=== PATIENT | male | born 1985 | race African-American/Black ===

== ENCOUNTER 2018-12-21 19:22 | Emergency (ER) | payer SELFPAY ==
[2018-12-21] MEDS ORDERED: NA CHLORIDE 0.9% 1,000 ML ONE (20:26)
[2018-12-21] MEDS ORDERED: ONDANSETRON 4 MG/2 ML VIAL ONE (20:26)
[2018-12-21 20:37] LABS: Absolute Lymphocytes (CBC) 2.2 K/uL (0.7-4.9); Absolute Monocytes 0.8 K/uL (0.1-1.3); Absolute Neutrophil 5.8 K/uL (1.8-8.0); Basophils % 0.6 % (0-1.3); Eosinophils % 0.9 % (0-4.4); Hematocrit 52.2 % (39.6-49.0); Lymphocytes % 24.2 % (15.3-44.8); MPV 8.8 fL (7.6-11.3); Monocytes % 8.6 % (3.3-12.3); RBC Red Blood Cell Count 5.73 M/uL (4.33-5.43)
[2018-12-21 21:01] LABS: Albumin 4.9 g/dL (3.4-5.0); Bilirubin Direct 0.1 mg/dL (0-0.2); Bilirubin Total 0.4 mg/dL (0.2-1.0); Potassium 3.9 mmol/L (3.5-5.1)
--- NOTE | 2018-12-21 21:59 | EDPHYS ---
Physician Documentation [facility] Name: Bucky Norton Age: 33 yrs Sex: Male : 1985 Arrival Date: 12/21/2018 Time: 19:24 Bed 8 Private MD: ED Physician Rohan Bright HPI: 12/21 20:40 This 33 yrs old Black Male presents to ER via Ambulatory with complaints of Pain All pm1 Over, Vomiting. 20:40 The patient presents to the emergency department with vomiting, diarrhea, abdominal pm1 pain, of the abdomen diffusely, described as crampy, and does not radiate. Onset: The symptoms/episode began/occurred yesterday. Possible causes: unknown. The symptoms are aggravated by nothing. The symptoms are alleviated by nothing. Associated signs and symptoms: Pertinent negatives: constipation, dysuria, fever. Severity of symptoms: in the emergency department the symptoms have improved Pain is currently a 0 / 10. The patient has not recently seen a physician. Historical: - Allergies: 19:53 No Known Allergies; fc - Home Meds: 19:53 None [Active]; fc - PMHx: 19:53 Hypertension; fc - PSHx: 19:53 None; fc - Immunization history:: Last tetanus immunization: unknown. - Social history:: Smoking status: Patient uses tobacco products, smokes one pack cigarettes per day. Patient uses alcohol, on a daily basis. 6 pack a day. Patient/guardian denies using street drugs. - Ebola Screening: : Patient negative for fever greater than or equal to 101.5 degrees Fahrenheit, and additional compatible Ebola Virus Disease symptoms Patient denies exposure to infectious person Patient denies travel to an Ebola-affected area in the 21 days before illness onset. ROS: 20:40 Constitutional: Negative for fever, chills, and weight loss, Eyes: Negative for injury, pm1 pain, redness, and discharge, ENT: Negative for injury, pain, and discharge, Neck: Negative for injury, pain, and swelling, Cardiovascular: Negative for chest pain, palpitations, and edema, Respiratory: Negative for shortness of breath, cough, wheezing, and pleuritic chest pain. 20:40 Back: Negative for injury and pain, : Negative for injury, bleeding, discharge, and swelling, MS/Extremity: Negative for injury and deformity, Skin: Negative for injury, rash, and discoloration, Neuro: Negative for headache, weakness, numbness, tingling, and seizure. 20:40 Abdomen/GI: Positive for abdominal pain, nausea, vomiting, and diarrhea, Negative for constipation. Exam: 20:40 Constitutional: This is a well developed, well nourished patient who is awake, alert, pm1 and in no acute distress. Head/Face: Normocephalic, atraumatic. Eyes: Pupils equal round and reactive to light, extra-ocular motions intact. Lids and lashes normal. Conjunctiva and sclera are non-icteric and not injected. Cornea within normal limits. Periorbital areas with no swelling, redness, or edema. ENT: Nares patent. No nasal discharge, no septal abnormalities noted. Tympanic membranes are normal and external auditory canals are clear. Oropharynx with no redness, swelling, or masses, exudates, or evidence of obstruction, uvula midline. Mucous membranes moist. Neck: Trachea midline, no thyromegaly or masses palpated, and no cervical lymphadenopathy. Supple, full range of motion without nuchal rigidity, or vertebral point tenderness. No Meningismus. Chest/axilla: Normal chest wall appearance and motion. Nontender with no deformity. No lesions are appreciated. Cardiovascular: Regular rate and rhythm with a normal S1 and S2. No gallops, murmurs, or rubs. Normal PMI, no JVD. No pulse deficits. Respiratory: Lungs have equal breath sounds bilaterally, clear to auscultation and percussion. No rales, rhonchi or wheezes noted. No increased work of breathing, no retractions or nasal flaring. 20:40 Back: No spinal tenderness. No costovertebral tenderness. Full range of motion. Skin: Warm, dry with normal turgor. Normal color with no rashes, no lesions, and no evidence of cellulitis. MS/ Extremity: Pulses equal, no cyanosis. Neurovascular intact. Full, normal range of motion. 20:40 Abdomen/GI: Inspection: obese Bowel sounds: normal, Palpation: abdomen is soft and non-tender, in all quadrants, mass, is not appreciated, rebound tenderness, is not appreciated. 20:40 Neuro: Orientation: is normal, Motor: is normal, moves all fours, Sensation: is normal, no obvious gross deficits, Gait: is steady, at a normal pace, without difficulty. 21:56 Abdomen/GI: Inspection: obese Bowel sounds: normal, Palpation: abdomen is soft and pm1 non-tender, in all quadrants, rebound tenderness, is not appreciated. Vital Signs: 19:53 BP 155 / 97; Pulse 102; Resp 20; Temp 98.6(O); Pulse Ox 97% on R/A; Weight 122.2 kg fc (M); Height 6 ft. 0 in. (182.88 cm) (R); Pain 6/10; 21:56 BP 143 / 104; Pulse 89; Resp 16; Pulse Ox 98% on R/A; la1 22:12 BP 143 / 98; Pulse 76; Resp 18; Temp 98.4(O); Pulse Ox 98% on R/A; Pain 0/10; la1 19:53 Body Mass Index 36.54 (122.20 kg, 182.88 cm) fc MDM: 20:04 Patient medically screened. pm1 21:56 Data reviewed: vital signs. Data interpreted: Pulse oximetry: on room air is 98 %. pm1 Interpretation: normal. Counseling: I had a detailed discussion with the patient and/or guardian regarding: the historical points, exam findings, and any diagnostic results supporting the discharge/admit diagnosis, lab results, the need for outpatient follow up, to return to the emergency department if symptoms worsen or persist or if there are any questions or concerns that arise at home. 21:56 Special discussion: Based on the patient's Hx, exam, and Dx evaluation, there is no pm1 indication for emergent surgery or inpatient Tx. It is understood by the patient/guardian that if the Sx's persist or worsen they need to return immediately for re-evaluation. 12/21 20:08 Order name: Basic Metabolic Panel; Complete Time: 21:26 pm1 12/21 20:08 Order name: CBC with Diff; Complete Time: 20:40 pm1 12/21 20:08 Order name: Creatinine for Radiology; Complete Time: 21:26 pm1 12/21 20:08 Order name: Hepatic Function; Complete Time: 21:26 pm1 12/21 20:08 Order name: Lipase; Complete Time: 21: pm1 12/21 20:08 Order name: IV Saline Lock; Complete Time: 20: pm12/21 20:08 Order name: Labs collected and sent; Complete Time: 20:22 pm1 Administered Medications: 20:21 Drug: NS 0.9% 1000 ml Route: IV; Rate: 1000 ml; Site: right antecubital; la1 21:30 Follow up: IV Status: Completed infusion; IV Intake: 1000ml la1 20:21 Drug: Zofran 4 mg Route: IVP; Site: right antecubital; la1 21:00 Follow up: Response: No adverse reaction; Nausea is decreased la1 Disposition: 12/21/18 21:58 Discharged to Home. Impression: Vomiting, Diarrhea, unspecified. - Condition is Stable. - Discharge Instructions: Food Choices to Help Relieve Diarrhea, Adult, Diarrhea, Adult, Nausea and Vomiting, Adult, Viral Gastroenteritis, Adult. - Prescriptions for Bentyl 20 mg Oral Tablet - take 1 tablet by ORAL route every 6 hours As needed; 20 tablet. Zofran 4 mg Oral Tablet - take 1 tablet by ORAL route every 12 hours As needed; 20 tablet. - Work release form, Medication Reconciliation Form, Thank You Letter, Antibiotic Education, Prescription Opioid Use form. - Follow up: Emergency Department; When: As needed; Reason: Worsening of condition. Follow up: Private Physician; When: 2 - 3 days; Reason: Recheck today's complaints, Continuance of care, Re-evaluation by your physician. - Problem is new. - Symptoms have improved. Addendum: 12/23/2018 15:30 Co-signature as Attending Physician, Rohan Bright MD. g s Signatures: Dispatcher [employer] EDIN Yamilex Schumacher RN RN David Sabillon RN RN la Jerardo Goss, EDITORIAL INTERN EDITORIAL INTERN pm Rohan Bright MD MD Corrections: (The following items were deleted from the chart) 12/21 22:20 21:58 12/21/2018 21:58 Discharged to Home. Impression: Vomiting; Diarrhea, unspecified. la1 Condition is Stable. Forms are Medication Reconciliation Form, Thank You Letter, Antibiotic Education, Prescription Opioid Use. Follow up: Emergency Department; When: As needed; Reason: Worsening of condition. Follow up: Private Physician; When: 2 - 3 days; Reason: Recheck today's complaints, Continuance of care, Re-evaluation by your physician. Problem is new. Symptoms have improved. pm1
--- NOTE | 2018-12-21 21:59 | ER ---
Nurse's Notes [facility] Name: Bucky Norton Age: 33 yrs Sex: Male : 1985 Arrival Date: 12/21/2018 Time: 19:24 Bed 8 Private MD: Diagnosis: Vomiting;Diarrhea, unspecified Presentation: 12/21 19:49 Presenting complaint: Patient states: that at lunch time he started to have abd fc cramping along with nausea and vomiting. Denies any diarrhea today. Pain to abd is worse in his right upper quad. He is also having pain to his left scapula area. Transition of care: patient was not received from another setting of care. Onset of symptoms was December 21, 2018 at 12:00. Risk Assessment: Do you want to hurt yourself or someone else? Patient reports no desire to harm self or others. Initial Sepsis Screen: Does the patient meet any 2 criteria? HR > 90 bpm. Yes Does the patient have a suspected source of infection? No. Patient's initial sepsis screen is negative. Care prior to arrival: None. 19:49 Method Of Arrival: Ambulatory 19:49 Acuity: RICHY 3 fc Triage Assessment: 19:53 General: Appears uncomfortable, obese, Behavior is calm, cooperative, appropriate for age. Pain: Complains of pain in right upper quadrant Pain currently is 6 out of 10 on a pain scale. Quality of pain is described as crampy, sharp, shooting, Pain began 8 hrs ago Is intermittent. EENT: No deficits noted. Neuro: Level of Consciousness is awake, alert, obeys commands, Oriented to person, place, time, situation, Appropriate for age. Cardiovascular: No deficits noted. Respiratory: No deficits noted. GI: Abdomen is round Reports lower abdominal pain, upper abdominal pain, cramping, nausea, vomiting. : No deficits noted. Derm: Skin is pink, warm \T\ dry. Musculoskeletal: Circulation, motion, and sensation intact. Capillary refill < 3 seconds, Range of motion: intact in all extremities. Historical: - Allergies: 19:53 No Known Allergies; fc - Home Meds: 19:53 None [Active]; fc - PMHx: 19:53 Hypertension; fc - PSHx: 19:53 None; fc - Immunization history:: Last tetanus immunization: unknown. - Social history:: Smoking status: Patient uses tobacco products, smokes one pack cigarettes per day. Patient uses alcohol, on a daily basis. 6 pack a day. Patient/guardian denies using street drugs. - Ebola Screening: : Patient negative for fever greater than or equal to 101.5 degrees Fahrenheit, and additional compatible Ebola Virus Disease symptoms Patient denies exposure to infectious person Patient denies travel to an Ebola-affected area in the 21 days before illness onset. Screenin:22 Abuse screen: Denies threats or abuse. Nutritional screening: No deficits noted. la1 Tuberculosis screening: No symptoms or risk factors identified. Fall Risk None identified. Assessment: 20:22 General: Appears in no apparent distress. Behavior is calm, cooperative. Neuro: Level la1 of Consciousness is awake, alert, obeys commands. Cardiovascular: Patient's skin is warm and dry. Respiratory: Airway is patent Respiratory effort is even, unlabored. GI: Abdomen is non-distended, obese, Reports nausea, vomiting. : No signs and/or symptoms were reported regarding the genitourinary system. 21:25 Reassessment: Patient appears in no apparent distress at this time. No changes from la1 previously documented assessment. Patient and/or family updated on plan of care and expected duration. Pain level reassessed. Patient is alert, oriented x 3, equal unlabored respirations, skin warm/dry/pink. 22:10 Reassessment: Pt states that he held down his water and is feeling better and is ready la1 to go home. General: Appears in no apparent distress. comfortable, Behavior is calm, cooperative, appropriate for age. Pain: Denies pain. Neuro: Level of Consciousness is awake, alert, obeys commands, Oriented to person, place, time, situation. Cardiovascular: No deficits noted. Respiratory: No deficits noted. GI: Abdomen is round obese, Bowel sounds present X 4 quads. Patient currently denies nausea, vomiting. : No deficits noted. EENT: No deficits noted. Derm: Skin is intact, Skin is dry, Skin is normal, Skin temperature is warm. Musculoskeletal: Circulation, motion, and sensation intact. Capillary refill < 3 seconds, Range of motion: intact in all extremities. Vital Signs: 19:53 BP 155 / 97; Pulse 102; Resp 20; Temp 98.6(O); Pulse Ox 97% on R/A; Weight 122.2 kg fc (M); Height 6 ft. 0 in. (182.88 cm) (R); Pain 6/10; 21:56 BP 143 / 104; Pulse 89; Resp 16; Pulse Ox 98% on R/A; la1 22:12 BP 143 / 98; Pulse 76; Resp 18; Temp 98.4(O); Pulse Ox 98% on R/A; Pain 0/10; la1 19:53 Body Mass Index 36.54 (122.20 kg, 182.88 cm) ED Course: 19:24 Patient arrived in ED. as 19:53 Triage completed. 19:53 Arm band placed on Patient placed in an exam room, on a stretcher. 19:59 Jerardo Goss NP is PHCP. pm1 19:59 Rohan Bright MD is Attending Physician. pm1 20:10 David Sabillon RN is Primary Nurse. la1 20:22 No provider procedures requiring assistance completed. Inserted saline lock: 22 gauge la1 in right antecubital area, using aseptic technique. Blood collected. 20:23 Call light in reach. la1 22:20 IV discontinued, intact, bleeding controlled, No redness/swelling at site. Pressure la1 dressing applied. Administered Medications: 20:21 Drug: NS 0.9% 1000 ml Route: IV; Rate: 1000 ml; Site: right antecubital; la1 21:30 Follow up: IV Status: Completed infusion; IV Intake: 1000ml la1 20:21 Drug: Zofran 4 mg Route: IVP; Site: right antecubital; la1 21:00 Follow up: Response: No adverse reaction; Nausea is decreased la1 Intake: 21:30 IV: 1000ml; Total: 1000ml. la1 Outcome: 21:58 Discharge ordered by . pm1 22:18 Discharged to home ambulatory, with significant other. la1 22:18 Condition: good 22:18 Discharge instructions given to patient, family, Instructed on discharge instructions, follow up and referral plans. no drinking with medication, no driving heavy equipment, medication usage, diet Demonstrated understanding of instructions, follow-up care, medications, diet Prescriptions given X 2. 22:20 Patient left the ED. la1 Signatures: Yamilex Schumacher RN RN Mandy Cobian Lee, RN RN la Jerardo Goss NP LEADING [employer]FIGH[employer] pm1 Corrections: (The following items were deleted from the chart) 20:01 19:53 BP 155 / 97; Pulse 102bpm; Resp 20bpm; Pulse Ox 97% RA; Temp 98.6F Oral; 113.4 kg fc Reported; Height 6 ft. 0 in. Reported; BMI: 33.9; Pain 6/10; fc
== END 2018-12-21 22:20 | disposition home or self-care (01) ==
LOC: ER 19:22
DX: R11.10 Vomiting, unspecified (principal); R19.7 Diarrhea, unspecified; R10.9 Unspecified abdominal pain; I10 Essential (primary) hypertension; F17.210 Nicotine dependence, cigarettes, uncomplicated
CPT/HCPCS: 36415; 80048; 80076; 83690; 85025; 96361; 96374; 99284; J2405; J7030

== ENCOUNTER 2019-05-15 07:55 | Emergency (ER) | payer SELFPAY ==
--- NOTE | 2019-05-15 08:47 | EDPHYS ---
Physician Documentation [facility] Name: Bucky Norton Age: 34 yrs Sex: Male : 1985 Arrival Date: 05/15/2019 Time: 08:00 Bed 13 Private MD: ED Physician Joni Watts HPI: 05/15 17:52 This 34 yrs old Black Male presents to ER via Ambulatory with complaints of Sore Throat.kdr 17:52 The patient presents with sore throat, dysphagia, of solids, of liquids. The patient kdr describes throat pain as scratchy. Onset: The symptoms/episode began/occurred gradually, Sunday. Severity of symptoms: At their worst the symptoms were mild, moderate, just prior to arrival, in the emergency department the symptoms are unchanged. Modifying factors: The symptoms are alleviated by nothing, the symptoms are aggravated by fluids, foods, swallowing, Patient's oral intake status: good unaware of sick contact. Associated signs and symptoms: The patient has no apparent associated signs or symptoms. The patient has experienced similar episodes in the past, a few times. The patient has not recently seen a physician. Historical: - Allergies: 08:02 No Known Allergies; rb1 - Home Meds: 08:02 None [Active]; rb1 - PMHx: 08:02 Hypertension; rb1 - PSHx: 08:02 None; rb1 - Immunization history:: Adult Immunizations up to date. - Social history:: Smoking status: Patient uses tobacco products, smokes one-half pack cigarettes per day. - Ebola Screening: : Patient negative for fever greater than or equal to 101.5 degrees Fahrenheit, and additional compatible Ebola Virus Disease symptoms. ROS: 17:52 Constitutional: Negative for fever, chills, and weight loss, Eyes: Negative for injury, kdr pain, redness, and discharge, Neck: Negative for injury, pain, and swelling, Cardiovascular: Negative for chest pain, palpitations, and edema, Respiratory: Negative for shortness of breath, cough, wheezing, and pleuritic chest pain, Abdomen/GI: Negative for abdominal pain, nausea, vomiting, diarrhea, and constipation. 17:52 ENT: Positive for difficulty swallowing, Negative for hoarseness. Exam: 17:52 Constitutional: This is a well developed, well nourished patient who is awake, alert, kdr and in no acute distress. Head/Face: Normocephalic, atraumatic. Eyes: Pupils equal round and reactive to light, extra-ocular motions intact. Lids and lashes normal. Conjunctiva and sclera are non-icteric and not injected. Cornea within normal limits. Periorbital areas with no swelling, redness, or edema. Neck: Trachea midline, no thyromegaly or masses palpated, and no cervical lymphadenopathy. Supple, full range of motion without nuchal rigidity, or vertebral point tenderness. No Meningismus. Chest/axilla: Normal chest wall appearance and motion. Nontender with no deformity. No lesions are appreciated. Cardiovascular: Regular rate and rhythm with a normal S1 and S2. No gallops, murmurs, or rubs. Normal PMI, no JVD. No pulse deficits. Respiratory: Lungs have equal breath sounds bilaterally, clear to auscultation and percussion. No rales, rhonchi or wheezes noted. No increased work of breathing, no retractions or nasal flaring. Abdomen/GI: Soft, non-tender, with normal bowel sounds. No distension or tympany. No guarding or rebound. No evidence of tenderness throughout. 17:52 ENT: TM's: are normal, Nose: is normal, Mouth: is normal, Posterior pharynx: Uvula: normal, swelling, that is mild, erythema, that is moderate, exudate, is not appreciated. Vital Signs: 08:02 BP 151 / 98; Pulse 83; Resp 20; Temp 98.0(O); Pulse Ox 97% on R/A; Weight 122.02 kg rb1 (R); Height 6 ft. 0 in. (182.88 cm) (R); Pain 7/10; 09:02 BP 120 / 95; Pulse 86; Resp 19; Pulse Ox 98% on R/A; rb1 08:02 Body Mass Index 36.48 (122.02 kg, 182.88 cm) rb1 MDM: 08:46 Patient medically screened. kdr 17:52 Data reviewed: vital signs, nurses notes, lab test result(s), radiologic studies. kdr Counseling: I had a detailed discussion with the patient and/or guardian regarding: the historical points, exam findings, and any diagnostic results supporting the discharge/admit diagnosis, lab results, radiology results, the need for outpatient follow up. 05/15 08:17 Order name: Strep; Complete Time: 08:45 rb1 Administered Medications: 09:05 Drug: Bicillin L-A 1.2 million units Route: IM; Site: right gluteus; rb1 09:20 Follow up: Response: No adverse reaction rb1 09:05 Drug: predniSONE 60 mg Route: PO; rb1 09:20 Follow up: Response: No adverse reaction rb1 09:05 Drug: Pepcid 20 mg Route: PO; rb1 09:20 Follow up: Response: No adverse reaction rb1 Disposition: 05/15/19 08:46 Discharged to Home. Impression: Streptococcal pharyngitis, Acute laryngopharyngitis. - Condition is Stable. - Discharge Instructions: Pharyngitis, Strep Throat. - Prescriptions for Prednisone 20 mg Oral Tablet - take 2 tablet by ORAL route once daily for 5 days; 10 tablet. Pepcid 20 mg Oral Tablet - take 1 tablet by ORAL route once daily; 20 tablet. - Medication Reconciliation Form, Thank You Letter, Antibiotic Education, Work release form form. - Follow up: Private Physician; When: 2 - 3 days; Reason: If symptoms return, Further diagnostic work-up, Recheck today's complaints, Continuance of care, Re-evaluation by your physician. - Problem is new. - Symptoms have improved. Signatures: Dispatcher [employer] EDMS Joni Watts MD MD kdr Barber, Rebecca, RN RN rb1 Corrections: (The following items were deleted from the chart) 09:22 08:46 05/15/2019 08:46 Discharged to Home. Impression: Streptococcal pharyngitis; Acute rb1 laryngopharyngitis. Condition is Stable. Forms are Medication Reconciliation Form, Thank You Letter, Antibiotic Education, Prescription Opioid Use. Follow up: Private Physician; When: 2 - 3 days; Reason: If symptoms return, Further diagnostic work-up, Recheck today's complaints, Continuance of care, Re-evaluation by your physician. Problem is new. Symptoms have improved. kdr
--- NOTE | 2019-05-15 08:47 | ER ---
Nurse's Notes [facility] Name: Bucky Norton Age: 34 yrs Sex: Male : 1985 Arrival Date: 05/15/2019 Time: 08:00 Bed 13 Private MD: Diagnosis: Streptococcal pharyngitis;Acute laryngopharyngitis Presentation: 05/15 08:02 Presenting complaint: Patient states: Sore throat since Sunday, pain when swallowing. rb1 Transition of care: patient was not received from another setting of care. Onset of symptoms was May 12, 2019. Risk Assessment: Do you want to hurt yourself or someone else? Patient reports no desire to harm self or others. Initial Sepsis Screen: Does the patient meet any 2 criteria? No. Patient's initial sepsis screen is negative. Does the patient have a suspected source of infection? No. Patient's initial sepsis screen is negative. Care prior to arrival: None. 08:02 Method Of Arrival: Ambulatory rb1 08:02 Acuity: RICHY 3 rb1 Triage Assessment: 08:02 General: Appears in no apparent distress. comfortable, Behavior is calm, cooperative, rb1 Denies fever. Pain: Complains of pain in throat Pain currently is 7 out of 10 on a pain scale. Pain began Sunday. EENT: Throat has enlarged tonsils. Neuro: Level of Consciousness is awake, alert, obeys commands, Oriented to person, place, time, situation. Cardiovascular: Capillary refill < 3 seconds is brisk in bilateral fingers. Respiratory: Reports cough that is non-productive, Airway is patent Respiratory effort is even, unlabored, Respiratory pattern is regular, symmetrical. GI: No signs and/or symptoms were reported involving the gastrointestinal system. : No signs and/or symptoms were reported regarding the genitourinary system. Derm: Skin is dry, Skin is normal, Skin temperature is warm. Historical: - Allergies: 08:02 No Known Allergies; rb1 - Home Meds: 08: None [Active]; rb1 - PMHx: 08:02 Hypertension; rb1 - PSHx: 08:02 None; rb1 - Immunization history:: Adult Immunizations up to date. - Social history:: Smoking status: Patient uses tobacco products, smokes one-half pack cigarettes per day. - Ebola Screening: : Patient negative for fever greater than or equal to 101.5 degrees Fahrenheit, and additional compatible Ebola Virus Disease symptoms. Screenin:02 Abuse screen: Denies threats or abuse. Nutritional screening: No deficits noted. rb1 Tuberculosis screening: No symptoms or risk factors identified. Fall Risk None identified. Assessment: 08:02 General: See triage assessment. rb1 08:54 Reassessment: Patient appears in no apparent distress at this time. Pt. is resting with rb1 eyes closed, respirations even, unlabored. 09:07 Reassessment: Discharge pending due to shot time. rb1 Vital Signs: 08:02 BP 151 / 98; Pulse 83; Resp 20; Temp 98.0(O); Pulse Ox 97% on R/A; Weight 122.02 kg rb1 (R); Height 6 ft. 0 in. (182.88 cm) (R); Pain 7/10; 09:02 BP 120 / 95; Pulse 86; Resp 19; Pulse Ox 98% on R/A; rb1 08:02 Body Mass Index 36.48 (122.02 kg, 182.88 cm) rb1 ED Course: 08:00 Patient arrived in ED. as 08:00 Joni Watts MD is Attending Physician. kdr 08:02 Tracee Cho, JULIA is Primary Nurse. rb1 08:02 Arm band placed on right wrist. rb1 08:02 Patient has correct armband on for positive identification. Bed in low position. Call rb1 light in reach. Side rails up X 1. Pulse ox on. NIBP on. 08:10 Triage completed. rb1 09:22 No provider procedures requiring assistance completed. Patient did not have IV access rb1 during this emergency room visit. Administered Medications: 09:05 Drug: Bicillin L-A 1.2 million units Route: IM; Site: right gluteus; rb1 09:20 Follow up: Response: No adverse reaction rb1 09:05 Drug: predniSONE 60 mg Route: PO; rb1 09:20 Follow up: Response: No adverse reaction rb1 09:05 Drug: Pepcid 20 mg Route: PO; rb1 09:20 Follow up: Response: No adverse reaction rb1 Outcome: 08:46 Discharge ordered by . kdr 09:22 Patient left the ED. rb1 09:22 Discharged to home ambulatory. rb1 09:22 Condition: stable 09:22 Discharge instructions given to patient, Instructed on discharge instructions, follow up and referral plans. medication usage, Demonstrated understanding of instructions, follow-up care, medications, Prescriptions given X 2. Signatures: Joni Watts MD MD kdr Martinez, Amelia as Barber, Rebecca, RN RN rb1 Corrections: (The following items were deleted from the chart) 09:48 09:22 Discharge instructions given to patient, Instructed on discharge instructions, rb1 follow up and referral plans. rb1
[2019-05-15] MEDS ORDERED: predniSONE 20 MG TAB ONE (09:02)
[2019-05-15] MEDS ORDERED: FAMOTIDINE 20 MG TAB ONE (09:02)
[2019-05-15] MEDS ORDERED: PEN G BENZ LA 1.2MU/2ML SYRINGE IM ONE (09:03)
[2019-05-15 09:43] VITALS: TEMP 98
[2019-05-15 09:44] VITALS: BP 120/95; O2SAT 98
== END 2019-05-15 09:22 | disposition home or self-care (01) ==
LOC: ER 07:55
DX: J02.0 Streptococcal pharyngitis (principal); I10 Essential (primary) hypertension; F17.210 Nicotine dependence, cigarettes, uncomplicated
CPT/HCPCS: 87081; 96372; 99283; J0561; J7512

== ENCOUNTER 2019-08-09 22:31 | Inpatient (IN) | payer BC, SELFPAY ==
[2019-08-09] MEDS ORDERED: NA CHLORIDE 0.9% 2,000 ML ONE (23:27)
[2019-08-09] MEDS ORDERED: dexAMETHasone 10 MG/ML VIAL ONE (23:27)
[2019-08-09] MEDS ORDERED: CLINDAMYCIN 900MG/D5W 900 MG/50 ML IVPB IV ONE (23:27)
[2019-08-09] MEDS ORDERED: CEFTRIAXONE/SWI 1gm 2 GM/20 ML SYR ONE (23:28)
[2019-08-09] MEDS ORDERED: KETOROLAC 30 MG/ML INJ ONE (23:42)
[2019-08-09 23:47] LABS: Absolute Lymphocytes (CBC) 1.9 K/uL (0.7-4.9); Basophils % 0.6 % (0-1.3); Hematocrit 41.8 % (39.6-49.0); MPV 8.7 fL (7.6-11.3); RBC Red Blood Cell Count 4.68 M/uL (4.33-5.43)
[2019-08-10 00:08] LABS: ALT/SGPT 36 U/L (12-78); AST/SGOT 17 U/L (15-37); Albumin 3.5 g/dL (3.4-5.0); Alkaline Phosphatase 83 U/L (45-117); BUN Blood Urea Nitrogen 6 mg/dL (7-18); Bicarbonate 28 mmol/L (21-32); Bilirubin Total 0.2 mg/dL (0.2-1.0); Glucose Level 150 mg/dL (74-106); Potassium 3.6 mmol/L (3.5-5.1); Protein, Total 8.3 g/dL (6.4-8.2); Sodium Level 140 mmol/L (136-145)
[2019-08-10] MEDS ORDERED: ONDANSETRON 4 MG/2 ML VIAL ONE (01:17)
[2019-08-10] MEDS ORDERED: dexAMETHasone 10 MG/ML VIAL ONE (01:17)
[2019-08-10] MEDS ORDERED: FAMOTIDINE 20 MG/2 ML VIAL IV ONE (01:20)
[2019-08-10] MEDS ORDERED: NA CHLORIDE 0.9% 100 ML IV ONE ×2 (01:20→05:58)
--- NOTE | 2019-08-10 01:21 | EDPHYS ---
Physician Documentation [facility] Name: Bucky Norton Age: 34 yrs Sex: Male : 1985 Arrival Date: 08/09/2019 Time: 22:37 Bed 16 Private MD: ED Physician Dylan Bettencourt HPI: 08/09 22:58 This 34 yrs old Black Male presents to ER via Unassigned with complaints of Congestion, cara Cough, Throat feel like it's closing. 22:58 The patient or guardian reports cough. Onset: The symptoms/episode began/occurred 2 cara day(s) ago. Severity of symptoms: At their worst the symptoms were moderate, in the emergency department the symptoms are unchanged. Modifying factors: The symptoms are alleviated by nothing, the symptoms are aggravated by talking. Associated signs and symptoms: The patient has no apparent associated signs or symptoms. The patient has not experienced similar symptoms in the past. Historical: - Allergies: 08/10 03:05 No Known Allergies; - Home Meds: 03:05 None [Active]; - PMHx: 03:05 Hypertension; Diabetes - NIDDM; - Immunization history:: Adult Immunizations not up to date. - Social history:: Smoking status: Patient reports the use of cigarette tobacco products. - Family history:: not pertinent. - Ebola Screening: : Patient negative for fever greater than or equal to 101.5 degrees Fahrenheit, and additional compatible Ebola Virus Disease symptoms Patient denies exposure to infectious person. ROS: 08/09 22:58 Constitutional: Negative for fever, chills, and weight loss, Eyes: Negative for injury, cara pain, redness, and discharge, Neck: Negative for injury, pain, and swelling, Cardiovascular: Negative for chest pain, palpitations, and edema, Respiratory: Negative for shortness of breath, cough, wheezing, and pleuritic chest pain, Abdomen/GI: Negative for abdominal pain, nausea, vomiting, diarrhea, and constipation, Back: Negative for injury and pain, : Negative for injury, bleeding, discharge, and swelling, MS/Extremity: Negative for injury and deformity, Skin: Negative for injury, rash, and discoloration, Neuro: Negative for headache, weakness, numbness, tingling, and seizure, Psych: Negative for depression, anxiety, suicide ideation, homicidal ideation, and hallucinations, Allergy/Immunology: Negative for hives, rash, and allergies, Endocrine: Negative for neck swelling, polydipsia, polyuria, polyphagia, and marked weight changes, Hematologic/Lymphatic: Negative for swollen nodes, abnormal bleeding, and unusual bruising. ENT: Positive for rhinorrhea, sore throat. Exam: 23:00 Constitutional: This is a well developed, well nourished patient who is awake, alert, cara and in no acute distress. Head/Face: Normocephalic, atraumatic. Eyes: Pupils equal round and reactive to light, extra-ocular motions intact. Lids and lashes normal. Conjunctiva and sclera are non-icteric and not injected. Cornea within normal limits. Periorbital areas with no swelling, redness, or edema. Neck: Trachea midline, no thyromegaly or masses palpated, and no cervical lymphadenopathy. Supple, full range of motion without nuchal rigidity, or vertebral point tenderness. No Meningismus. Chest/axilla: Normal chest wall appearance and motion. Nontender with no deformity. No lesions are appreciated. Cardiovascular: Regular rate and rhythm with a normal S1 and S2. No gallops, murmurs, or rubs. Normal PMI, no JVD. No pulse deficits. Abdomen/GI: Soft, non-tender, with normal bowel sounds. No distension or tympany. No guarding or rebound. No evidence of tenderness throughout. Back: No spinal tenderness. No costovertebral tenderness. Full range of motion. Male : Normal genitalia with no discharge or lesions. Skin: Warm, dry with normal turgor. Normal color with no rashes, no lesions, and no evidence of cellulitis. MS/ Extremity: Pulses equal, no cyanosis. Neurovascular intact. Full, normal range of motion. Neuro: Awake and alert, GCS 15, oriented to person, place, time, and situation. Cranial nerves II-XII grossly intact. Motor strength 5/5 in all extremities. Sensory grossly intact. Cerebellar exam normal. Normal gait. Psych: Awake, alert, with orientation to person, place and time. Behavior, mood, and affect are within normal limits. 23:00 ENT: Posterior pharynx: Tonsils: with erythema, with exudate, Uvula: edematous, swelling, that is mild, erythema, that is moderate, exudate, that is moderate, peritonsillar mass, is noted on the right. Vital Signs: 23:51 BP 158 / 99; Pulse 78; Resp 20; Temp 98.9; Pulse Ox 94% on R/A; Weight 132 kg; Height 6 ls4 ft. (182.88 cm); Pain 7/; 08/10 02:00 BP 141 / 106; Pulse 81; Resp 18; Pulse Ox 93% on R/A; wh 08/09 23:51 Body Mass Index 39.47 (132.00 kg, 182.88 cm) [facility] 08/09 23:51 NO OXYGEN APPLIED. PT HAS SWOLLEN THROAT AND MONITORING FOR WORSENING SYMPTOMS [facility] MDM: 22:51 Patient medically screened. [facility] 23:02 Data reviewed: vital signs, nurses notes, lab test result(s), radiologic studies, CT [facility] scan, plain films. 08/09 22:51 Order name: Strep; Complete Time: 23:43 [facility] 08/09 22:58 Order name: CBC with Diff; Complete Time: 00:03 [facility] 08/09 22:58 Order name: Comprehensive Metabolic Panel; Complete Time: 00:32 [facility] 08/09 23:15 Order name: Throat Culture [facility] 08/10 00:03 Order name: [place] Screen Profile; Complete Time: 00:32 [facility] 08/10 09:22 Order name: Glucose, Ancillary Testing [facility] 08/09 22:58 Order name: CT Soft Tissue Neck W/contr [facility] 08/09 23:03 Order name: Chest Single View XRAY [facility] 08/10 02:38 Order name: CONS Pharmacy Consult [facility] 08/10 02:38 Order name: NPO [facility] Administered Medications: 23:10 Drug: NS 0.9% 1000 ml Route: IV; Rate: 1 bolus; Site: left antecubital; [facility] 08/10 03:13 Follow up: Response: No adverse reaction; IV Status: Completed infusion 08/09 23:10 Drug: NS 0.9% 1000 ml Route: IV; Rate: 1 bolus; Site: left antecubital; [facility] 08/10 00:10 Follow up: IV Status: Completed infusion; IV Intake: 1000ml [facility] 08/09 23:10 Drug: Decadron - Dexamethasone 10 mg Route: IVP; Site: left antecubital; [facility] 23:20 Follow up: Response: No adverse reaction [facility] 08/10 01:34 Follow up: error ls4 08/09 23:10 Drug: Clindamycin 900 mg Route: IVPB; Infused Over: 30 mins; Site: left antecubital; ls4 23:40 Follow up: IV Status: Completed infusion; IV Intake: 50ml 4 23:10 Drug: Rocephin 2 grams Route: IV; Rate: per protocol; Site: left antecubital; 4 08/10 01:10 Follow up: Response: No adverse reaction ls4 03:13 Follow up: Response: No adverse reaction; IV Status: Completed infusion 08/09 23:41 Drug: TORadol 30 mg Route: IVP; Site: left antecubital; 4 08/10 01:34 Follow up: Response: No adverse reaction; Marked relief of symptoms; Pain is decreased [facility] 01:33 Drug: Zofran 4 mg Route: IVP; Site: left antecubital; 4 01:58 Follow up: Response: No adverse reaction; Nausea is decreased 01:33 Drug: Decadron - Dexamethasone 10 mg Route: IVP; Site: left antecubital; ls4 01:58 Follow up: Response: No adverse reaction 01:33 Drug: Pepcid 40 mg Route: IVP; Site: left antecubital; ls4 01:58 Follow up: Response: No adverse reaction 01:58 Drug: Albuterol - atroVENT (3:1) (2.5 mg - 0.5 mg) 3 ml Route: Nebulizer; 01:58 Follow up: Response: No adverse reaction; Wheezing diminished wh Disposition: 08/10/19 01:21 Hospitalization ordered by Guillermina Pruitt for Inpatient Admission. Preliminary diagnosis are Acute pharyngitis, Dysphagia. - Bed requested for Telemetry/MedSurg (Inpatient). - Status is Inpatient Admission. ae4 - Condition is Fair. - Problem is new. - Symptoms have improved. UTI on Admission? No Signatures: Dispatcher [employer] EDMS Lisset Alvarez RN RN mw Anderson, Corey, MD MD cha Habalo, Winsy Mary Ann Husain Lisa, RN RN ls4 Joe Torres RN RN ae4 Corrections: (The following items were deleted from the chart) 02:15 01:21 Hospitalization Ordered by Guillermina Pruitt MD for Inpatient Admission. Preliminary mw diagnosis is Acute pharyngitis; Dysphagia. Bed requested for Telemetry/MedSurg (Inpatient). Status is Inpatient Admission. Condition is Fair. Problem is new. Symptoms have improved. UTI on Admission? No. cara 12:49 02:15 08/10/2019 01:21 Hospitalization Ordered by Guillermina Pruitt MD for Inpatient eb Admission. Preliminary diagnosis is Acute pharyngitis; Dysphagia. Bed requested for [facility] ER HOLD. Status is Inpatient Admission. Condition is Fair. Problem is new. Symptoms have improved. UTI on Admission? No. mw 13:10 12:49 08/10/2019 01:21 Hospitalization Ordered by Guillermina Pruitt MD for Inpatient ae4 Admission. Preliminary diagnosis is Acute pharyngitis; Dysphagia. Bed requested for Telemetry/MedSurg (Inpatient). Status is Inpatient Admission. Condition is Fair. Problem is new. Symptoms have improved. UTI on Admission? No. eb
--- NOTE | 2019-08-10 01:21 | ER ---
Nurse's Notes [facility] Name: Bucky Norton Age: 34 yrs Sex: Male : 1985 Arrival Date: 08/09/2019 Time: 22:37 Bed 16 Private MD: Diagnosis: Acute pharyngitis;Dysphagia Presentation: 08/09 23:47 Presenting complaint: states: Pt has had sore throat for a week, now feels like ls4 his throat is closing. Transition of care: patient was not received from another setting of care. Onset of symptoms was August 09, 2019 at 17:00. Risk Assessment: Do you want to hurt yourself or someone else? Patient reports no desire to harm self or others. Initial Sepsis Screen: Does the patient meet any 2 criteria? No. Patient's initial sepsis screen is negative. Does the patient have a suspected source of infection? No. Patient's initial sepsis screen is negative. Care prior to arrival: None. 23:47 Method Of Arrival: Ambulatory ls4 23:47 Acuity: RICHY 2 ls4 Triage Assessment: 23:47 General: Appears uncomfortable, obese, Behavior is calm, cooperative. Pain: Complains ls4 of pain in soft palate, left aspect of posterior pharynx and right aspect of posterior pharynx Pain currently is 10 out of 10 on a pain scale. EENT: Throat is reddened has patchy exudate has enlarged tonsils on right with gag reflex present, Reports difficulty swallowing since all day today. Neuro: No deficits noted. Cardiovascular: No deficits noted. Respiratory: Airway Respiratory effort is even, unlabored, Respiratory pattern is regular, Breath sounds are clear bilaterally. the patient has severe shortness of breath. Derm: Skin is pink, warm \T\ dry. Historical: - Allergies: 08/10 03:05 No Known Allergies; - Home Meds: 03:05 None [Active]; - PMHx: 03:05 Hypertension; Diabetes - NIDDM; - Immunization history:: Adult Immunizations not up to date. - Social history:: Smoking status: Patient reports the use of cigarette tobacco products. - Family history:: not pertinent. - Ebola Screening: : Patient negative for fever greater than or equal to 101.5 degrees Fahrenheit, and additional compatible Ebola Virus Disease symptoms Patient denies exposure to infectious person. Screenin:00 Abuse screen: Denies threats or abuse. Denies injuries from another. Nutritional screening: No deficits noted. Tuberculosis screening: No symptoms or risk factors identified. Fall Risk None identified. Assessment: 00:00 Neuro: No deficits noted. Cardiovascular: No deficits noted. Cardiovascular: Denies ls4 chest pain, Chest pain is denied. Cardiovascular: Heart tones S1 S2. Respiratory: Breath sounds are clear bilaterally. Respiratory: No deficits noted. Airway is patent Trachea midline Respiratory effort is even, unlabored. Vital Signs: 08/09 23:51 BP 158 / 99; Pulse 78; Resp 20; Temp 98.9; Pulse Ox 94% on R/A; Weight 132 kg; Height 6 ls4 ft. (182.88 cm); Pain 7/10; 08/10 02:00 BP 141 / 106; Pulse 81; Resp 18; Pulse Ox 93% on R/A; wh 08/09 23:51 Body Mass Index 39.47 (132.00 kg, 182.88 cm) ls4 08/09 23:51 NO OXYGEN APPLIED. PT HAS SWOLLEN THROAT AND MONITORING FOR WORSENING SYMPTOMS ls4 ED Course: 22:37 Patient arrived in ED. es 22:41 Dylan Bettencourt MD is Attending Physician. cara 22:49 Arm band placed on. ls4 22:49 Labs ordered per protocol. Drawn by ED staff. ls4 22:51 Debora Duong, JULIA is Primary Nurse. ls4 23:22 Inserted saline lock: 18 gauge in left antecubital area, using aseptic technique. Blood ls4 collected. 23:49 Triage completed. ls4 23:57 Chest Single View XRAY In Process Unspecified. EDMT 08/10 01:19 Guillermina Pruitt MD is Hospitalizing Provider. cara 01:30 CT Soft Tissue Neck W/contr In Process Unspecified. EDMS 02:00 Patient has correct armband on for positive identification. Bed in low position. Call light in reach. Side rails up X 1. Pulse ox on. NIBP on. 03:05 No provider procedures requiring assistance completed. Patient admitted, IV remains in place. Administered Medications: 08/09 23:10 Drug: NS 0.9% 1000 ml Route: IV; Rate: 1 bolus; Site: left antecubital; ls4 08/10 03:13 Follow up: Response: No adverse reaction; IV Status: Completed infusion 08/09 23:10 Drug: NS 0.9% 1000 ml Route: IV; Rate: 1 bolus; Site: left antecubital; 4 08/10 00:10 Follow up: IV Status: Completed infusion; IV Intake: 1000ml [facility] 08/09 23:10 Drug: Decadron - Dexamethasone 10 mg Route: IVP; Site: left antecubital; ls4 23:20 Follow up: Response: No adverse reaction [facility] 08/10 01:34 Follow up: error [facility] 08/09 23:10 Drug: Clindamycin 900 mg Route: IVPB; Infused Over: 30 mins; Site: left antecubital; ls4 23:40 Follow up: IV Status: Completed infusion; IV Intake: 50ml 4 23:10 Drug: Rocephin 2 grams Route: IV; Rate: per protocol; Site: left antecubital; 4 08/10 01:10 Follow up: Response: No adverse reaction 4 03:13 Follow up: Response: No adverse reaction; IV Status: Completed infusion 08/09 23:41 Drug: TORadol 30 mg Route: IVP; Site: left antecubital; 4 08/10 01:34 Follow up: Response: No adverse reaction; Marked relief of symptoms; Pain is decreased 4 01:33 Drug: Zofran 4 mg Route: IVP; Site: left antecubital; ls4 01:58 Follow up: Response: No adverse reaction; Nausea is decreased 01:33 Drug: Decadron - Dexamethasone 10 mg Route: IVP; Site: left antecubital; ls4 01:58 Follow up: Response: No adverse reaction 01:33 Drug: Pepcid 40 mg Route: IVP; Site: left antecubital; ls4 01:58 Follow up: Response: No adverse reaction 01:58 Drug: Albuterol - atroVENT (3:1) (2.5 mg - 0.5 mg) 3 ml Route: Nebulizer; 01:58 Follow up: Response: No adverse reaction; Wheezing diminished Intake: 08/09 23:40 IV: 50ml; Total: 50ml. 4 08/10 00:10 IV: 1000ml; Total: 1050ml. ls4 Outcome: 01:21 Decision to Hospitalize by Provider. cara 03:06 Admitted to ER Hold. Please see [facility] for further documentation. 03:06 Condition: stable 03:06 Instructed on the need for admit. 13:08 Admitted to Tele accompanied by tech, family with patient, via wheelchair, room 409, ae4 with chart, Report called to JULIA Camejo 13:08 Condition: stable 13:08 Instructed on the need for admit, Demonstrated understanding of instructions. 13:10 Patient left the ED. ae4 Signatures: Dispatcher [employer] Dylan Fernández MD MD cha Salyer, Edna es Habalo, Winsy Debora Duong, RN RN ls4 Joe Torres RN RN ae4 Corrections: (The following items were deleted from the chart) 01:34 01:10 Response: No adverse reaction ls4 ls4 :34 08/09 23:40 Response: No adverse reaction ls4 ls4
[2019-08-10] MEDS ORDERED: IPRATROPIUM BROM 0.5MG/2.5ML ONE (01:41)
[2019-08-10] MEDS ORDERED: ALBUTEROL 2.5 MG/3 ML NEB SOL ONE (01:41)
[2019-08-10] MEDS ORDERED: MORPHINE 4 MG/ML SYR IV PRN (02:33)
[2019-08-10] MEDS ORDERED: ONDANSETRON 4 MG/2 ML VIAL IV PRN (02:33)
[2019-08-10] MEDS: NA CHLORIDE 0.9% 1,000 ML IV SCH ×2 (03:00→18:08)
[2019-08-10 03:20] VITALS: BMI 39.3
[2019-08-10] MEDS: Levofloxacin 750mg IV 750 MG/150 ML BAG IV SCH (04:33)
[2019-08-10] MEDS: AMPICILLIN/SULBACT 3 GM in NA CHLORIDE 0.9% 100 ML IVPB SCH ×4 (05:57→23:36)
[2019-08-10] MEDS ORDERED: AMPICILLIN/SULBACTAM 3GM/VIAL ONE (05:58)
[2019-08-10] MEDS ORDERED: METHYLPREDNISOLONE 40 MG INJ ONE (07:21)
[2019-08-10] MEDS: METHYLPREDNISOLONE 125 MG INJ IV SCH ×4 (07:36→23:37)
--- NOTE | 2019-08-10 08:27 | P.HP ---
Certification for Inpatient Patient admitted to: Observation With expected LOS: <2 Midnights Patient will require the following post-hospital care: None Practitioner: I am a practitioner with admitting privileges, knowledge of patient current condition, hospital course, and medical plan of care. Services: Services provided to patient in accordance with Admission requirements found in Title 42 Section 412.3 of the Code of Federal Regulations Patient History Date of Service: 08/10/19 Reason for admission: Acute pharyngitis; obstructive sleep apnea; possible pneumonia History of Present Illness: Patient is a 34-year-old gentleman who comes into the hospital with difficulty breathing. Patient has been congested and has been coughing. Patient came into the ER for further evaluation. In the ER CT scan revealed patient had significant anterior cervical lymphadenopathy. Patient was given IV antibiotics and steroids. CT scan also suggested possible pneumonia. Patient also snores very heavily. The states this is how we does even before he was sick. Patient most likely has obstructive sleep apnea. He did go about 30 seconds without taking a breath. He will need outpatient sleep study. In the meantime will admit him to the hospital for IV antibiotics and IV steroids. Allergies No Known Allergies Allergy (Verified 08/10/19 03:20) Home Medications: NK [No Home Meds] 08/10/19 - Past Medical/Surgical History Has patient received pneumonia vaccine in the past: No Diabetic: Yes -: HTN -: DM Past Surgical History: Patient denies surgical history - Family History Father Family History: Reviewed- Non-Contributory - Social History Smoking Status: Smoker current status UNK Place of Residence: Home Review of Systems 10-point ROS is otherwise unremarkable Physical Examination - Vital Signs Temperature: 98 F Blood Pressure: 139/98 Pulse: 80 Respirations: 20 Pulse Ox (%): 90 - Physical Exam General: Alert, In no apparent distress, Oriented x3 HEENT: Atraumatic, PERRLA, Mucous membr. moist/pink, Other (Erythema and swelling of the high pharyngeal tonsils), EOMI, Sclerae nonicteric Neck: Supple, 2+ carotid pulse no bruit, Without JVD or thyroid abnormality, LAD (Anterior cervical lymphadenopathy) Respiratory: Clear to auscultation bilaterally, Normal air movement Cardiovascular: Regular rate/rhythm, Normal S1 S2, No murmurs Gastrointestinal: Normal bowel sounds, No tenderness Musculoskeletal: No clubbing, No swelling, No tenderness Integumentary: No rashes Neurological: Normal gait, Normal speech, Normal strength at 5/5 x4 extr, Normal tone, Sensation intact, Cranial nerves 3-12 intact, Normal affect Lymphatics: No axilla or inguinal lymphadenopathy - Studies Laboratory Data (last 24 hrs) 08/09/19 00:10: Sodium 140, Potassium 3.6, BUN 6 L, Creatinine 0.77, Glucose 150 H, Total Bilirubin 0.2, AST 17, ALT 36, Alkaline Phosphatase 83 08/09/19 00:10: WBC 7.2, Hgb 13.9, Hct 41.8, Plt Count 339 Microbiology Data (last 24 hrs): 08/09/19 22:54 Throat Group A Streptococcus Rapid Screen - Final Assessment & Plan - Problems (Diagnosis) (1) Acute suppurative pharyngitis Current Visit: Yes Status: Acute (2) Pneumonia Current Visit: Yes Status: Acute (3) Obstructive sleep apnea Current Visit: Yes Status: Acute - Plan 1. Continue with IV antibiotics 2. Awaiting culture results 3. ENT consult 4. O2 per protocol 5. Continue with gentle hydration 6. Repeat labs including CBC and renal function in a.m. 7. BiPAP as needed 8. GI and DVT prophylaxis Discharge Plan: Home Plan to discharge in: 48 Hours - Advance Directives Does patient have a Living Will: No Does patient have a Durable POA for Healthcare: No - Code Status/Comfort Care Code Status Assessed: Yes Code Status: Full Code Critical Care: No Time Spent Managing PTS Care (In Minutes): 45
--- NOTE | 2019-08-10 09:03 | RAD REPORT ---
EXAM DESCRIPTION: RAD - Chest Single View - 08/09/2019 11:57 pm CLINICAL HISTORY: Cough and congestion COMPARISON: None. TECHNIQUE: AP portable chest image was obtained 2346 hours . FINDINGS: No mass or consolidation. Perihilar markings are not outside of normal range. Minimal anny l infiltrate can still be present. Heart and vasculature are normal. No measurable pleural effusion a nd no pneumothorax. No acute bony abnormality seen. No acute aortic findings suspected. IMPRESSION: No focal consolidation to suspect bacterial pneumonia. Minimal prominence of the interstitial markings not outside of normal range. Mild viral infiltrate wo uld still be possible.
[2019-08-11] MEDS ORDERED: HYDRALAZINE HCL 20 MG/ML VIAL IV ONE (04:14)
[2019-08-11] MEDS: AMPICILLIN/SULBACT 3 GM in NA CHLORIDE 0.9% 100 ML IVPB SCH ×4 (05:14→23:34)
[2019-08-11] MEDS: METHYLPREDNISOLONE 125 MG INJ IV SCH ×4 (05:18→23:25)
[2019-08-11] MEDS: NA CHLORIDE 0.9% 1,000 ML IV SCH (05:40)
[2019-08-11] MEDS: METOPROLOL TAR 50 MG TAB PO SCH ×2 (06:32→17:42)
[2019-08-11] MEDS: Levofloxacin 750mg IV 750 MG/150 ML BAG IV SCH (06:32)
[2019-08-11] MEDS ORDERED: FUROSEMIDE 40 MG/4 ML VIAL IV ONE (06:37)
[2019-08-11] MEDS: SODIUM CHLORIDE 0.9% 10ML INJ IV SCH ×2 (09:44→21:14)
[2019-08-11 11:11] LABS: Urine Appearance CLEAR; Urine Bilirubin NEGATIVE (NEG); Urine Blood NEGATIVE (NEG); Urine Color YELLOW; Urine Glucose 3+ (NEG); Urine Protein NEGATIVE (NEG); Urine Specific Gravity 1.015 (1.005-1.030)
[2019-08-11 11:59] LABS: Urine Bacteria <20 /HPF (NONE SEEN); Urine Culture Reflex Order NOT NEEDED; Urine RBC NONE SEEN /HPF (NONE SEEN)
--- NOTE | 2019-08-11 13:40 | RAD REPORT ---
EXAM DESCRIPTION: CT - Soft Tissue Neck W/Contr - 08/10/2019 5:10 am CLINICAL HISTORY: The patient is 34 years old and is Male; PAIN airway closing TECHNIQUE: Axial computed tomography images of the neck with intravenous contrast. Sagittal and co radhames reformatted images were created and reviewed. This CT exam was performed using one or more of the following dose reduction techniques: automated exposure control, adjustment of the mA and/or k V according to patient size, and/or use of iterative reconstruction technique. COMPARISON: No relevant prior studies available. FINDINGS: NASOPHARYNX: There is prominence of the adenoids. OROPHARYNX: Prominence of the palatine tonsils and uvula is also present. There is no peritons illar abscess. HYPOPHARYNX: Unremarkable. LARYNX: Unremarkable. Normal epiglottis. TRACHEA: Unremarkable. RETROPHARYNGEAL SPACE: There is no retropharyngeal edema or fluid. SUBMANDIBULAR/PAROTID GLANDS: Unremarkable. Glands are normal in size. THYROID: Unremarkable. No enlarged or calcified nodules. BONES/JOINTS: No acute fracture. SOFT TISSUES: The soft tissues are normal. VASCULATURE: Unremarkable. Normal in course and caliber. LYMPH NODES: Unremarkable. No enlarged lymph nodes. LUNG APICES: Patchy groundglass opacity within the right upper lobe is present. IMPRESSION: 1. Prominence of the adenoids, palatine tonsils, and uvula causing narrowing of the na sopharynx. Some of the narrowing could be secondary to the patient's supine position. There is no ret ropharyngeal edema. The epiglottis is normal. 2. Subtle groundglass opacity within the right upper lobe which may be secondary to mild infectious versus inflammatory process. Electronically signed by: Phyllis Linder MD 08/10/2019 1:57 AM [facility] Due to temporary technical issues with the PACS/Fluency reporting system, reports are being signed by the in house radiologist as a courtesy to ensure prompt reporting. The interpreting radiologist is f ully responsible for the content of the report.
--- NOTE | 2019-08-11 14:23 | P.PN ---
Subjective Date of Service: 08/11/19 Chief Complaint: Acute pharyngitis; obstructive sleep apnea; possible pneumonia Subjective: No new changes, C/O voiced (still chest congestion and diff with breathing , worse this am compared to last pm) Review of Systems 10-point ROS is otherwise unremarkable Physical Examination - Vital Signs Temperature: 97.0 F Blood Pressure: 151/85 Pulse: 81 Respirations: 23 Pulse Ox (%): 93 - Physical Exam General: Alert, Oriented x3 HEENT: Atraumatic, Normocephalic Neck: Supple, Other (no obvious uvula swelling noted ) Respiratory: Crackles/rales (coarse wheeze upper airway) Gastrointestinal: Normal bowel sounds, Soft and benign Neurological: Normal gait, Normal speech - Studies Laboratory Last Values WBC 7.2 K/uL (4.3-10.9) 08/09/19 00:10 RBC 4.68 M/uL (4.33-5.43) 08/09/19 00:10 Hgb 13.9 g/dL (13.6-17.9) 08/09/19 00:10 Hct 41.8 % (39.6-49.0) 08/09/19 00:10 MCV 89.2 fL (80-100) 08/09/19 00:10 MCH 29.6 pg (27.0-35.0) 08/09/19 00:10 MCHC 33.2 g/dL (32.0-36.0) 08/09/19 00:10 RDW 14.1 % (12.1-15.2) 08/09/19 00:10 Plt Count 339 K/uL (152-406) 08/09/19 00:10 MPV 8.7 fL (7.6-11.3) 08/09/19 00:10 Neutrophils % 57.8 % (41.7-73.7) 08/09/19 00:10 Lymphocytes % 26.0 % (15.3-44.8) 08/09/19 00:10 Monocytes % 12.9 % (3.3-12.3) H 08/09/19 00:10 Eosinophils % 2.7 % (0-4.4) 08/09/19 00:10 Basophils % 0.6 % (0-1.3) 08/09/19 00:10 Absolute Neutrophils 4.2 K/uL (1.8-8.0) 08/09/19 00:10 Absolute Lymphocytes 1.9 K/uL (0.7-4.9) 08/09/19 00:10 Absolute Monocytes 0.9 K/uL (0.1-1.3) 08/09/19 00:10 Absolute Eosinophils 0.2 K/uL (0-0.5) 08/09/19 00:10 Absolute Basophils 0.0 K/uL (0-0.5) 08/09/19 00:10 Sodium 140 mmol/L (136-145) 08/09/19 00:10 Potassium 3.6 mmol/L (3.5-5.1) 08/09/19 00:10 Chloride 103 mmol/L (98-107) 08/09/19 00:10 Carbon Dioxide 28 mmol/L (21-32) 08/09/19 00:10 BUN 6 mg/dL (7-18) L 08/09/19 00:10 Creatinine 0.77 mg/dL (0.55-1.3) 08/09/19 00:10 Estimated GFR > 90 mL/min (=/>90) 08/09/19 00:10 Glucose 150 mg/dL (74-106) H 08/09/19 00:10 POC Glucose 198 mg/dl (65-120) H 08/10/19 09:10 Calcium 9.4 mg/dL (8.5-10.1) 08/09/19 00:10 Total Bilirubin 0.2 mg/dL (0.2-1.0) 08/09/19 00:10 AST 17 U/L (15-37) 08/09/19 00:10 ALT 36 U/L (12-78) 08/09/19 00:10 Alkaline Phosphatase 83 U/L (45-117) 08/09/19 00:10 Serum Total Protein 8.3 g/dL (6.4-8.2) H 08/09/19 00:10 Albumin 3.5 g/dL (3.4-5.0) 08/09/19 00:10 Globulin 4.8 g/dL (2.3-3.5) H 08/09/19 00:10 Albumin/Globulin Ratio 0.7 (1.1-1.8) L 08/09/19 00:10 Urine Color Yellow 08/11/19 10:53 Urine Appearance Clear 08/11/19 10:53 Urine pH 6.0 (5.0-7.0) 08/11/19 10:53 Ur Specific [place] 1.015 (1.005-1.030) 08/11/19 10:53 Urine Ketones Negative (NEG) 08/11/19 10:53 Urine Blood Negative (NEG) 08/11/19 10:53 Urine Nitrite Negative (NEG) 08/11/19 10:53 Urine Bilirubin Negative (NEG) 08/11/19 10:53 Urine Urobilinogen 1.0 mg/dL (0.2-1.0) 08/11/19 10:53 Ur Leukocyte Esterase Negative (NEG) 08/11/19 10:53 Urine RBC None seen /HPF (NONE SEEN) 08/11/19 10:53 Urine WBC <5 /HPF (<5) 08/11/19 10:53 Ur Squamous Epith Cells <5 /HPF (NONE SEEN) 08/11/19 10:53 Urine Bacteria <20 /HPF (NONE SEEN) 08/11/19 10:53 Urine Culture Reflexed Not needed 08/11/19 10:53 Urine Glucose 3+ (NEG) H 08/11/19 10:53 Urine Total Protein Negative (NEG) 08/11/19 10:53 Monoscreen Neg (NEG) 08/10/19 00:03 Microbiology Data (last 24 hrs): 08/09/19 22:54 Throat Culture & Sensitivity - Final NORMAL UPPER RESPIRATORY BRIE GROWN. Medications List Reviewed: Yes Assessment & Plan - Problems (Diagnosis) (1) Acute suppurative pharyngitis Current Visit: Yes Status: Acute (2) Obstructive sleep apnea Current Visit: Yes Status: Acute (3) Pneumonia Current Visit: Yes Status: Acute Physician Review: Patient Assessed, Agree with Above Assessment and Plan Physician Review Additional Text: # Upper airway Pharyngitis- c/w abx -await ENT eval - will obtain repeat CT today to monitor narrowing size if no ENT consult obtainable # Right Pneumonia- on abx , likamarilis due to aspiration from airway narrowisng # OBSA - non tolerant with Bipap machine here -c/w NC 02 -supposed to be on home cpap Critical Care: No
[2019-08-11] MEDS: ACETAMINOPHEN 500 MG TAB PO PRN (16:30)
[2019-08-11] MEDS: BENZONATATE 100 MG CAP PO PRN (18:26)
[2019-08-11] MEDS: GUAIFENESIN 600 MG SA TAB PO SCH (21:14)
[2019-08-11] MEDS: FAMOTIDINE 20 MG/2 ML VIAL IV SCH (21:14)
[2019-08-12] MEDS: METHYLPREDNISOLONE 125 MG INJ IV SCH ×4 (05:15→23:44)
[2019-08-12] MEDS: Levofloxacin 750mg IV 750 MG/150 ML BAG IV SCH (05:15)
[2019-08-12] MEDS: METOPROLOL TAR 50 MG TAB PO SCH ×2 (05:15→17:09)
[2019-08-12] MEDS: AMPICILLIN/SULBACT 3 GM in NA CHLORIDE 0.9% 100 ML IVPB SCH ×4 (05:19→23:44)
[2019-08-12] MEDS: BENZONATATE 100 MG CAP PO PRN (07:40)
[2019-08-12] MEDS: FAMOTIDINE 20 MG/2 ML VIAL IV SCH ×2 (08:19→21:43)
[2019-08-12] MEDS: GUAIFENESIN 600 MG SA TAB PO SCH (08:19)
[2019-08-12] MEDS: SODIUM CHLORIDE 0.9% 10ML INJ IV SCH ×2 (08:20→21:00)
[2019-08-12] MEDS: GUAIFENESIN/CODEINE 5ML UCUP PO PRN ×2 (11:27→21:43)
--- NOTE | 2019-08-12 18:51 | PN ---
Date of Progress Note: 08/12/2019 Subjective: Patient is still having difficulty breathing, requiring supplemental oxygen during the d aytime, on CPAP at night for his obstructive sleep apnea, having difficulty swallowing as well. [place] ent has significant amount of swelling. Case discussed with Dr. Ivey, ENT. Medications: List reviewed. Physical Examination: Vital Signs: Temperature 97, heart rate 50, blood pressure 148/74, respirations 16, O2 of 96% on nicki m air. General: Awake, alert, and oriented x3. Morbidly obese male, ill-appearing. HEENT: Normocephalic, atraumatic. PERRLA. EOMI. Moist mucous membranes. Tonsillar hypertrophy. Has significant secretions and erythema of the oropharynx. CV: S1, S2. Sinus bradycardia. Peripher al pulses present. Respiratory: Moving air well bilaterally. No wheezing or stridor. Gastrointestinal: Abdomen is soft, nontender, nondistended. Positive bowel sounds. Extremities: No clubbing, cyanosis, edema. Laboratory Data: Sputum culture, normal respiratory ángel. Group A strep screen is negative. Assessment: A 34-year-old male with: 1.Acute suppurative pharyngitis. Continue with antibiotics. ENT eval is pending. Patient is still having difficulty swallowing, has difficulty breathing and talking. Patient requiring supplemental oxygen during the daytime, is on CPAP at night due to his sleep apnea. 2.Pneumonia on the right side, likely due to aspiration. We will continue Unasyn. Follow up on eliseo villar. 3.Obstructive sleep apnea. We will continue CPAP at night. 4.Obesity. BMI 39.3. Plan: We will repeat labs in a.m., CBC, CMP. Discharge pending. ENT eval. SA/MODL Voice ID: [id number] Report ID: [id number]
[2019-08-12] MEDS: ACETAMINOPHEN 500 MG TAB PO PRN (21:48)
[2019-08-13] MEDS ORDERED: MELATONIN 3 MG TABLET PO PRN (01:40)
[2019-08-13] MEDS: AMPICILLIN/SULBACT 3 GM in NA CHLORIDE 0.9% 100 ML IVPB SCH ×2 (05:09→11:00)
[2019-08-13] MEDS: METOPROLOL TAR 50 MG TAB PO SCH (05:09)
[2019-08-13] MEDS: METHYLPREDNISOLONE 125 MG INJ IV SCH ×2 (05:10→11:27)
[2019-08-13 06:02] LABS: Absolute Lymphocytes (CBC) 0.7 K/uL (0.7-4.9); Basophils % 0.2 % (0-1.3); Hematocrit 42.6 % (39.6-49.0); Lymphocytes % 4.6 % (15.3-44.8); MPV 8.7 fL (7.6-11.3); RBC Red Blood Cell Count 4.64 M/uL (4.33-5.43)
[2019-08-13 06:25] LABS: Potassium 3.9 mmol/L (3.5-5.1)
[2019-08-13 07:08] LABS: Blood Morphology Comment NOT SEEN (NOT SEEN); Platelet Estimate ADEQ
[2019-08-13] MEDS: FAMOTIDINE 20 MG/2 ML VIAL IV SCH (08:27)
[2019-08-13] MEDS: SODIUM CHLORIDE 0.9% 10ML INJ IV SCH (08:28)
[2019-08-13] MEDS: BENZONATATE 100 MG CAP PO PRN (08:37)
[2019-08-13 11:16] VITALS: O2SAT 95
--- NOTE | 2019-08-13 12:06 | P.CNS ---
Date of Consult: 08/13/19 Chief Complaint: Sleep apnea History of Present Illness: Patient is 34 years of age admitted with acute onset of upper respiratory tract symptoms with cough congestion shortness of breath and a so throat patient has a history of sleep apnea non compliant with his CPAP lost his supplies is never had a sleep study done he perked is a CPAP machine very symptomatic excessive daytime somnolence snoring apneic spells shortness of breath has improved Allergies No Known Allergies Allergy (Verified 08/10/19 03:20) Home Medications: Azithromycin Tab [Zithromax*] 250 mg PO DAILY #5 tab 08/13/19 Benzonatate [Tessalon Perle*] 200 mg PO TID PRN #30 cap 08/13/19 Lisinopril [Zestril] 10 mg PO DAILY #30 tablet 08/13/19 Metformin HCl [Glucophage] 500 mg PO BID #60 tablet 08/13/19 Methylprednisolone [Medrol dosepack] 4 mg PO DIRECTED #1 drake 08/13/19 Metoprolol Tartrate [Lopressor*] 50 mg PO BID 6AM 6PM #60 tab 08/13/19 - Past Medical/Surgical History Diabetic: Yes -: HTN -: DM - Family History Father Family History: Reviewed- Non-Contributory - Social History Smoking Status: Current every day smoker Place of Residence: Home Review of Systems General: Weakness ENT: Throat Pain Respiratory: Cough, Shortness of Breath Physical Examination Temp Pulse Resp BP Pulse Ox 96.9 F 42 L 17 169/96 H 93 08/13/19 08:00 08/13/19 08:00 08/13/19 08:00 08/13/19 08:00 08/13/19 08:00 General: Alert, In no apparent distress, Oriented x3 HEENT: Atraumatic Neck: Supple Respiratory: Clear to auscultation bilaterally Cardiovascular: No edema, Regular rate/rhythm Gastrointestinal: Normal bowel sounds, Soft and benign - Problems (1) Obstructive sleep apnea Current Visit: Yes Status: Acute Plan: Patient is 34 years of age with a history of obstructive sleep apnea never had a sleep study patient per chooses CPAP machine has been using it no supplies non compliant very symptomatic with Az to follow up with me only to adjust his machine is pressure and do a sleep study patient has presumed viral infection is doing better can be discharged home on Zithromax patient got some steroids and antibiotics probably the reason tucker white count is elevated oxygenation satisfactory chest x-ray clear patient is an active smoker advice to quit no prior history of obstructive airways disease denies any baseline dyspnea can't take home his BiPAP supplies from the hospital instructed to follow up with me in 1 or 2 weeks
[2019-08-13 12:07] VITALS: TEMP 97.2
[2019-08-13 12:37] VITALS: BP 150/89
--- NOTE | 2019-08-13 21:49 | DS ---
Date of Discharge: 08/13/2019 Consultants: 1.Dr. Smith with Pulmonology. 2.Dr. Ivey with ENT. Procedures: None. Admitting Diagnoses: 1.Acute suppurative pharyngitis. 2.Pneumonia. 3.Obstructive sleep apnea. Discharge Diagnoses: 1.Acute suppurative pharyngitis. 2.Thrush. 3.Right-sided pneumonia, possibly aspiration type. 4.Obstructive sleep apnea. 5.Obesity, BMI 39.3. 6.Essential hypertension, not well controlled. 7.Recently diagnosed diabetes mellitus type 2, [id number] with hypoglycemia. Hospital Course: Patient is a 34-year-old male with a past medical history of recently diagnosed hyp ertension, diabetes, has not really started his medications, comes in with acute pharyngitis and pneu monia. Patient was started on IV antibiotics, steroids. CT scan of the neck was done, which showed prominence of the adenoids, palatine, tonsils, and uvula causing narrowing of the nasopharynx. No re tropharyngeal edema. Epiglottis normal. Subtle ground-glass opacity within the right upper lobe, wh ich may be secondary to mild infectious versus inflammatory process. Patient was seen by ENT and Pul monology. There is no surgical intervention from the ENT standpoint. Patient did have some thrush, not a risk for HIV. Patient is diabetic. His blood sugar levels are elevated. He was also given st eroids due to the inflammation. His mono screen and strep screen were negative. Throat culture grew out normal respiratory ángel. His breathing improved. He was requiring supplemental oxygen during the daytime due to his difficulty breathing. He also had difficulty swallowing and dysphonia. Patie nt responded well to treatment and his symptoms improved. Inflammation was still present, but was tr ending down. Patient was then recommended to be discharged on azithromycin. Followup: He will need to follow up with his primary care physician in 2-3 days. Follow up with his ENT, Dr. Ivey in 2-4 weeks. Follow up with special services supervisor, Dr. Smith in 2 weeks. Return to ER for worsening condition. Diet: Diabetic. Activity: As tolerated. Medications: As per medication reconciliation list. Physical Examination: General: Awake, alert, and oriented x3. Morbidly obese male. CV: S1, S2. Respiratory: Moving air well bilaterally. Abdomen: Abdomen is soft, nontender, nondistended. Oropharynx: The patient has mild erythema and tonsillar hypertrophy. No drooling. GI: Abdomen is soft, nontender, nondistended. Positive bowel sounds. Extremities: No clubbing, cyanosis, or edema. Neurologic: Nonfocal. Total time spent discharging the patient was 45 minutes. /MONAE Voice ID: [id number] Report ID: [id number]
--- NOTE | 2019-08-15 07:59 | P.CNS ---
Date of Consult: 08/13/19 Consultation for large tonsils. Patient was admitted for SOB. Patient's chart is reviewed and he is seen and examined and noted to have white patches in the oropharynx without significant enlargement of the tonsils. Recommended treatment for thrush and FU with me as an outpatient.
== END 2019-08-13 13:00 | disposition home or self-care (01) | DRG 178 ==
LOC: ER 22:31 → ERHOLD 08-10 02:35 → 4TH 08-10 12:58 → OBSVTOIN 08-12 15:51
PROVIDERS: ADMIT Hospitalist; ATTEND Family Medicine
DX: J69.0 Pneumonitis due to inhalation of food and vomit (principal); B37.0 Candidal stomatitis; J02.9 Acute pharyngitis, unspecified; I10 Essential (primary) hypertension; E11.649 Type 2 diabetes mellitus with hypoglycemia without coma; G47.33 Obstructive sleep apnea (adult) (pediatric); E66.9 Obesity, unspecified; Z68.39 Body mass index [BMI] 39.0-39.9, adult
CPT/HCPCS: 36415; 70491; 71045; 80048; 80053; 81001; 82947; 85025; 86308; 87070; 87081; 94640; 94660; 94760; 96365; 96366; 96368; 96375; 99285; G0378; J0295; J0360; J0696; J1100; J1940; J2405; J2920; J2930; J7030; Q9967

== ENCOUNTER 2019-11-05 12:50 | Emergency (ER) | payer BC ==
--- NOTE | 2019-11-05 13:34 | EDPHYS ---
Physician Documentation [facility] Name: Bucky Norton Age: 34 yrs Sex: Male : 1985 Arrival Date: 11/05/2019 Time: 12:53 Bed 20 Private MD: ED Physician Mayo Huffman HPI: 11/04 13:19 This 34 yrs old Black Male presents to ER via Ambulatory with complaints of Knee ps1 swelling. 13:19 Patient has recurrent knee pain and swelling. Worse today because he fell on it ps1 yesterday. Able to bear weight. Was seen and evaluated by PCP for same complaint. States that he has not had referral to ortho. No fever. . Historical: - Allergies: 13:05 No Known Allergies; ll1 - PMHx: 13:05 Hypertension; Diabetes - NIDDM; ll1 - PSHx: 13:05 None; ll1 - Social history:: Smoking status: Patient reports the use of cigarette tobacco products, smokes one pack cigarettes per day. Patient uses alcohol, on a daily basis. admits to "couple of beers" a day. Patient/guardian denies using street drugs. ROS: 13:19 Constitutional: Negative for fever, chills, and weight loss, Eyes: Negative for injury, ps1 pain, redness, and discharge, Cardiovascular: Negative for chest pain, palpitations, and edema, Respiratory: Negative for shortness of breath, cough, wheezing, and pleuritic chest pain, Abdomen/GI: Negative for abdominal pain, nausea, vomiting, diarrhea, and constipation, Back: Negative for injury and pain, Skin: Negative for injury, rash, and discoloration. 13:19 MS/extremity: Positive for pain, swelling, of the right knee. Exam: 13:19 Constitutional: This is a well developed, well nourished patient who is awake, alert, ps1 and in no acute distress. Head/Face: Normocephalic, atraumatic. Eyes: Pupils equal round and reactive to light, extra-ocular motions intact. Lids and lashes normal. Conjunctiva and sclera are non-icteric and not injected. 13:19 Chest/axilla: Inspection: normal. 13:19 Cardiovascular: Rate: normal. 13:19 Respiratory: the patient does not display signs of respiratory distress, Respirations: normal. 13:19 Musculoskeletal/extremity: Extremities: grossly normal except: noted in the right knee: swelling. Vital Signs: 13:03 BP 162 / 97; Pulse 94; Resp 17; Temp 97.8; Pulse Ox 98% ; Pain 6/10; ll1 MDM: 13:19 Data reviewed: vital signs, nurses notes, and as a result, I will discharge patient. ps1 Counseling: I had a detailed discussion with the patient and/or guardian regarding: the historical points, exam findings, and any diagnostic results supporting the discharge/admit diagnosis, the need for outpatient follow up, a orthopedic surgeon, to return to the emergency department if symptoms worsen or persist or if there are any questions or concerns that arise at home. 13:33 Patient medically screened. ps1 11/04 13:26 Order name: Glucose, Ancillary Testing; Complete Time: 13:34 EDMS Administered Medications: No medications were administered Disposition: 11/05/19 13:33 Discharged to Home. Impression: Effusion, right knee. - Condition is Stable. - Discharge Instructions: Knee Effusion, [id number]. - Prescriptions for Anaprox DS 550 mg Oral Tablet - take 1 tablet by ORAL route every 12 hours As needed; 20 tablet. Robaxin 500 mg Oral Tablet - take 2 tablet by ORAL route every 6 hours As needed; 40 tablet. Medrol (Medhat) 4 mg Oral Tablets, Dose Pack - take 1 tablet by ORAL route as directed - follow package instructions; 1 packet. Metformin 850 mg Oral Tablet - take 1 tablet by ORAL route 2 times per day with morning and evening meals; 20 tablet. - Work release form, Medication Reconciliation Form, Thank You Letter, Antibiotic Education, Prescription Opioid Use form. - Follow up: Miguelito Porras MD; When: 1 - 2 days; Reason: Further diagnostic work-up, Recheck today's complaints, Continuance of care. - Problem is an acute exacerbation. - Symptoms are unchanged. Signatures: Dispatcher [employer] EDNJ Mayo Huffman MD MD ps1 Sydnie Birmingham RN RN Rosanna Rodriguez RN RN ll1 Corrections: (The following items were deleted from the chart) 13:44 13:33 11/05/2019 13:33 Discharged to Home. Impression: Effusion, right knee. Condition ah is Stable. Forms are Medication Reconciliation Form, Thank You Letter, Antibiotic Education, Prescription Opioid Use. Follow up: Miguelito Porras; When: 1 - 2 days; Reason: Further diagnostic work-up, Recheck today's complaints, Continuance of care. Problem is an acute exacerbation. Symptoms are unchanged. ps1
--- NOTE | 2019-11-05 13:34 | ER ---
Nurse's Notes [facility] Name: Bucky Norton Age: 34 yrs Sex: Male : 1985 Arrival Date: 11/05/2019 Time: 12:53 Bed 20 Private MD: Diagnosis: Effusion, right knee Presentation: 11/04 13:03 Chief complaint: Patient states: Right knee pain and swelling for a few days. No ll1 specific injury or trauma. Coronavirus screen: Proceed with normal triage. Patient denies a cough. Patient denies shortness of breath or difficulty breathing. Patient denies measured and/or subjective temperature greater than 100.4F prior to today's visit. Patient denies travel on a cruise ship or to a country the [facility] currently lists as an affected area. Patient denies contact with known and/or suspected case of COVID-19. Ebola Screen: Patient denies travel to an Ebola-affected area in the 21 days before illness onset. Initial Sepsis Screen: Does the patient meet any 2 criteria? No. Patient's initial sepsis screen is negative. Initial Sepsis Screen: Does the patient meet any 2 criteria? HR > 90 bpm. Risk Assessment: Do you want to hurt yourself or someone else? Patient reports no desire to harm self or others. Onset of symptoms was November 02, 2019. 13:03 Method Of Arrival: Ambulatory ll1 13:03 Acuity: RICHY 4 ll1 13:44 Initial Sepsis Screen: Does the patient have a suspected source of infection? No. ah Patient's initial sepsis screen is negative. Historical: - Allergies: 13:05 No Known Allergies; ll1 - PMHx: 13:05 Hypertension; Diabetes - NIDDM; ll1 - PSHx: 13:05 None; ll1 - Social history:: Smoking status: Patient reports the use of cigarette tobacco products, smokes one pack cigarettes per day. Patient uses alcohol, on a daily basis. admits to "couple of beers" a day. Patient/guardian denies using street drugs. Screenin:43 Abuse screen: Denies threats or abuse. Nutritional screening: No deficits noted. Tuberculosis screening: No symptoms or risk factors identified. Fall Risk None identified. Assessment: 13:07 General: Appears in no apparent distress. Behavior is calm, cooperative. Pain: Complains of pain in right knee Pain radiates to right hip Pain currently is 6 out of 10 on a pain scale. Quality of pain is described as aching, Pain began 1-2 weeks ago Noted to be Also complains of swelling. Neuro: Level of Consciousness is awake, Oriented to person, place, time, situation. Cardiovascular: Heart tones S1 S2 present Capillary refill < 3 seconds Patient's skin is warm and dry. Respiratory: Airway is patent Respiratory effort is even, unlabored, Respiratory pattern is regular, symmetrical, Breath sounds are clear. GI: No signs and/or symptoms were reported involving the gastrointestinal system. : No deficits noted. No signs and/or symptoms were reported regarding the genitourinary system. EENT: No signs and/or symptoms were reported regarding the EENT system. Derm: No signs and/or symptoms reported regarding the dermatologic system. Musculoskeletal: Circulation, motion, and sensation intact. Range of motion: limited in right knee Swelling present in right knee Reports pops when he bends knee. Injury Description: denies. Vital Signs: 13:03 BP 162 / 97; Pulse 94; Resp 17; Temp 97.8; Pulse Ox 98% ; Pain 6/10; ll1 ED Course: 12:53 Patient arrived in ED. mr 13:04 Triage completed. ll1 13:05 Arm band placed on Patient placed in an exam room, on a stretcher. 1 13:06 Mayo Huffman MD is Attending Physician. ps1 13:07 Sydnie Birmingham, RN is Primary Nurse. 13:32 Miguelito Porras MD is Referral Physician. [facility] 13:43 No provider procedures requiring assistance completed. Patient did not have IV access ah during this emergency room visit. 13:44 Patient has correct armband on for positive identification. Placed in gown. Bed in low ah position. Administered Medications: No medications were administered Outcome: 13:33 Discharge ordered by . ps1 13:42 Discharged to home ambulatory. 13:42 Condition: good 13:42 Discharge instructions given to patient, Instructed on discharge instructions, follow up and referral plans. no drinking with medication, medication usage, Demonstrated understanding of instructions, follow-up care, medications, Prescriptions given X 4. 13:44 Patient left the ED. Signatures: Joy Pollard mr Mayo Huffman MD MD ps1 Sydnie Birmingham RN RN Earl, Lynsay, RN RN ll1
[2019-11-05 13:50] VITALS: BP 162/97; TEMP 97.8; O2SAT 98
== END 2019-11-05 13:44 | disposition home or self-care (01) ==
LOC: ER 12:50
DX: M25.461 Effusion, right knee (principal); E11.9 Type 2 diabetes mellitus without complications; I10 Essential (primary) hypertension; Z79.84 Long term (current) use of oral hypoglycemic drugs; Z79.899 Other long term (current) drug therapy; Z91.81 History of falling
CPT/HCPCS: 82947; 99282

== ENCOUNTER 2019-12-11 17:50 | Emergency (ER) | payer BC ==
[2019-12-11 18:34] LABS: Absolute Lymphocytes (CBC) 2.1 K/uL (0.7-4.9); Basophils % 0.9 % (0-1.3); Hematocrit 47.3 % (39.6-49.0); Lymphocytes % 33.2 % (15.3-44.8); MPV 8.7 fL (7.6-11.3); RBC Red Blood Cell Count 5.22 M/uL (4.33-5.43)
[2019-12-11] MEDS ORDERED: Ringers Lactate 1,000 ML IV ONE (18:48)
[2019-12-11 19:20] LABS: ALT/SGPT 40 U/L (12-78); Alkaline Phosphatase 64 U/L (45-117); BUN Blood Urea Nitrogen 16 mg/dL (7-18); Bicarbonate 27 mmol/L (21-32); Bilirubin Direct < 0.1 mg/dL (0-0.2); Glucose Level 173 mg/dL (74-106); Protein, Total 7.7 g/dL (6.4-8.2); Sodium Level 140 mmol/L (136-145)
[2019-12-11 19:21] LABS: Albumin 3.6 g/dL (3.4-5.0); Creatine Phosphokinase 221 U/L (39-308)
[2019-12-11 19:25] LABS: AST/SGOT 23 U/L (15-37)
[2019-12-11 19:26] LABS: Bilirubin Total < 0.1 mg/dL (0.2-1.0)
--- NOTE | 2019-12-11 20:22 | EDPHYS ---
Physician Documentation [facility] Name: Bucky Norton Age: 34 yrs Sex: Male : 1985 Arrival Date: 12/11/2019 Time: 17:52 Bed 20 Private MD: ED Physician Joni Watts HPI: 12/10 20:04 This 34 yrs old Black Male presents to ER via Ambulatory with complaints of General jr8 Weakness. 20:04 Patient stated that he was working hard outside yesterday. Got overheated and vomited jr8 once. Went inside and rested. Today feels very drained and fatigued. Sore all over. Denies anymore vomiting. Severity of symptoms: At their worst the symptoms were moderate in the emergency department the symptoms are unchanged. The patient has not experienced similar symptoms in the past. The patient has not recently seen a physician. Historical: - Allergies: 18:04 No Known Allergies; jl7 - Home Meds: 18:04 unknown DM pill [Active]; Unknown htn medication [Active]; jl7 - PMHx: 18:04 Diabetes - NIDDM; Hypertension; jl7 - PSHx: 18:04 None; jl7 - Immunization history:: Adult Immunizations not up to date. - Social history:: Smoking status: Patient reports the use of cigarette tobacco products, smokes one pack cigarettes per day. ROS: 20:04 Eyes: Negative for injury, pain, redness, and discharge, ENT: Negative for injury, jr8 pain, and discharge, Neck: Negative for injury, pain, and swelling, Cardiovascular: Negative for chest pain, palpitations, and edema, Respiratory: Negative for shortness of breath, cough, wheezing, and pleuritic chest pain, Back: Negative for injury and pain, MS/Extremity: Negative for injury and deformity, Skin: Negative for injury, rash, and discoloration, Neuro: Negative for headache, weakness, numbness, tingling, and seizure. 20:04 Constitutional: Positive for body aches, fatigue. 20:04 Abdomen/GI: Positive for nausea and vomiting, Negative for abdominal pain, diarrhea, constipation, abdominal cramps, abdominal distension. Exam: 20:04 Eyes: Pupils equal round and reactive to light, extra-ocular motions intact. Lids and jr8 lashes normal. Conjunctiva and sclera are non-icteric and not injected. Cornea within normal limits. Periorbital areas with no swelling, redness, or edema. ENT: Nares patent. No nasal discharge, no septal abnormalities noted. Tympanic membranes are normal and external auditory canals are clear. Oropharynx with no redness, swelling, or masses, exudates, or evidence of obstruction, uvula midline. Mucous membranes moist. Neck: Trachea midline, no thyromegaly or masses palpated, and no cervical lymphadenopathy. Supple, full range of motion without nuchal rigidity, or vertebral point tenderness. No Meningismus. Cardiovascular: Regular rate and rhythm with a normal S1 and S2. No gallops, murmurs, or rubs. Normal PMI, no JVD. No pulse deficits. Respiratory: Lungs have equal breath sounds bilaterally, clear to auscultation and percussion. No rales, rhonchi or wheezes noted. No increased work of breathing, no retractions or nasal flaring. Abdomen/GI: Soft, non-tender, with normal bowel sounds. No distension or tympany. No guarding or rebound. No evidence of tenderness throughout. Back: No spinal tenderness. No costovertebral tenderness. Full range of motion. Skin: Warm, dry with normal turgor. Normal color with no rashes, no lesions, and no evidence of cellulitis. MS/ Extremity: Pulses equal, no cyanosis. Neurovascular intact. Full, normal range of motion. Neuro: Awake and alert, GCS 15, oriented to person, place, time, and situation. Cranial nerves II-XII grossly intact. Motor strength 5/5 in all extremities. Sensory grossly intact. Cerebellar exam normal. Normal gait. Vital Signs: 18:00 BP 160 / 84; Pulse 99; Resp 19 S; Temp 99.5(O); Pulse Ox 96% on R/A; Weight 127.[address] [facility] (R); Height 6 ft. 0 in. (182.88 cm) (R); Pain 0/10; 18:09 BP 148 / 87; Pulse 97; Resp 18; Pulse Ox 96% ; ah 19:00 BP 147 / 78; Pulse 94; Resp 18; Pulse Ox 96% ; ah 20:00 BP 145 / 96; Pulse 80; Resp 18; Pulse Ox 99% ; ah 18:00 Body Mass Index 37.97 (127.01 kg, 182.88 cm) [facility] MDM: 18:12 Patient medically screened. jr8 20:19 Data reviewed: vital signs, nurses notes, lab test result(s), and as a result, I will jr8 discharge patient. Data interpreted: Pulse oximetry: on room air is 99 %. Interpretation: normal. Counseling: I had a detailed discussion with the patient and/or guardian regarding: the historical points, exam findings, and any diagnostic results supporting the discharge/admit diagnosis, lab results, the need for outpatient follow up, a family practitioner, to return to the emergency department if symptoms worsen or persist or if there are any questions or concerns that arise at home. Response to treatment: the patient's symptoms have markedly improved after treatment, patient is well hydrated. ED course: No signs of rhabdo. No other acute findings noted . 12/10 18:11 Order name: CBC with Diff; Complete Time: 20:05 [facility] 12/10 18:11 Order name: Basic Metabolic Panel; Complete Time: 20:05 [facility] 12/10 18:11 Order name: LFT's; Complete Time: 20:05 [facility] 12/10 18:11 Order name: CK; Complete Time: 20:05 [facility] 12/10 18:38 Order name: Glucose, Ancillary Testing; Complete Time: 20:05 [facility] 12/10 18:11 Order name: IV; Complete Time: 18:39 [facility] 12/10 18:12 Order name: Glucose Level; Complete Time: 18:39 [facility] 12/10 18:41 Order name: Labs - recollect needed: light green tube needs recollected.; Complete tt3 Time: 19:49 Administered Medications: 18:44 Drug: Ringers - Lactated Ringers Solution 1000 ml Route: IV; Rate: bolus; Site: left forearm; 20:43 Follow up: Response: No adverse reaction; IV Status: Completed infusion 21:58 Follow up: Response: No adverse reaction; IV Status: Completed infusion Disposition: 12/11 12:33 Co-signature as Attending Physician, Joni Watts MD I agree with the assessment and kdr plan of care. Disposition: 12/11/19 20:20 Discharged to Home. Impression: Dehydration. - Condition is Stable. - Discharge Instructions: Dehydration, Adult. - Medication Reconciliation Form, Thank You Letter, Antibiotic Education, Prescription Opioid Use, Work release form form. - Follow up: Private Physician; When: As needed; Reason: Recheck today's complaints, Continuance of care, Re-evaluation by your physician. - Problem is new. - Symptoms have improved. Signatures: Dispatcher [employer] EDMiguelito Nix, RN RN Joni Osuna MD MD kdr Roszak, Josh, PA PA jr8 Ruddy Moore RN RN jl7 Sydnie Birmingham RN JULIA Andres, Lenny tt3 Corrections: (The following items were deleted from the chart) 12/10 20:53 20:20 12/11/2019 20:20 Discharged to Home. Impression: Dehydration. Condition is sg Stable. Forms are Medication Reconciliation Form, Thank You Letter, Antibiotic Education, Prescription Opioid Use. Follow up: Private Physician; When: As needed; Reason: Recheck today's complaints, Continuance of care, Re-evaluation by your physician. Problem is new. Symptoms have improved. jr8
--- NOTE | 2019-12-11 20:22 | ER ---
Nurse's Notes [facility] Name: Bucky Norton Age: 34 yrs Sex: Male : 1985 Arrival Date: 12/11/2019 Time: 17:52 Bed 20 Private MD: Diagnosis: Dehydration Presentation: 12/10 18:00 Chief complaint: Patient states: "I think I got over-heated yesterday and started jl7 vomiting and they sent me home from work." Pt denies N/V/D today but woke this morning and feels drained and fatigued. Coronavirus screen: Surgical mask placed on patient. Patient moved to private room, placed in contact and droplet isolation with eye protection until further assessment. Patient denies a cough. Patient denies shortness of breath or difficulty breathing. Patient denies measured and/or subjective temperature greater than 100.4F prior to today's visit. Patient denies travel on a cruise ship or to a country the [facility] currently lists as an affected area. Patient denies contact with known and/or suspected case of COVID-19. Ebola Screen: No symptoms or risks identified at this time. Initial Sepsis Screen: Does the patient meet any 2 criteria? HR > 90 bpm. No. Patient's initial sepsis screen is negative. Does the patient have a suspected source of infection? No. Patient's initial sepsis screen is negative. Risk Assessment: Do you want to hurt yourself or someone else? Patient reports no desire to harm self or others. Onset of symptoms was December 10, 2019. Care prior to arrival: None. 18:00 Method Of Arrival: Ambulatory jl7 18:00 Acuity: RICHY 3 jl7 Triage Assessment: 18:04 General: Appears in no apparent distress. uncomfortable, Behavior is calm, cooperative, jl7 appropriate for age. Pain: Denies pain. Neuro: Level of Consciousness is awake, alert, obeys commands, Oriented to person, place, time, situation. Cardiovascular: Patient's skin is warm and dry. Respiratory: Airway is patent Respiratory effort is even, unlabored, Respiratory pattern is regular, symmetrical. GI: Patient currently denies diarrhea, nausea, vomiting. Derm: Skin is dry, Skin is normal, Skin temperature is warm. Historical: - Allergies: 18:04 No Known Allergies; jl7 - Home Meds: 18:04 unknown DM pill [Active]; Unknown htn medication [Active]; 7 - PMHx: 18:04 Diabetes - NIDDM; Hypertension; jl7 - PSHx: 18:04 None; jl - Immunization history:: Adult Immunizations not up to date. - Social history:: Smoking status: Patient reports the use of cigarette tobacco products, smokes one pack cigarettes per day. Screenin:53 Abuse screen: Denies threats or abuse. Nutritional screening: No deficits noted. ah Tuberculosis screening: No symptoms or risk factors identified. Fall Risk None identified. Assessment: 18:20 General: Appears ill, Behavior is calm, cooperative. Pain: Denies pain. Neuro: Level of ah Consciousness is awake, alert, Oriented to person, place, time, situation. Cardiovascular: Heart tones S1 S2 present Capillary refill < 3 seconds Patient's skin is warm and dry. Respiratory: Airway is patent Respiratory effort is even, unlabored, Respiratory pattern is regular, symmetrical. GI: Abdomen is obese, Bowel sounds present X 4 quads. Reports nausea, vomiting, yesterday, none today. : No signs and/or symptoms were reported regarding the genitourinary system. EENT: No signs and/or symptoms were reported regarding the EENT system. Derm: No signs and/or symptoms reported regarding the dermatologic system. Musculoskeletal: Reports weakness in generalized. 19:20 Reassessment: Patient and/or family updated on plan of care and expected duration. Pain ah level reassessed. Patient is alert, oriented x 3, equal unlabored respirations, skin warm/dry/pink. awaiting resutls. Vital Signs: 18:00 BP 160 / 84; Pulse 99; Resp 19 S; Temp 99.5(O); Pulse Ox 96% on R/A; Weight 127.01 kg [facility] (R); Height 6 ft. 0 in. (182.88 cm) (R); Pain 0/10; 18:09 BP 148 / 87; Pulse 97; Resp 18; Pulse Ox 96% ; ah 19:00 BP 147 / 78; Pulse 94; Resp 18; Pulse Ox 96% ; ah 20:00 BP 145 / 96; Pulse 80; Resp 18; Pulse Ox 99% ; ah 18:00 Body Mass Index 37.97 (127.01 kg, 182.88 cm) [facility] ED Course: 17:52 Patient arrived in ED. ag5 18:03 Triage completed. jl7 18:04 Arm band placed on right wrist. jl7 18:11 Nikhil Barone PA is PHCP. jr8 18:11 Joni Watts MD is Attending Physician. jr8 18:13 Sydnie Birmingham, RN is Primary Nurse. 18:20 Missed attempt(s): 20 gauge in right antecubital area. Bleeding controlled, band aid ah applied, catheter tip intact. 18:22 Inserted saline lock: 22 gauge in left forearm, using aseptic technique. 18:52 Patient has correct armband on for positive identification. Placed in gown. Bed in low ah position. Call light in reach. 20:30 No provider procedures requiring assistance completed. IV discontinued, intact, ah bleeding controlled, No redness/swelling at site. Pressure dressing applied. Administered Medications: 18:44 Drug: Ringers - Lactated Ringers Solution 1000 ml Route: IV; Rate: bolus; Site: left ah forearm; 20:43 Follow up: Response: No adverse reaction; IV Status: Completed infusion 21:58 Follow up: Response: No adverse reaction; IV Status: Completed infusion Outcome: 20:20 Discharge ordered by . jrSofia 20:30 Discharged to home ambulatory. 20:30 Condition: good 20:30 Discharge instructions given to patient, Instructed on discharge instructions, follow up and referral plans. Demonstrated understanding of instructions, follow-up care. 20:53 Patient left the ED. sg Signatures: Miguelito Salmon RN Nikhil Zhang PA PA [facility] Ruddy Moore RN RN [facility] Mark Ordonez [facility] Sydnie Birmingham RN RN
[2019-12-11 21:02] VITALS: TEMP 99.5
[2019-12-11 21:07] VITALS: BP 145/96; O2SAT 99
== END 2019-12-11 20:53 | disposition home or self-care (01) ==
LOC: ER 17:50
DX: E86.0 Dehydration (principal); E11.9 Type 2 diabetes mellitus without complications; I10 Essential (primary) hypertension; F17.210 Nicotine dependence, cigarettes, uncomplicated
CPT/HCPCS: 96365; 85025; 80048; 36415; 82550; 82947; 80076; 99283; 96366; J7120

== ENCOUNTER 2019-12-31 06:58 | Emergency (ER) | payer BC ==
--- NOTE | 2019-12-31 07:56 | ER ---
Nurse's Notes [facility] Name: Bucky Norton Age: 34 yrs Sex: Male : 1985 Arrival Date: 12/31/2019 Time: 07:00 Bed 5 Private MD: Hector Gutierrez E Diagnosis: Sprain of ankle Presentation: 12/30 07:10 Chief complaint: Patient states: Reports he got out of his truck yesterday and rolled ea his left ankle. Pt reports work would not let him back unless he was seen. Coronavirus screen: Proceed with normal triage. Ebola Screen: No symptoms or risks identified at this time. Initial Sepsis Screen: Does the patient meet any 2 criteria? No. Patient's initial sepsis screen is negative. Does the patient have a suspected source of infection? No. Patient's initial sepsis screen is negative. Risk Assessment: Do you want to hurt yourself or someone else? Patient reports no desire to harm self or others. Onset of symptoms was December 31, 2019. 07:10 Method Of Arrival: Ambulatory ea 07:10 Acuity: RICHY 3 ea Triage Assessment: 07:12 General: Appears in no apparent distress. Behavior is appropriate for age. Pain: ea Complains of pain in left ankle. Musculoskeletal: Reports pain in left ankle. Historical: - Allergies: 07:09 No Known Allergies; ph - PMHx: 07:09 Diabetes - NIDDM; Hypertension; ph - PSHx: 07:09 None; ph - Immunization history:: Adult Immunizations up to date. - Social history:: Smoking status: unknown. Screenin:08 Abuse screen: Denies threats or abuse. Denies injuries from another. Nutritional ph screening: No deficits noted. Tuberculosis screening: No symptoms or risk factors identified. Fall Risk None identified. Assessment: 07:36 General: Appears in no apparent distress. comfortable, well groomed, Behavior is calm, ph cooperative, appropriate for age. Pain: Complains of pain in left lateral ankle. Neuro: Level of Consciousness is awake, alert, obeys commands, Oriented to person, place, time, situation. Cardiovascular: Capillary refill < 3 seconds in bilateral fingers Patient's skin is warm and dry. Pulses are palpable in right dorsalis pedis artery and left dorsalis pedis artery. Respiratory: Airway is patent Respiratory effort is even, unlabored. Derm: Skin is intact, is healthy with good turgor, Skin is pink, warm \T\ dry. Musculoskeletal: Circulation, motion, and sensation intact. Range of motion: intact in all extremities. Vital Signs: 07:09 BP 151 / 99; Pulse 93; Resp 18; Temp 98.1; Pulse Ox 99% on R/A; ph 07:10 Weight 127.01 kg; Height 6 ft. 2 in. (187.96 cm); ea 07:10 Body Mass Index 35.95 (127.01 kg, 187.96 cm) ED Course: 07:00 Patient arrived in ED. es 07:00 Hector Gutierrez MD is Private Physician. es 07:00 [facility] jr8 07:00 Charbel Novak MD is Attending Physician. jr8 07:08 Alyssa Johns RN is Primary Nurse. ph 07:10 Patient has correct armband on for positive identification. Bed in low position. Call ph light in reach. Pulse ox on. NIBP on. Door closed. Noise minimized. Warm blanket given. 07:11 Triage completed. ea 07:11 Arm band placed on right wrist. Patient placed in an exam room, on a stretcher, on ea pulse oximetry. 07:31 X-ray(s) taken. sv 07:38 XRAY Ankle LEFT 3 view In Process Unspecified. EDMS 07:55 Miguelito Porras MD is Referral Physician. jr8 08:06 No provider procedures requiring assistance completed. Patient did not have IV access sv during this emergency room visit. Administered Medications: No medications were administered Outcome: 07:55 Discharge ordered by . jr8 08:06 Discharged to home ambulatory. sv 08:06 Condition: stable 08:06 Discharge instructions given to patient, Instructed on discharge instructions, follow up and referral plans. Demonstrated understanding of instructions, follow-up care. 08:06 Patient left the ED. sv Signatures: Dispatcher [employer] EDLA Ani Diallo RN RN sv Salyer, Edna es Roszak, Josh, PA PA jr8 Alyssa Johns RN RN ph Antunez, Elena, RN RN ea
--- NOTE | 2019-12-31 07:56 | EDPHYS ---
Physician Documentation [facility] Name: Bucky Norton Age: 34 yrs Sex: Male : 1985 Arrival Date: 12/31/2019 Time: 07:00 Bed 5 Private MD: Hector Gutierrez E ED Physician Charbel Novak HPI: 12/30 07:25 This 34 yrs old Black Male presents to ER via Ambulatory with complaints of Ankle jr8 Injury. 07:25 The patient presents with decreased range of motion, pain, swelling. The complaints jr8 affect the left ankle. Onset: The symptoms/episode began/occurred acutely, yesterday. Context: The problem was sustained outdoors, resulted from a mis-step by the patient, on a curb, The mechanism of injury involved inversion of the affected ankle. Associated signs and symptoms: The patient has no apparent associated signs or symptoms. Modifying factors: The symptoms are alleviated by nothing, the symptoms are aggravated by weight bearing, movement. Severity of symptoms: At their worst the symptoms were moderate, in the emergency department the symptoms are unchanged. The patient has not experienced similar symptoms in the past. The patient has not recently seen a physician. Stated that he thought he was ok last night but this morning ankle was throbbing and felt much worse . Historical: - Allergies: 07:09 No Known Allergies; ph - PMHx: 07:09 Diabetes - NIDDM; Hypertension; ph - PSHx: 07:09 None; ph - Immunization history:: Adult Immunizations up to date. - Social history:: Smoking status: unknown. ROS: 07:25 Eyes: Negative for injury, pain, redness, and discharge, ENT: Negative for injury, jr8 pain, and discharge, Neck: Negative for injury, pain, and swelling, Cardiovascular: Negative for chest pain, palpitations, and edema, Respiratory: Negative for shortness of breath, cough, wheezing, and pleuritic chest pain, Abdomen/GI: Negative for abdominal pain, nausea, vomiting, diarrhea, and constipation, Back: Negative for injury and pain, Skin: Negative for injury, rash, and discoloration, Neuro: Negative for headache, weakness, numbness, tingling, and seizure. 07:25 MS/extremity: Positive for decreased range of motion, pain, swelling, tenderness, of the left ankle. Exam: 07:25 Constitutional: This is a well developed, well nourished patient who is awake, alert, jr8 and in no acute distress. Cardiovascular: Regular rate and rhythm with a normal S1 and S2. No gallops, murmurs, or rubs. Normal PMI, no JVD. No pulse deficits. Respiratory: Lungs have equal breath sounds bilaterally, clear to auscultation and percussion. No rales, rhonchi or wheezes noted. No increased work of breathing, no retractions or nasal flaring. Skin: Warm, dry with normal turgor. Normal color with no rashes, no lesions, and no evidence of cellulitis. Neuro: Awake and alert, GCS 15, oriented to person, place, time, and situation. Cranial nerves II-XII grossly intact. Motor strength 5/5 in all extremities. Sensory grossly intact. Cerebellar exam normal. Normal gait. 07:25 Musculoskeletal/extremity: Extremities: grossly normal except: noted in the left ankle: moderate swelling with tenderness to the lateral malleolus present. Pain with ROM but has full ROM. Pulses 2 + DP and PT with normal sensation. Rest of extremities unremarkable . Vital Signs: 07:09 BP 151 / 99; Pulse 93; Resp 18; Temp 98.1; Pulse Ox 99% on R/A; ph 07:10 Weight 127.01 kg; Height 6 ft. 2 in. (187.96 cm); ea 07:10 Body Mass Index 35.95 (127.01 kg, 187.96 cm) ea MDM: 07:01 Patient medically screened. jr8 07:53 Data reviewed: vital signs, nurses notes, radiologic studies, plain films. Data jr8 interpreted: Pulse oximetry: on room air is 99 %. Interpretation: normal. Counseling: I had a detailed discussion with the patient and/or guardian regarding: the historical points, exam findings, and any diagnostic results supporting the discharge/admit diagnosis, radiology results, the need for outpatient follow up, a orthopedic surgeon, to return to the emergency department if symptoms worsen or persist or if there are any questions or concerns that arise at home. 12/30 07:17 Order name: XRAY Ankle LEFT 3 view jr8 Administered Medications: No medications were administered Disposition: 12/31/19 07:55 Discharged to Home. Impression: Sprain of ankle. - Condition is Stable. - Discharge Instructions: Ankle Sprain. - Work release form, Medication Reconciliation Form, Thank You Letter, Antibiotic Education, Prescription Opioid Use form. - Follow up: Miguelito Porras MD; When: As needed; Reason: If symptoms return, Recheck today's complaints, Continuance of care, Re-evaluation by your physician. - Problem is new. - Symptoms have improved. Signatures: Dispatcher [employer] EDAK Ani Diallo RN RN Nikhil Villasenor PA PA jr8 Alyssa Johns RN RN Airam Lawler RN RN ea Corrections: (The following items were deleted from the chart) 08:06 07:55 12/31/2019 07:55 Discharged to Home. Impression: Sprain of ankle. Condition is sv Stable. Forms are Medication Reconciliation Form, Thank You Letter, Antibiotic Education, Prescription Opioid Use. Follow up: Miguelito Porras; When: As needed; Reason: If symptoms return, Recheck today's complaints, Continuance of care, Re-evaluation by your physician. Problem is new. Symptoms have improved. jr8
[2019-12-31 08:13] VITALS: BP 151/99; TEMP 98.1; O2SAT 99
--- NOTE | 2019-12-31 08:26 | RAD REPORT ---
EXAM DESCRIPTION: RAD - Ankle Left 3 View - 12/31/2019 7:42 am CLINICAL HISTORY: Left ankle pain, twisting injury COMPARISON: None. FINDINGS: No fracture, dislocation or periosteal reaction. No joint effusion seen. No joint space na rrowing. Spurring is present at the Achilles tendon attachment. Film artifacts are present. Lateral soft tissue swelling is present. IMPRESSION: Soft tissue swelling with no left ankle fracture.
== END 2019-12-31 08:06 | disposition home or self-care (01) ==
LOC: ER 06:58
DX: S93.402A Sprain of unspecified ligament of left ankle, initial encounter (principal); X50.1XXA Overexertion from prolonged static or awkward postures, initial encounter; Y93.89 Activity, other specified; Y92.9 Unspecified place or not applicable; Y99.0 Civilian activity done for income or pay
CPT/HCPCS: 99283

== ENCOUNTER 2021-08-06 17:33 | Emergency (ER) | payer SELFPAY ==
--- NOTE | 2021-08-06 23:16 | ER ---
Nurse's Notes [facility] Name: Bucky Norton Age: 36 yrs Sex: Male : 1985 Arrival Date: 08/06/2021 Time: 22:53 Bed 12 Private MD: Diagnosis: Acute pharyngitis, unspecified;Acute upper respiratory infection, unspecified Presentation: 08/06 22:57 Chief complaint: Patient states: C/o congestion and REYNOLDS x2 days with slight SOB. mk Unvaccinated for covid. Hx HTN. Coronavirus screen: Vaccine status: Patient reports being unvaccinated. Ebola Screen: Patient negative for fever greater than or equal to 101.5 degrees Fahrenheit, and additional compatible Ebola Virus Disease symptoms. Initial Sepsis Screen: Does the patient meet any 2 criteria? No. Patient's initial sepsis screen is negative. Does the patient have a suspected source of infection? No. Patient's initial sepsis screen is negative. Risk Assessment: Do you want to hurt yourself or someone else? Patient reports no desire to harm self or others. Onset of symptoms was August 04, 2021. 22:57 Method Of Arrival: Ambulatory 22:57 Acuity: RICHY 4 Triage Assessment: 23:30 General: Appears in no apparent distress. Behavior is calm, cooperative. Historical: - Allergies: 23:52 No Known Allergies; - Home Meds: 23:52 metformin Oral [Active]; UNKNOWN HTN MEDICATION [Active]; - PMHx: 23:52 Diabetes - NIDDM; Hypertension; - Immunization history:: Adult Immunizations up to date. - Social history:: Smoking status: Reported history of juuling and/or vaping. Screenin:52 Abuse screen: Denies threats or abuse. Nutritional screening: No deficits noted. Tuberculosis screening: No symptoms or risk factors identified. Fall Risk None identified. Assessment: 23:30 General: Appears in no apparent distress. Behavior is calm, cooperative. Pain: Denies pain. Neuro: Level of Consciousness is awake, alert, obeys commands, Oriented to person, place, time, situation. Cardiovascular: Heart tones S1 S2 present Capillary refill < 3 seconds in bilateral fingers toes Clubbing of nail beds is absent JVD is absent Patient's skin is warm and dry. Pulses are 2+ in right radial artery, right dorsalis pedis artery, left radial artery and left dorsalis pedis artery. Respiratory: Airway is patent Trachea midline Respiratory effort is even, unlabored, Respiratory pattern is regular, symmetrical, Breath sounds are clear. GI: Abdomen is non-distended, Abd is soft and non tender X 4 quads. : No signs and/or symptoms were reported regarding the genitourinary system. EENT: Reports nasal congestion since 2 days nasal discharge that is yellow. Derm: Skin is intact, is healthy with good turgor, Skin is dry, Skin is pink, warm \T\ dry. Skin temperature is warm. Musculoskeletal: Circulation, motion, and sensation intact. Capillary refill < 3 seconds, Range of motion: intact in all extremities. 23:42 Reassessment: See paper charting. lp1 Vital Signs: 22:57 BP 149 / 108; Pulse 89; Resp 18; Pulse Ox 99% ; mk 23:42 BP 148 / 79; Pulse 99; Resp 17; Temp 98.9; Pulse Ox 100% on R/A; mk ED Course: 22:53 Patient arrived in ED. 22:57 Charisse Roblero, RN is Primary Nurse. 22:57 CORONAVIRUS Sent. 22:59 Dylan Pascal PA is PHCP. 22:59 Charbel Novak MD is Attending Physician. 22:59 Triage completed. 23:00 Arm band placed on. 23:00 Patient has correct armband on for positive identification. Bed in low position. Call mk light in reach. Side rails up X 1. 23:30 No provider procedures requiring assistance completed. Patient did not have IV access mk during this emergency room visit. Administered Medications: No medications were administered Outcome: 23:16 Discharge ordered by MD. cp 23:41 Discharged to home ambulatory. lp1 23:41 Condition: stable 23:41 Discharge instructions given to patient, Instructed on discharge instructions, follow up and referral plans. medication usage, Demonstrated understanding of instructions, follow-up care, medications, Prescriptions given X 2. 23:42 Patient left the ED. lp1 Signatures: Collette Montenegro RN RN lp1 Dylan Pascal PA PA cp Marsh, Wendy Charisse Roblero RN RN mk Corrections: (The following items were deleted from the chart) 23:50 23:42 Pulse 99bpm; Resp 17bpm; Pulse Ox 100% RA; lp1 mk 23:50 23:42 BP 148 / 79; Pulse 99bpm; Resp 17bpm; Pulse Ox 100% RA; mk mk
--- NOTE | 2021-08-06 23:16 | EDPHYS ---
Physician Documentation [facility] Name: Bucky Norton Age: 36 yrs Sex: Male : 1985 Arrival Date: 08/06/2021 Time: 22:53 Bed 12 Private MD: ED Physician Charbel Novka HPI: 08/06 23:08 This 36 yrs old Black Male presents to ER via Ambulatory with complaints of Nasal cp Congestion. 23:08 The patient or guardian reports cough, that is intermittent, nasal congestion/drainage, cp sore throat. Onset: The symptoms/episode began/occurred 2 day(s) ago. Associated signs and symptoms: Pertinent negatives: diarrhea, fever, vomiting. Severity of symptoms: in the emergency department the symptoms are unchanged despite home interventions. Historical: - Allergies: 23:52 No Known Allergies; mk - Home Meds: 23:52 metformin Oral [Active]; UNKNOWN HTN MEDICATION [Active]; mk - PMHx: 23:52 Diabetes - NIDDM; Hypertension; mk - Immunization history:: Adult Immunizations up to date. - Social history:: Smoking status: Reported history of juuling and/or vaping. ROS: 23:09 Eyes: Negative for injury, pain, redness, and discharge. cp 23:09 Constitutional: Negative for fever, poor PO intake. 23:09 ENT: Positive for rhinorrhea, sinus congestion, sore throat, Negative for drainage from ear(s), ear pain, difficulty swallowing, difficulty handling secretions. 23:09 Cardiovascular: Negative for chest pain. 23:09 Respiratory: Positive for cough, shortness of breath, Negative for wheezing. 23:09 Abdomen/GI: Negative for abdominal pain, vomiting, diarrhea, constipation. 23:09 Neuro: Positive for headache, Negative for altered mental status, weakness. Exam: 23:10 Head/Face: Normocephalic, atraumatic. cp 23:10 Constitutional: The patient appears in no acute distress, alert, awake, non-toxic, well developed, well nourished, obese. 23:10 Eyes: Periorbital structures: appear normal, Conjunctiva: normal, no exudate, no injection, Sclera: no appreciated abnormality, Lids and lashes: appear normal, bilaterally. 23:10 ENT: External ear(s): are unremarkable, Ear canal(s): are normal, clear, TM's: bulging, is not appreciated, bilaterally, erythema, that is moderate, bilaterally, Nose: nasal drainage, and is seen coming from both nares, that is clear, Mouth: Lips: moist, Oral mucosa: moist, Posterior pharynx: Airway: no evidence of obstruction, patent, Uvula: edematous, erythema, erythema, that is marked, exudate, that is moderate. 23:10 Neck: ROM/movement: is normal, is supple, without pain, no range of motions limitations, no meningismus. 23:10 Chest/axilla: Inspection: normal. 23:10 Cardiovascular: Rate: normal. 23:10 Respiratory: the patient does not display signs of respiratory distress, Respirations: normal, no use of accessory muscles, no retractions, labored breathing, is not present, Breath sounds: decreased breath sounds, are not appreciated, stridor, is not appreciated, + upper airway congestion. 23:10 Abdomen/GI: Exam negative for discomfort, distension, guarding, Inspection: abdomen appears normal. 23:10 Back: pain, that is very mild, ROM is normal. 23:10 Neuro: Orientation: to person, place \T\ time. Mentation: is normal, Motor: moves all fours, strength is normal. Vital Signs: 22:57 BP 149 / 108; Pulse 89; Resp 18; Pulse Ox 99% ; mk 23:42 BP 148 / 79; Pulse 99; Resp 17; Temp 98.9; Pulse Ox 100% on R/A; mk MDM: 23:01 Patient medically screened. cp 23:15 Data reviewed: vital signs, nurses notes, lab test result(s), and as a result, I will cp discharge patient. 08/06 22:53 Order name: CORONAVIRUS EDNE 08/06 22:53 Order name: SARS-COV-2 RT PCR; Complete Time: 23:01 EDNE 08/06 23:02 Interpretation: SARSCOV2 RT PCR NEGATIVE; Results reviewed. cp Administered Medications: No medications were administered Disposition: 08/07 03:05 Co-signature as Attending Physician, Charbel Novak MD. mh7 Disposition Summary: 08/06/21 23:16 Discharge Ordered Location: Home cp Problem: new cp Symptoms: are unchanged cp Condition: Stable cp Diagnosis - Acute pharyngitis, unspecified cp - Acute upper respiratory infection, unspecified cp Followup: cp - With: Private Physician - When: 2 - 3 days - Reason: Worsening of condition Discharge Instructions: - Discharge Summary Sheet cp - Pharyngitis cp - Upper Respiratory Infection, Adult cp Forms: - Medication Reconciliation Form cp - Thank You Letter cp - Antibiotic Education cp - Prescription Opioid Use cp Prescriptions: - Augmentin 875-125 mg Oral Tablet - take 1 tablet by ORAL route every 12 hours for 10 days; 20 tablet; Refills: 0, cp Product Selection Permitted - Flonase Allergy Relief 50 mcg/actuation Nasal spray,suspension - spray 1 spray by INTRANASAL route once daily; 1 Device; Refills: 0, Product cp Selection Permitted Signatures: Dylan Pascal PA PA cp Charbel Novak MD MD [facility] [place] [place] Madeline RN RN mk Corrections: (The following items were deleted from the chart) 08/06 23:02 23:02 Results reviewed. cp cp
[2021-08-07 00:40] VITALS: BP 149/108
[2021-08-07 00:41] VITALS: O2SAT 100
== END 2021-08-06 23:42 | disposition home or self-care (01) ==
LOC: ER 17:33
DX: J06.9 Acute upper respiratory infection, unspecified (principal); J02.9 Acute pharyngitis, unspecified; Z20.822 Contact with and (suspected) exposure to COVID-19; I10 Essential (primary) hypertension; E11.9 Type 2 diabetes mellitus without complications
CPT/HCPCS: 99283; U0003

== ENCOUNTER 2022-04-17 07:38 | Emergency (ER) | payer SELFPAY ==
[2022-04-17] MEDS ORDERED: TETRACAINE HCL 0.5% 4ML OPTH ONE (08:15)
[2022-04-17] MEDS ORDERED: FLUORESCEIN SODIUM 1 MG/WRAP ONE (08:17)
--- NOTE | 2022-04-17 08:32 | EDPHYS ---
Physician Documentation [facility] Name: Bucky Norton Age: 37 yrs Sex: Male : 1985 Arrival Date: 04/17/2022 Time: 07:46 Bed 20 Private MD: ED Physician Vlad Guzman HPI: 04/17 08:04 This 37 yrs old Black Male presents to ER via Ambulatory with complaints of Eye jh7 Swelling. 08:04 The patient is experiencing matting or discharge, redness, tearing, , to the left eye, jh7 caused by an unknown mechanism. 08:05 Onset: The symptoms/episode began/occurred 3 day(s) ago. Patient reports that he was jh7 cutting palm trees on Sunday and kept getting debris in his eye. States that he thought he washed it out, but his eye began itching later that afternoon. Reports that he woke up this morning with left eye swelling and drainage. Denies any visual changes.. Historical: - Allergies: 07:56 No Known Allergies; jl7 - Home Meds: 07:56 UNKNOWN HTN MEDICATION [Active]; Metformin Oral [Active]; jl7 - PMHx: 07:56 Diabetes - NIDDM; Hypertension; jl7 - PSHx: 07:56 None; jl7 - Immunization history:: Client reports having NOT received the Covid vaccine. - Social history:: Smoking status: Patient reports the use of cigarette tobacco products, cigars. ROS: 08:05 Constitutional: Negative for fever, chills, and weight loss, ENT: Negative for injury, jh7 pain, and discharge, Neck: Negative for injury, pain, and swelling, Cardiovascular: Negative for chest pain, palpitations, and edema, Respiratory: Negative for shortness of breath, cough, wheezing, and pleuritic chest pain, Abdomen/GI: Negative for abdominal pain, nausea, vomiting, diarrhea, and constipation, MS/Extremity: Negative for injury and deformity, Skin: Negative for injury, rash, and discoloration, Neuro: Negative for headache, weakness, numbness, tingling, and seizure. 08:05 Eyes: Positive for itching, redness, swelling, tearing, Negative for blurry vision, vision loss, visual disturbance. 08:05 All other systems are negative. Exam: 08:05 Constitutional: This is a well developed, well nourished patient who is awake, alert, jh7 and in no acute distress. Head/Face: Normocephalic, atraumatic. Cardiovascular: Regular rate and rhythm with a normal S1 and S2. No gallops, murmurs, or rubs. Normal PMI, no JVD. No pulse deficits. Respiratory: Lungs have equal breath sounds bilaterally, clear to auscultation and percussion. No rales, rhonchi or wheezes noted. No increased work of breathing, no retractions or nasal flaring. Abdomen/GI: Soft, non-tender, with normal bowel sounds. No distension or tympany. No guarding or rebound. No evidence of tenderness throughout. Skin: Warm, dry with normal turgor. Normal color with no rashes, no lesions, and no evidence of cellulitis. MS/ Extremity: Pulses equal, no cyanosis. Neurovascular intact. Full, normal range of motion. Neuro: Awake and alert, GCS 15, oriented to person, place, time, and situation. Cranial nerves II-XII grossly intact. Motor strength 5/5 in all extremities. Sensory grossly intact. Normal gait. 08:05 Eyes: Periorbital structures: swelling, that is mild, on the left lower eyelid, Pupils: equal, round, and reactive to light and accomodation, Extraocular movements: intact throughout, Conjunctiva: exudate, in the left eye, injected, in the left eye, tearing noted, Corneas: a fluorescein strip employed to appreciate the findings, No corneal abrasion or foreign body identified, Sclera: no appreciated abnormality, Anterior chamber: normal, no hyphema, Lids and lashes: appear normal, on the left, Visual tovar: are intact, Nystagmus: is not appreciated, Examination of the other eye reveals no obvious gross abnormality, a slit lamp exam was employed for the exam. Vital Signs: 07:54 BP 157 / 115; Pulse 79; Resp 17; Temp 98.4; Pulse Ox 100% ; Weight 117.93 kg; Height 6 jl7 ft. 0 in. (182.88 cm); Pain 5/10; 08:20 BP 147 / 104; Pulse 78; Resp 16; Pulse Ox 96% on R/A; tp1 07:54 Body Mass Index 35.26 (117.93 kg, 182.88 cm) jl7 Visual Acuity: 08:20 Left Eye Visual acuity 20/25, Normal; Right Eye Visual acuity 20/20, Normal; Without tp1 Lenses; MDM: 07:58 Patient medically screened. jh7 08:30 Differential diagnosis: Corneal abrasion of left eye. Corneal ulcer of left eye. jh7 Foreign body in left eye. Allergic conjunctivitis in left eye. Infectious conjunctivitis in left eye. Data reviewed: vital signs, nurses notes. Data interpreted: Pulse oximetry: is 96 %. Interpretation: normal. Counseling: I had a detailed discussion with the patient and/or guardian regarding: the historical points, exam findings, and any diagnostic results supporting the discharge/admit diagnosis, the need for outpatient follow up, Ophthalmology, to return to the emergency department if symptoms worsen or persist or if there are any questions or concerns that arise at home. ED course: Informed the patient that there was no corneal abrasion or foreign body identified. Explained to him that he had an eye infection in his eye and potentially an infection of the skin around his eye. No pain with extraocular movement and only mild tenderness when the periorbital swelling was palpated. No visual changes. Advised him to follow-up with an director of early childhood and if any visual changes or pain with eye movement occurs, he should return to the ER immediately. The patient understood the plan of care.. 04/17 07:58 Order name: Eye Tray; Complete Time: 08:07 7 04/17 07:58 Order name: Fluoresene Opth strip; Complete Time: 08:07 7 04/17 07:58 Order name: Visual Acuity; Complete Time: 08:17 jl7 Administered Medications: 08:35 Drug: ERYTHromycin Ointment 1 application Route: Ophthalmic; Site: left eye; tp1 09:19 Follow up: Response: No adverse reaction tp1 08:35 Drug: Tetracaine Drops 0.5 % 1 drops {Note: administered by Hadash.} Route: Ophthalmic; tp1 Site: left eye; 09:19 Follow up: Response: No adverse reaction tp1 Disposition: 04/18 08:23 Co-signature as Attending Physician, Vlad WHARTON was immediately available on-site ms3 in the Emergency Department for consultation in the care of the patient. . Disposition Summary: 04/17/22 08:31 Discharge Ordered Location: Home [facility] Problem: new jh7 Symptoms: are unchanged jh7 Condition: Stable jh7 Diagnosis - Other mucopurulent conjunctivitis, left eye 7 - Periorbital cellulitis [facility] Followup: [facility] - With: Private Physician - When: 2 - 3 days - Reason: Recheck today's complaints Discharge Instructions: - Discharge Summary Sheet 7 - Bacterial Conjunctivitis, Adult 7 - Preseptal Cellulitis, Adult [facility] Forms: - Work release form bd - Medication Reconciliation Form [facility] - Thank You Letter [facility] - Antibiotic Education [facility] Prescriptions: - Clindamycin HCl 300 mg Oral Capsule - take 1 capsule by ORAL route every 8 hours for 7 days; 21 capsule; Refills: 0, [facility] Product Selection Permitted - Erythromycin 5 mg/gram (0.5 %) Ophthalmic Ointment - apply 1 centimeter by OPHTHALMIC route 2-3 times daily for 7 days; 1 tube; [facility] Refills: 0, Product Selection Permitted Signatures: Ruddy Moore RN RN jl7 Vlad Guzman DO DO ms3 Leonila Hayes RN RN tp1 Delfina Hobson, [employer]NER [employer]NER [facility] Corrections: (The following items were deleted from the chart) 04/17 08:06 08:04 The patient is experiencing matting or discharge, redness, tearing, , [place] [id number] 08:40 08:05 Eyes: Periorbital structures: swelling, that is mild, on the left lower eyelid, [facility] Pupils: equal, round, and reactive to light and accomodation, Extraocular movements: intact throughout, Conjunctiva: injected, in the left eye, tearing noted, Sclera: no appreciated abnormality, Lids and lashes: appear normal, on the left, Visual tovar: are intact, [facility]
--- NOTE | 2022-04-17 08:32 | ER ---
Nurse's Notes [facility] Name: Bucky Norton Age: 37 yrs Sex: Male : 1985 Arrival Date: 04/17/2022 Time: 07:46 Bed 20 Private MD: Diagnosis: Other mucopurulent conjunctivitis, left eye;Periorbital cellulitis Presentation: 04/17 07:54 Chief complaint: Patient states: left eye started itching on Sunday and swelling jl7 increased through today, tearing noted. Coronavirus screen: At this time, the client does not indicate any symptoms associated with coronavirus-19. Ebola Screen: No symptoms or risks identified at this time. Initial Sepsis Screen: Does the patient meet any 2 criteria? No. Patient's initial sepsis screen is negative. Does the patient have a suspected source of infection? No. Patient's initial sepsis screen is negative. Risk Assessment: Do you want to hurt yourself or someone else? Patient reports no desire to harm self or others. Onset of symptoms was April 14, 2022. 07:54 Method Of Arrival: Ambulatory jl7 07:54 Acuity: RICHY 4 jl7 Triage Assessment: 07:56 General: Appears in no apparent distress. uncomfortable, Behavior is calm, cooperative, jl7 appropriate for age. Pain: Complains of pain in left eye. Historical: - Allergies: 07:56 No Known Allergies; jl7 - Home Meds: 07:56 UNKNOWN HTN MEDICATION [Active]; Metformin Oral [Active]; jl7 - PMHx: 07:56 Diabetes - NIDDM; Hypertension; jl7 - PSHx: 07:56 None; jl7 - Immunization history:: Client reports having NOT received the Covid vaccine. - Social history:: Smoking status: Patient reports the use of cigarette tobacco products, cigars. Screenin:13 Abuse screen: Denies threats or abuse. Denies injuries from another. Nutritional tp1 screening: No deficits noted. Tuberculosis screening: No symptoms or risk factors identified. Fall Risk None identified. Assessment: 08:10 General: Appears in no apparent distress. uncomfortable, Behavior is calm, cooperative. tp1 Pain: Complains of pain in left eye Pain does not radiate. Pain currently is 5 out of 10 on a pain scale. Quality of pain is described as pressure, dry Pain began 2-3 days ago. Neuro: Level of Consciousness is awake, alert, obeys commands. Cardiovascular: Patient's skin is warm and dry. Respiratory: Airway is patent Respiratory effort is even, unlabored, Respiratory pattern is regular. GI: No signs and/or symptoms were reported involving the gastrointestinal system. : No signs and/or symptoms were reported regarding the genitourinary system. EENT: Eyes swelling to the left lower lid noted, no redness noted. . Derm: Skin is pink, warm \T\ dry. Musculoskeletal: Circulation, motion, and sensation intact. Vital Signs: 07:54 BP 157 / 115; Pulse 79; Resp 17; Temp 98.4; Pulse Ox 100% ; Weight 117.93 kg; Height 6 jl7 ft. 0 in. (182.88 cm); Pain 5/10; 08:20 BP 147 / 104; Pulse 78; Resp 16; Pulse Ox 96% on R/A; tp1 07:54 Body Mass Index 35.26 (117.93 kg, 182.88 cm) jl7 Visual Acuity: 08:20 Left Eye Visual acuity 20/25, Normal; Right Eye Visual acuity 20/20, Normal; Without tp1 Lenses; ED Course: 07:46 Patient arrived in ED. rg4 07:53 Delfina Hobson FNP is [facility]. jh7 07:53 Vlad Guzman DO is Attending Physician. jh7 07:56 Triage completed. jl7 07:56 Arm band placed on right wrist. jl7 08:00 Leonila Hayes, RN is Primary Nurse. tp1 08:10 Patient has correct armband on for positive identification. Bed in low position. Call tp1 light in reach. 08:10 Pulse ox on. NIBP on. tp1 09:13 No provider procedures requiring assistance completed. Patient did not have IV access tp1 during this emergency room visit. Administered Medications: 08:35 Drug: ERYTHromycin Ointment 1 application Route: Ophthalmic; Site: left eye; tp1 09:19 Follow up: Response: No adverse reaction tp1 08:35 Drug: Tetracaine Drops 0.5 % 1 drops {Note: administered by Rikiash.} Route: Ophthalmic; tp1 Site: left eye; 09:19 Follow up: Response: No adverse reaction tp1 Medication: 09:13 VIS not applicable for this client. tp1 Outcome: 08:31 Discharge ordered by MD. michel 09:18 Discharged to home ambulatory. tp1 09:18 Condition: good 09:18 Discharge instructions given to patient, Instructed on discharge instructions, follow up and referral plans. medication usage, Demonstrated understanding of instructions, follow-up care, medications, Prescriptions given X 2. 09:19 Patient left the ED. tp1 Signatures: Cait Renee4 Ruddy Moore RN RN jl7 Leonila Hayes RN RN tp1 Delfina Hobson FNP FNP 7
[2022-04-17] MEDS ORDERED: ERYTHROMYCIN 1 APPL/1 GM TUBE EACH EYE ONE (09:00)
[2022-04-19 09:28] VITALS: BP 147/104; O2SAT 96
[2022-04-19 09:35] VITALS: TEMP 98.4
== END 2022-04-17 09:19 | disposition home or self-care (01) ==
LOC: ER 07:38
DX: L03.213 Periorbital cellulitis (principal); H10.022 Other mucopurulent conjunctivitis, left eye
CPT/HCPCS: 99283

== ENCOUNTER 2022-06-09 08:07 | Emergency (ER) | payer OTHER ==
[2022-06-09 09:28] LABS: SARS-COV-2 RT PCR NEGATIVE (NEGATIVE)
--- NOTE | 2022-06-09 09:47 | ER ---
Nurse's Notes [facility] Name: Bucky Norton Jr Age: 37 yrs Sex: Male : 1985 Arrival Date: 06/09/2022 Time: 08:12 Bed 12 [facility] MD: Diagnosis: Streptococcal pharyngitis Presentation: 06/09 08:20 Chief complaint: Patient states: headache, sinus congestion and diarrhea that began ss Sunday. Coronavirus screen: Client denies travel out of the [place] in the last 14 days. Ebola Screen: Patient denies exposure to infectious person. Patient denies travel to an Ebola-affected area in the 21 days before illness onset. Initial Sepsis Screen: Does the patient meet any 2 criteria? No. Patient's initial sepsis screen is negative. Does the patient have a suspected source of infection? No. Patient's initial sepsis screen is negative. Risk Assessment: Do you want to hurt yourself or someone else? Patient reports no desire to harm self or others. Onset of symptoms was June 06, 2022. 08:20 Method Of Arrival: Ambulatory ss 08:20 Acuity: RICHY 3 ss Historical: - Allergies: 08:21 No Known Allergies; ss - Home Meds: 08:21 Metformin Oral [Active]; gabapentin oral [Active]; "supposed to be taking BP ss medication" [Active]; - PMHx: 08:21 Diabetes - NIDDM; Hypertension; Neuropathy; ss - PSHx: 08:21 None; ss - Immunization history:: Client reports receiving the 2nd dose of the Covid vaccine. - Social history:: Smoking status: Patient reports the use of cigarette tobacco products, cigars. Screenin:30 Abuse screen: Denies threats or abuse. Denies injuries from another. Nutritional ss screening: No deficits noted. Tuberculosis screening: Never had TB. Fall Risk None identified. Assessment: 08:30 General: Appears in no apparent distress. comfortable, Behavior is calm, cooperative. ss Neuro: Level of Consciousness is awake, alert, obeys commands, Oriented to person, place, time, situation. Cardiovascular: Capillary refill < 3 seconds is brisk in bilateral fingers. Respiratory: Airway is patent Respiratory effort is even, unlabored, Respiratory pattern is regular, symmetrical. GI: Reports diarrhea. EENT: Reports nasal congestion. Derm: Skin is intact, is healthy with good turgor, Skin is dry, Skin is pink, warm \\T\\ dry. normal. Vital Signs: 08:20 BP 157 / 117; Pulse 80; Resp 16; Temp 99.0(TE); Pulse Ox 100% on R/A; Weight 117.93 kg; ss Height 6 ft. 0 in. (182.88 cm); Pain 5/10; 08:20 Body Mass Index 35.26 (117.93 kg, 182.88 cm) ED Course: 08:12 Patient arrived in ED. as 08:13 Estiven Morton PA is PHCP. janell 08:13 Joni Watts MD is Attending Physician. [facility] 08:21 Triage completed. ss 08:21 Arm band placed on right wrist. ss 08:30 Patient has correct armband on for positive identification. Bed in low position. ss 09:26 Savanna Neal RN is Primary Nurse. ss 10:04 No provider procedures requiring assistance completed. Patient did not have IV access ss during this emergency room visit. Administered Medications: No medications were administered Medication: 08:30 VIS not applicable for this client. ss Outcome: 09:46 Discharge ordered by . [facility] 10:04 Discharged to home ambulatory. ss 10:04 Condition: good 10:04 Discharge instructions given to patient, family, Instructed on discharge instructions, follow up and referral plans. medication usage, Demonstrated understanding of instructions, follow-up care, medications, Prescriptions given X 1. 10:05 Patient left the ED. Signatures: Estiven Morton PA PA jmm Martinez, Amelia as Savanna Neal, JULIA RN ss
--- NOTE | 2022-06-09 09:47 | EDPHYS ---
Physician Documentation [facility] Name: Bucky Norton Jr Age: 37 yrs Sex: Male : 1985 Arrival Date: 06/09/2022 Time: 08:12 Bed 12 Private MD: ED Physician Joni Watts HPI: 06/09 08:31 This 37 yrs old Black Male presents to ER via Ambulatory with complaints of Diarrhea, jmm Congestion, Back Pain. 08:31 Onset: The symptoms/episode began/occurred gradually. Possible causes: unknown. The jmm symptoms are aggravated by nothing. The symptoms are alleviated by nothing. Associated signs and symptoms: Pertinent negatives: abdominal pain, vomiting. This is a 37 year old male with a history of dm, htn, that presents to the ED with complaints of diarrhea, sinus congestion, body aches beginning this past Sunday. Son has similar symptoms. Denies vomiting, abdominal pain. . Historical: - Allergies: 08:21 No Known Allergies; ss - Home Meds: 08:21 Metformin Oral [Active]; gabapentin oral [Active]; "supposed to be taking BP ss medication" [Active]; - PMHx: 08:21 Diabetes - NIDDM; Hypertension; Neuropathy; ss - PSHx: 08:21 None; ss - Immunization history:: Client reports receiving the 2nd dose of the Covid vaccine. - Social history:: Smoking status: Patient reports the use of cigarette tobacco products, cigars. ROS: 08:31 Constitutional: Positive for body aches, chills, fatigue. jmm 08:31 ENT: Positive for sinus congestion. 08:31 Respiratory: Negative for cough, shortness of breath. 08:31 Abdomen/GI: Positive for diarrhea. 08:31 All other systems are negative. Exam: 08:31 Constitutional: This is a well developed, well nourished patient who is awake, alert, jmm and in no acute distress. Head/Face: atraumatic. Eyes: EOMI, no conjunctival erythema appreciated 08:31 Neck: Trachea midline, Supple Chest/axilla: Normal chest wall appearance and motion. Cardiovascular: Regular rate and rhythm. No edema appreciated Respiratory: Normal respirations, no respiratory distress appreciated Abdomen/GI: Non distended Back: Normal ROM Skin: General appearance color normal 08:31 ENT: Posterior pharynx: erythema, that is moderate, exudate, that is mild, peritonsillar mass, is not appreciated. 08:31 Musculoskeletal/extremity: ROM: intact in all extremities. 08:31 Skin: Appearance: Color: normal in color. 08:31 Neuro: Motor: is normal. Vital Signs: 08:20 BP 157 / 117; Pulse 80; Resp 16; Temp 99.0(TE); Pulse Ox 100% on R/A; Weight 117.93 kg; ss Height 6 ft. 0 in. (182.88 cm); Pain 5/10; 08:20 Body Mass Index 35.26 (117.93 kg, 182.88 cm) ss MDM: 08:26 Patient medically screened. [facility] 09:44 Data reviewed: vital signs, nurses notes. Counseling: I had a detailed discussion with janell the patient and/or guardian regarding: the historical points, exam findings, and any diagnostic results supporting the discharge/admit diagnosis, lab results, radiology results, the need for outpatient follow up, to return to the emergency department if symptoms worsen or persist or if there are any questions or concerns that arise at home. ED course: Patient is alert and non toxic in appearance in the ED. No signs of resp distress. patient advised to follow up with pcp and otherwise given strict return precautions. patient understood and agrees with the plan of care. . 06/09 08:26 Order name: COVID-19/FLU A+B; Complete Time: 09:29 [facility] 06/09 08:26 Order name: Strep; Complete Time: 09:08 [facility] Administered Medications: No medications were administered Disposition Summary: 06/09/22 09:46 Discharge Ordered Location: Home [facility] Condition: Stable casi Diagnosis - Streptococcal pharyngitis [facility] Followup: janell - With: Private Physician - When: 2 - 3 days - Reason: Recheck today's complaints, Continuance of care, Re-evaluation by your physician Discharge Instructions: - Discharge Summary Sheet janell - Pharyngitis casi Forms: - Medication Reconciliation Form janell - Thank You Letter janell - Antibiotic Education [facility] - Prescription Opioid Use casi - Work release form Prescriptions: - Amoxicillin 875 mg Oral Tablet - take 1 tablet by ORAL route every 12 hours for 10 days; 20 tablet; Refills: 0, janell Product Selection Permitted Signatures: Dispatcher [employer] Estiven Guillen PA PA jmm Savanna Neal, JULIA RN ss
[2022-06-09 10:50] VITALS: BP 157/117; TEMP 99; O2SAT 100
== END 2022-06-09 10:05 | disposition home or self-care (01) ==
LOC: ER 08:07
DX: J02.0 Streptococcal pharyngitis (principal); Z20.822 Contact with and (suspected) exposure to COVID-19
CPT/HCPCS: 87081; 0240U; 99282

== ENCOUNTER 2022-12-07 06:25 | Emergency (ER) | payer OTHER ==
[2022-12-07 19:17] LABS: Absolute Lymphocytes (CBC) 1.9 K/uL (0.7-4.9); Hematocrit 51.6 % (39.6-49.0); Lymphocytes % 28.1 % (15.3-44.8); MCV 92.6 fL (80-100); MPV 8.3 fL (7.6-11.3); RBC Red Blood Cell Count 5.57 M/uL (4.33-5.43)
[2022-12-07 19:26] LABS: SARS-CoV-2 Antigen Rapid Res Negative (Negative)
[2022-12-07 19:37] LABS: Albumin 4.5 g/dL (3.4-5.0); Bilirubin Direct 0.1 mg/dL (0-0.2); Bilirubin Indirect, Calculated 0.4 mg/dL (0.2-0.8); Bilirubin Total 0.5 mg/dL (0.2-1.0); Magnesium 1.9 mg/dL (1.6-2.4); Potassium 3.6 mEq/L (3.5-5.1); Protein, Total 9.1 g/dL (6.4-8.2); Troponin High Sensitivity 10.2 pg/mL (<58.9)
--- NOTE | 2022-12-07 19:55 | RAD REPORT ---
[facility]20 [facility] CLINICAL HISTORY: body aches COMPARISON: Chest Single View dated 08/09/2019 TECHNIQUE: Portable AP view of the chest. FINDINGS: The lungs are clear. No pneumothorax or effusion. The cardiomediastinal contours are unrem arkable. IMPRESSION: No acute cardiopulmonary process.
[2022-12-07] MEDS ORDERED: KETOROLAC 30 MG/ML INJ ONE (20:09)
[2022-12-07] MEDS ORDERED: METOCLOPRAMIDE 10 MG/2mL INJ ONE (20:09)
[2022-12-07] MEDS ORDERED: dexAMETHasone 10 MG/ML VIAL ONE (20:09)
--- NOTE | 2022-12-07 20:15 | RAD REPORT ---
EXAM DESCRIPTION: CT - Head Brain Wo Cont - 12/07/2022 7:14 pm CLINICAL HISTORY: HEADACHE COMPARISON: No comparisons TECHNIQUE: Noncontrast head CT images ad were obtained without IV contrast. Multiplanar reformats we re generated and reviewed. All CT scans are performed using dose optimization technique as appropriate and may include automated exposure control or mA/KV adjustment according to patient size. FINDINGS: No intracranial hemorrhage, mass, or edema. Midline structures are unremarkable. Normal ventricular caliber for age. Granados-white matter differentiation is preserved, without evidence of acute infarct. No abnormal extra- axial fluid collections. Mastoid air cells are well aerated. Mild mucosal thickening the maxillary sinuses more so on the righ t with small polyps. Right first molar periapical abscess ease, including 1 collection that projects along the floor of the right maxillary sinus. No acute bony findings. IMPRESSION: No evidence of an acute intracranial process. Right first molar periapical abscess ease, including 1 collection that projects along the floor of th e right maxillary sinus.
[2022-12-07] MEDS ORDERED: NA CHLORIDE 0.9% 1,000 ML ONE (20:25)
--- NOTE | 2022-12-07 21:04 | EDPHYS ---
Physician Documentation [facility] Name: Bucky Norton Jr Age: 37 yrs Sex: Male : 1985 Arrival Date: 12/07/2022 Time: 18:28 Bed 19 Private MD: ED Physician Dylan Bettencourt HPI: 12/07 19:00 This 37 yrs old Black Male presents to ER via Ambulatory with complaints of Headache, cp BODY ACHES AND PAINS. 19:00 The patient complains of pain to the top of head and forehead. The patient describes cp the headache as aching. Onset: The symptoms/episode began/occurred yesterday. Associated signs and symptoms: Pertinent positives: fatigue, "not feeling well", body aches, Pertinent negatives: altered mental status, fever, neck stiffness, vision changes, vomiting, chest pain, vomiting, diarrhea. Severity of symptoms: in the emergency department the pain is unchanged, despite home interventions. Patient reports history of DM and HTN. Stopped taking meds months ago. Historical: - Home Meds: 18:45 Metformin Oral [Active]; vg1 - PMHx: 18:45 Diabetes - NIDDM; Hypertension; neuropathy; vg1 - Immunization history:: Client reports having NOT received the Covid vaccine. - Social history:: Smoking status: Patient reports the use of cigarette tobacco products, smokes one-half pack cigarettes per day. ROS: 19:05 Constitutional: Positive for body aches, Negative for fever, poor PO intake. cp 19:05 Eyes: Negative for injury, pain, redness, and discharge. cp 19:05 ENT: Negative for drainage from ear(s), ear pain, sore throat, difficulty swallowing, difficulty handling secretions. 19:05 Cardiovascular: Negative for chest pain, edema, palpitations. 19:05 Respiratory: Negative for cough, shortness of breath, wheezing. 19:05 Abdomen/GI: Negative for abdominal pain, vomiting, diarrhea, constipation, black/tarry stool, rectal bleeding. 19:05 Neuro: Positive for headache, Negative for altered mental status. 19:05 All other systems are negative. Exam: 19:10 Constitutional: The patient appears in no acute distress, alert, awake, cp non-diaphoretic, non-toxic, well developed, well nourished, overweight 19:10 Head/Face: Normocephalic, atraumatic. cp 19:10 Eyes: Periorbital structures: appear normal, Conjunctiva: normal, no exudate, no injection, Sclera: no appreciated abnormality, Lids and lashes: appear normal, bilaterally. 19:10 ENT: External ear(s): are unremarkable, Ear canal(s): are normal, clear, TM's: dullness, bilaterally, Nose: is normal, Mouth: Lips: moist, Oral mucosa: pink and intact, moist, Posterior pharynx: is normal, airway is patent, no erythema, no exudate, Dental exam: abscess, is not appreciated, dental caries, that is mild, pain, is not appreciated, Voice: is normal. 19:10 Neck: ROM/movement: is normal, is supple, without pain, no range of motions limitations, no meningismus. 19:10 Chest/axilla: Inspection: normal. 19:10 Cardiovascular: Rate: tachycardic, Rhythm: regular, Edema: is not appreciated, JVD: is not appreciated. 19:10 ECG was reviewed by the Attending Physician. 19:10 Respiratory: the patient does not display signs of respiratory distress, Respirations: normal, no use of accessory muscles, no retractions, labored breathing, is not present, Breath sounds: are clear throughout, no decreased breath sounds, no stridor, no wheezing. 19:10 Abdomen/GI: Inspection: abdomen appears normal, Palpation: abdomen is soft and non-tender, in all quadrants. 19:10 Back: pain, is absent, ROM is normal. 19:10 Skin: cellulitis, is not appreciated, no rash present. 19:10 Neuro: Orientation: to person, place \\T\\ time. Mentation: able to follow commands, slow to respond, Cerebellar function: is grossly normal, Motor: moves all fours, strength is normal, Sensation: is normal, Gait: is steady. Vital Signs: 18:41 BP 152 / 109; Pulse 103; Resp 16; Temp 98.8(O); Pulse Ox 99% ; Weight 113.4 kg; Height vg1 6 ft. 0 in. ; 19:32 BP 147 / 87; Pulse 101; Resp 23 S; Pulse Ox 97% on R/A; lg3 21:40 BP 129 / 83; Pulse 78; Resp 20 S; Pulse Ox 98% on R/A; lg3 18:41 Body Mass Index 33.91 (113.40 kg, 182.88 cm) vg1 MDM: 18:50 Patient medically screened. [facility] 21:03 Data reviewed: vital signs, nurses notes, lab test result(s), EKG, radiologic studies, cp CT scan. 21:03 Differential diagnosis: meningoencephalitis, migraine, sepsis, DKA. Consideration of cp Admission/Observation Escalation of care including admission/observation considered. Care significantly affected by the following chronic conditions: Diabetes, Hypertension. Counseling: I had a detailed discussion with the patient and/or guardian regarding: the historical points, exam findings, and any diagnostic results supporting the discharge/admit diagnosis, lab results, radiology results, the need for outpatient follow up, a family practitioner, to return to the emergency department if symptoms worsen or persist or if there are any questions or concerns that arise at home. Response to treatment: the patient's symptoms have mildly improved after treatment, and as a result, I will discharge patient. 12/07 18:51 Order name: Basic Metabolic Panel; Complete Time: 19:48 cp 12/07 19:48 Interpretation: Normal except: NA 134; GLUC 142; GFR 78. cp 12/07 18:51 Order name: CBC with Diff; Complete Time: 19:48 cp 12/07 19:48 Interpretation: Normal except: RBC 5.57; HCT 51.6. cp 12/07 18:51 Order name: LFT's; Complete Time: 19:48 cp 12/07 19:48 Interpretation: Normal except: TP 9.1; GLOB 4.6; A/G 1.0. cp 12/07 18:51 Order name: Magnesium; Complete Time: 19:48 cp 12/07 18:51 Order name: Troponin HS; Complete Time: 19:48 cp 18 18:51 Order name: Influenza Screen (a \\T\\ B); Complete Time: 20:20 cp 12/07 19:08 Order name: Glucose, Ancillary Testing; Complete Time: 19:48 EDMS 12/07 19:14 Order name: SARS-COV-2 Antigen Rapid; Complete Time: 19:48 EDMS 12/07 18:51 Order name: XRAY Chest (1 view); Complete Time: 20:20 cp 12/07 18:51 Order name: CT Head Brain wo Cont; Complete Time: 20:20 cp 05/18 18:51 Order name: EKG; Complete Time: 18:52 cp 12/07 18:51 Order name: Cardiac monitoring; Complete Time: 19:10 12/07 18:51 Order name: EKG - Nurse/Tech; Complete Time: 19:10 cp 18 18:51 Order name: IV Saline Lock; Complete Time: 19:10 cp 0518 18:51 Order name: Labs collected and sent; Complete Time: 19:10 12/07 18:51 Order name: O2 Per Protocol; Complete Time: 19:10 0518 18:51 Order name: O2 Sat Monitoring; Complete Time: 19:10 12/07 18:51 Order name: Accucheck Blood Glucose; Complete Time: 19:10 cp EC:10 Rate is 98 beats/min. Rhythm is regular. UT interval is normal. QRS interval is normal. cp QT interval is normal. T waves are Inverted in lead aVR. Interpreted by me. Reviewed by me. Administered Medications: 20:08 Drug: metoCLOPramide IVP 10 mg Route: IVP; Site: right antecubital; lg3 21:10 Follow up: Response: No adverse reaction lg3 20:08 Drug: Decadron - Dexamethasone IVP 10 mg Route: IVP; Site: right antecubital; lg3 21:10 Follow up: Response: No adverse reaction lg3 20:08 Drug: Ketorolac IVP 15 mg Route: IVP; Site: right antecubital; lg3 21:10 Follow up: Response: No adverse reaction lg3 20:22 Drug: NS 0.9% IV 1000 ml Route: IV; Rate: 1 bolus; Site: right antecubital; lg3 21:10 Follow up: IV Status: Completed infusion; IV Intake: 1000ml lg3 21:06 Drug: Clindamycin IVPB 900 mg Route: IVPB; Infused Over: 30 mins; Site: right lg3 antecubital; 21:39 Follow up: Response: No adverse reaction; IV Status: Completed infusion; IV Intake: [id number] Disposition Summary: 12/07/22 21:04 Discharge Ordered Location: Home cp Problem: new cp Symptoms: have improved cp Condition: Stable cp Diagnosis - Disorder of teeth and supporting structures, unspecified cp - Other acute sinusitis cp - Diabetes mellitus due to underlying condition with hyperglycemia cp - Hypertensive heart disease without heart failure cp Followup: cp - With: Yoni Gomez DDS - When: 2 - 3 days - Reason: dental abscess Discharge Instructions: - Discharge Summary Sheet cp - Dental Abscess cp - Hyperglycemia cp - Hypertension, Adult cp - Daily Diabetes Mellitus Record cp - Blood Glucose Monitoring, Adult cp - Diabetes Mellitus and Nutrition, Adult cp - Aspirin and Your Heart cp - Form - Blood Pressure Record Sheet cp - How to Take Your Blood Pressure cp Forms: - Medication Reconciliation Form cp - Thank You Letter cp - Antibiotic Education cp - Prescription Opioid Use cp Prescriptions: - Clindamycin HCl 300 mg Oral Capsule - take 1 capsule by ORAL route every 6 hours for 10 days; 40 capsule; Refills: 0, cp Product Selection Permitted - Metformin 500 mg Oral Tablet - take 1 tablet by ORAL route once daily for 7 days Then take 1 tablet with cp morning meals AND evening meals; 60 tablet; Refills: 0, Product Selection Permitted - Lisinopril 20 mg Oral Tablet - take 1 tablet by ORAL route once daily; 20 tablet; Refills: 0, Product cp Selection Permitted Signatures: Dispatcher [employer] EDDylan Lamar MD MD cha Page, Corey, PA PA cp Emmy Kauffman, RN RN lg3 Gloria Renee RN RN vg1 Corrections: (The following items were deleted from the chart) 19:14 18:52 SARS-COV-2 RT PCR+[id number] ordered. ALEJANDRODC BASILIO
--- NOTE | 2022-12-07 21:04 | ER ---
Nurse's Notes [facility] Name: Bucky Norton Jr Age: 37 yrs Sex: Male : 1985 Arrival Date: 12/07/2022 Time: 18:28 Bed 19 Private MD: Diagnosis: Disorder of teeth and supporting structures, unspecified;Other acute sinusitis;Diabetes mellitus due to underlying condition with hyperglycemia;Hypertensive heart disease without heart failure Presentation: 12/07 18:41 Chief complaint: Patient states: body aches, headaches since yesterday, denies N/V. vg1 States hasnt taken BP or DM medications for "months". Coronavirus screen: Vaccine status: Patient reports being unvaccinated. Client denies travel out of the [place] in the last 14 days. Ebola Screen: Patient negative for fever greater than or equal to 101.5 degrees Fahrenheit, and additional compatible Ebola Virus Disease symptoms Patient denies exposure to infectious person. Patient denies travel to an Ebola-affected area in the 21 days before illness onset. Initial Sepsis Screen: Does the patient meet any 2 criteria? HR > 90 bpm. Does the patient have a suspected source of infection? No. Patient's initial sepsis screen is negative. Risk Assessment: Do you want to hurt yourself or someone else? Patient reports no desire to harm self or others. Onset of symptoms was December 06, 2022. 18:41 Method Of Arrival: Ambulatory [facility] 18:41 Acuity: RICHY 3 vg1 Triage Assessment: 18:45 Headache History: The patient has had previous headaches and this one is different than 1 previous episodes. General: Appears in no apparent distress. uncomfortable, Behavior is calm, cooperative. Pain: Complains of pain in head, body Pain currently is 7 out of 10 on a pain scale. Pain began 1 day ago. Also complains of no other associated symptoms. Neuro: Level of Consciousness is awake, alert, obeys commands, Oriented to person, place, time, situation, Reports headache occipital area. Cardiovascular: Patient's skin is warm and dry. Historical: - Home Meds: 18:45 Metformin Oral [Active]; vg1 - PMHx: 18:45 Diabetes - NIDDM; Hypertension; neuropathy; vg1 - Immunization history:: Client reports having NOT received the Covid vaccine. - Social history:: Smoking status: Patient reports the use of cigarette tobacco products, smokes one-half pack cigarettes per day. Screenin:32 [facility] ED Fall Risk Assessment (Adult) History of falling in the last 3 months, lg3 including since admission No falls in past 3 months (0 pts). Abuse screen: Denies threats or abuse. Denies injuries from another. Nutritional screening: No deficits noted. Tuberculosis screening: No symptoms or risk factors identified. Assessment: 19:32 General: Appears in no apparent distress. uncomfortable, Behavior is calm, cooperative. lg3 Pain: Complains of pain in generalized body aches. Neuro: No deficits noted. Still Agitation-Sedation Scale (RASS): 0 - Alert and Calm Level of Consciousness is awake, alert, obeys commands, Oriented to person, place, time, situation. Cardiovascular: No deficits noted. Denies chest pain, shortness of breath, Capillary refill < 3 seconds Clubbing of nail beds is absent JVD is absent Patient's skin is warm and dry. Respiratory: No deficits noted. Airway is patent Trachea midline Respiratory effort is even, unlabored, Respiratory pattern is regular, symmetrical. GI: No deficits noted. Abdomen is round non-distended, Patient currently denies abdominal pain, nausea, vomiting. : No deficits noted. No signs and/or symptoms were reported regarding the genitourinary system. EENT: No deficits noted. No signs and/or symptoms were reported regarding the EENT system. Derm: No deficits noted. No signs and/or symptoms reported regarding the dermatologic system. Skin is intact, is healthy with good turgor, Skin is dry, Skin is normal, Skin temperature is warm. Musculoskeletal: No deficits noted. Circulation, motion, and sensation intact. Range of motion: intact in all extremities. 21:39 Reassessment: Patient appears in no apparent distress at this time. No changes from lg3 previously documented assessment. Patient and/or family updated on plan of care and expected duration. Pain level reassessed. Patient is alert, oriented x 3, equal unlabored respirations, skin warm/dry/pink. Patient states symptoms have improved. Vital Signs: 18:41 BP 152 / 109; Pulse 103; Resp 16; Temp 98.8(O); Pulse Ox 99% ; Weight 113.4 kg; Height vg1 6 ft. 0 in. ; 19:32 BP 147 / 87; Pulse 101; Resp 23 S; Pulse Ox 97% on R/A; lg3 21:40 BP 129 / 83; Pulse 78; Resp 20 S; Pulse Ox 98% on R/A; lg3 18:41 Body Mass Index 33.91 (113.40 kg, 182.88 cm) vg1 ED Course: 18:31 Patient arrived in ED. ts1 18:31 Dylan Pascal PA is PHCP. cp 18:31 Dylan Bettencourt MD is Attending Physician. cp 18:45 Triage completed. vg1 18:45 Arm band placed on. vg1 18:52 Sandie Johns, JULIA is Primary Nurse. eh3 19:10 Influenza Screen (a \\T\\ B) Sent. eh3 19:12 Inserted saline lock: 20 gauge in right antecubital area, using aseptic technique. vg1 ,using aseptic technique. completed by chassis driver. 19:16 CT Head Brain wo Cont In Process Unspecified. EDMS 19:22 XRAY Chest (1 view) In Process Unspecified. EDMS 19:32 Patient has correct armband on for positive identification. Fall risk band placed. Bed lg3 in low position. Call light in reach. Side rails up X 1. Client placed on continuous cardiac and pulse oximetry monitoring. NIBP monitoring applied. environmental monitoring technician on. Door closed. Noise minimized. Warm blanket given. 21:02 Yoni Gomez DDS is Referral Physician. cp 21:41 No provider procedures requiring assistance completed. IV discontinued, intact, lg3 bleeding controlled, No redness/swelling at site. Pressure dressing applied. Administered Medications: 20:08 Drug: metoCLOPramide IVP 10 mg Route: IVP; Site: right antecubital; lg3 21:10 Follow up: Response: No adverse reaction lg3 20:08 Drug: Decadron - Dexamethasone IVP 10 mg Route: IVP; Site: right antecubital; lg3 21:10 Follow up: Response: No adverse reaction lg3 20:08 Drug: Ketorolac IVP 15 mg Route: IVP; Site: right antecubital; lg3 21:10 Follow up: Response: No adverse reaction lg3 20:22 Drug: NS 0.9% IV 1000 ml Route: IV; Rate: 1 bolus; Site: right antecubital; lg3 21:10 Follow up: IV Status: Completed infusion; IV Intake: 1000ml lg3 21:06 Drug: Clindamycin IVPB 900 mg Route: IVPB; Infused Over: 30 mins; Site: right lg3 antecubital; 21:39 Follow up: Response: No adverse reaction; IV Status: Completed infusion; IV Intake: [id number] Medication: 21:41 VIS not applicable for this client. lg3 Intake: 21:10 IV: 1000ml; Total: 1000ml. lg3 21:39 IV: 75ml; Total: 1075ml. lg3 Outcome: 21:04 Discharge ordered by . chantale 21:41 Discharged to home ambulatory. lg3 21:41 Condition: stable 21:41 Discharge instructions given to patient, Instructed on discharge instructions, follow up and referral plans. medication usage, Demonstrated understanding of instructions, follow-up care, medications, Prescriptions given X 3. 21:41 Patient left the ED. lg3 Signatures: Dispatcher [employer] EDMS Dylan Pascal PA PA cp Gibson, Lacie RN JULIA lg3 Gloria Renee RN JULIA 1 Sandie Johns RN RN 3 Ashleigh Camacho PAS PAS ts1 Corrections: (The following items were deleted from the chart) 18:46 18:41 Chief complaint: Patient states: body aches, headaches since yesterday, denies vg1 N/V vg1 19:14 19:10 SARS-COV-2 RT PCR+[email or web address] drawn and sent. [facility] EDAK 21:39 21:39 Response: No adverse reaction; IV Status: Completed infusion; IV Intake: 55ml lg3 lg3
[2022-12-07] MEDS ORDERED: CLINDAMYCIN 600MG/D5W 50 ML IV ONE ×2 (21:08→21:12)
[2022-12-07 21:52] VITALS: TEMP 98.8
[2022-12-07 21:55] VITALS: BP 129/83; O2SAT 98
--- NOTE | 2022-12-08 13:25 | EKG ---
Test Date: 2022-12-07 Test Time: 19:03:39 Provider Enrollment Specialist: BOBBY MEASUREMENT RESULTS: Intervals: Rate: 98 CA: 146 QRSD: 84 QT: 368 QTc: 469 [place]: P: 62 CA: 146 QRS: 12 T: 24 INTERPRETIVE STATEMENTS: Normal sinus rhythm Normal ECG No previous ECG available for comparison Electronically Signed On 12-08-22 13:25:23 CDT by Gerson Day
== END 2022-12-07 21:41 | disposition home or self-care (01) ==
LOC: ER 18:28
DX: J01.80 Other acute sinusitis (principal); E11.65 Type 2 diabetes mellitus with hyperglycemia; I11.9 Hypertensive heart disease without heart failure; K08.9 Disorder of teeth and supporting structures, unspecified; F17.210 Nicotine dependence, cigarettes, uncomplicated; Z20.822 Contact with and (suspected) exposure to COVID-19
CPT/HCPCS: 96365; 96361; 93005; 85025; 80048; 36415; 83735; 82947; 80076; 84484; 87804 ×2; 70450; 71045; 96375; 99285; 87811; J2765; J1100; J7030

== ENCOUNTER 2023-03-16 08:00 | Emergency (ER) | payer OTHER ==
[2023-03-16] MEDS ORDERED: IBUPROFEN 400 MG TAB ONE (08:37)
[2023-03-16] MEDS ORDERED: IBUPROFEN 200 MG TAB PO ONE (08:37)
[2023-03-16] MEDS ORDERED: ACETAMINOPHEN 500 MG TAB ONE (08:37)
[2023-03-16 09:28] LABS: SARS-CoV-2 Antigen Rapid Res Negative (Negative)
--- NOTE | 2023-03-16 09:36 | ER ---
[facility] Name: Bucky [facility] Jr Age: 38 yrs Sex: Male : 1985 Arrival Date: 03/16/2023 Time: 08:00 Bed 14 Private MD: Diagnosis: Acute upper respiratory infection, unspecified Presentation: 03/16 08:10 Chief complaint: Sinus congestion, headache, and sore throat x 2 days, diarrhea today. hb Coronavirus screen: Client presents with at least one sign or symptom that may indicate coronavirus-19. Provider contacted for isolation considerations. Ebola Screen: No symptoms or risks identified at this time. Initial Sepsis Screen: Does the patient meet any 2 criteria? No. Patient's initial sepsis screen is negative. Does the patient have a suspected source of infection? No. Patient's initial sepsis screen is negative. Risk Assessment: Do you want to hurt yourself or someone else? Patient reports no desire to harm self or others. Onset of symptoms was March 15, 2023. 08:10 Method Of Arrival: Ambulatory hb 08:10 Acuity: RICHY 4 hb Triage Assessment: 09:48 General: Appears in no apparent distress. db Historical: - Allergies: 08:11 No Known Allergies; hb - PMHx: 08:11 Diabetes - NIDDM; Hypertension; neuropathy; hb - Immunization history:: Adult Immunizations up to date. - Social history:: Smoking status: Patient reports the use of cigarette tobacco products, smokes one pack cigarettes per day. Screenin:11 [facility] ED Fall Risk Assessment (Adult) History of falling in the last 3 months, db including since admission No falls in past 3 months (0 pts) Confusion or Disorientation No (0 pts) Intoxicated or Sedated No (0 pts) Impaired Gait No (0 pts) Mobility Assist Device Used No (0 pt) Altered Elimination No (0 pt) Score/Fall Risk Level 0 - 2 = Low Risk Oriented to surroundings, Maintained a safe environment. Abuse screen: Denies threats or abuse. Denies injuries from another. Nutritional screening: No deficits noted. Tuberculosis screening: No symptoms or risk factors identified. Assessment: 08:11 Reassessment: Patient appears in no apparent distress at this time. Patient and/or db family updated on plan of care and expected duration. Pain level reassessed. Patient is alert, oriented x 3, equal unlabored respirations, skin warm/dry/pink. Congestion with flu like symptoms. states symptoms started yesterday. General: Appears in no apparent distress. comfortable, Behavior is calm, cooperative. Pain: Complains of pain in face. Neuro: Level of Consciousness is awake, alert, obeys commands, Oriented to person, place, time, situation, Speech is normal. Respiratory: Airway is patent Respiratory effort is even, unlabored, Respiratory pattern is regular, symmetrical. 08:13 Respiratory: Reports cough that is productive. EENT: db 09:04 Reassessment: Patient appears in no apparent distress at this time. Patient and/or db family updated on plan of care and expected duration. Pain level reassessed. Patient is alert, oriented x 3, equal unlabored respirations, skin warm/dry/pink. PT IS SLEEPING. General: Appears in no apparent distress. comfortable. 09:48 Reassessment: Patient appears in no apparent distress at this time. Patient and/or db family updated on plan of care and expected duration. Pain level reassessed. Patient is alert, oriented x 3, equal unlabored respirations, skin warm/dry/pink. Patient states feeling better. General: Appears in no apparent distress. Vital Signs: 08:10 BP 152 / 112; Pulse 77; Resp 18; Temp 98.6(O); Pulse Ox 97% on R/A; Weight 108.86 kg; hb Height 6 ft. 0 in. ; Pain 6/10; 08:11 BP 154 / 112; Pulse 100; Resp 16; Pulse Ox 99% on R/A; db 08:30 BP 141 / 102; Pulse 81; Resp 16; Pulse Ox 92% ; db 09:00 BP 141 / 90; Pulse 80; Resp 16; Pulse Ox 95% on R/A; db 09:30 BP 136 / 97; Pulse 71; Resp 16; Pulse Ox 100% on R/A; db 08:10 Body Mass Index 32.55 (108.86 kg, 182.88 cm) hb 08:10 Pain Scale: Adult hb 08:30 SLEEPING db ED Course: 08:02 Patient arrived in ED. mr 08:03 Jess Burciaga PA-C is PHCP. sb4 08:03 Shivam Marie MD is Attending Physician. sb4 08:11 Molly Taylor, JULIA is Primary Nurse. db 08:11 Triage completed. hb 08:11 Arm band placed on. hb 08:30 COVID swab sent to lab. Flu and/or RSV swab sent to lab. db 09:00 Patient has correct armband on for positive identification. Bed in low position. Call db light in reach. Side rails up X 1. Provided Education on: DISCHARGE. 09:00 No provider procedures requiring assistance completed. Patient did not have IV access db during this emergency room visit. Administered Medications: 08:30 Drug: Acetaminophen PO 1000 mg Route: PO; db 09:50 Follow up: Response: No adverse reaction db 08:30 Drug: Ibuprofen PO 600 mg Route: PO; db 09:50 Follow up: Response: No adverse reaction db Medication: 09:00 VIS not applicable for this client. db Outcome: 09:00 Discharged to home ambulatory. db 09:00 Condition: stable 09:00 Discharge instructions given to patient, Instructed on discharge instructions, follow up and referral plans. Prescriptions given X 2. 09:34 Discharge ordered by MD. sb4 09:50 Patient left the ED. db Signatures: Joy Pollard Heather, RN RN Molly Perez, RN RN Jess Leone, PA-C PA-C sb4 Corrections: (The following items were deleted from the chart) 08:13 08:11 Reassessment: Patient appears in no apparent distress at this time. Patient db and/or family updated on plan of care and expected duration. Pain level reassessed. Patient is alert, oriented x 3, equal unlabored respirations, skin warm/dry/pink. Congestion with flu like symptoms. states symptoms started yesterday db
--- NOTE | 2023-03-16 09:36 | EDPHYS ---
Physician Documentation [facility] Name: Bucky Norton Jr Age: 38 yrs Sex: Male : 1985 Arrival Date: 03/16/2023 Time: 08:00 Bed 14 Private MD: ED Physician Shivam Marie HPI: 03/16 08:25 This 38 yrs old Black Male presents to ER via Ambulatory with complaints of Flu sb4 Symptoms. 08:25 Onset: The symptoms/episode began/occurred yesterday. Associated signs and symptoms: sb4 Pertinent positives: congestion, cough, diarrhea, headache, nasal discharge, sore throat, Pertinent negatives: abdominal pain, chest pain, shortness of breath, vomiting, wheezing. Modifying factors: The patient symptoms are alleviated by nothing, the patient symptoms are aggravated by nothing. The patient has not experienced similar symptoms in the past, but co-worker has similar symptoms. The patient has not recently seen a physician. Historical: - Allergies: 08:11 No Known Allergies; hb - PMHx: 08:11 Diabetes - NIDDM; Hypertension; neuropathy; hb - Immunization history:: Adult Immunizations up to date. - Social history:: Smoking status: Patient reports the use of cigarette tobacco products, smokes one pack cigarettes per day. ROS: 08:25 Cardiovascular: Negative for chest pain, palpitations, and edema. sb4 08:25 Constitutional: Positive for fatigue, malaise. 08:25 ENT: Positive for nasal discharge, sinus congestion, sore throat. 08:25 Respiratory: Positive for cough. 08:25 Neuro: Positive for headache. 08:25 All other systems are negative. Exam: 08:25 Head/Face: Normocephalic, atraumatic. Cardiovascular: Regular rate and rhythm with a sb4 normal S1 and S2. Abdomen/GI: Soft, non-tender, no distension. Skin: Warm, dry with normal turgor. Normal color with no rashes, no lesions, and no evidence of cellulitis. MS/ Extremity: Pulses equal, no cyanosis. Neurovascular intact. Full, normal range of motion. Neuro: Awake and alert, GCS 15, oriented to person, place, time, and situation. Cranial nerves II-XII grossly intact. Motor strength 5/5 in all extremities. Sensory grossly intact. Cerebellar exam normal. Normal gait. 08:25 Constitutional: The patient appears alert, awake, uncomfortable. 08:25 Eyes: Conjunctiva: tearing noted, bilaterally. 08:25 ENT: Exam is negative for ear discharge, nasal discharge, sinus tenderness, enlarged tonsils, exudate. 08:25 Respiratory: the patient does not display signs of respiratory distress, Respirations: normal, Breath sounds: wheezing: that is mild, is scattered. Vital Signs: 08:10 BP 152 / 112; Pulse 77; Resp 18; Temp 98.6(O); Pulse Ox 97% on R/A; Weight 108.86 kg; hb Height 6 ft. 0 in. ; Pain 6/10; 08:11 BP 154 / 112; Pulse 100; Resp 16; Pulse Ox 99% on R/A; db 08:30 BP 141 / 102; Pulse 81; Resp 16; Pulse Ox 92% ; db 09:00 BP 141 / 90; Pulse 80; Resp 16; Pulse Ox 95% on R/A; db 09:30 BP 136 / 97; Pulse 71; Resp 16; Pulse Ox 100% on R/A; db 08:10 Body Mass Index 32.55 (108.86 kg, 182.88 cm) hb 08:10 Pain Scale: Adult hb 08:30 SLEEPING db MDM: 08:03 Patient medically screened. sb4 08:25 Differential diagnosis: viral Infection, bacterial infection, URI, bronchitis. sb4 09:33 Data reviewed: vital signs, nurses notes, lab test result(s), and as a result, I will sb4 discharge patient. Care significantly affected by the following chronic conditions: Diabetes, Hypertension. Counseling: I had a detailed discussion with the patient and/or guardian regarding the historical points, exam findings, and any diagnostic results supporting the discharge/admit diagnosis, lab results, to return to the emergency department if symptoms worsen or persist or if there are any questions or concerns that arise at home. Medication response: tylenol and ibuprofen- symptoms improved. 03/16 08:12 Order name: Flu; Complete Time: :33 sb4 03/16 08:12 Order name: SARS RAPID; Complete Time: :33 sb4 Administered Medications: 08:30 Drug: Acetaminophen PO 1000 mg Route: PO; db 09:50 Follow up: Response: No adverse reaction db 08:30 Drug: Ibuprofen PO 600 mg Route: PO; db 09:50 Follow up: Response: No adverse reaction db Disposition: 10:15 Co-signature as Attending Physician, Shivam Marie MD I reviewed the patient's care rt provided by the Advanced Practice Provider and agree with the diagnosis and treatment plan. Disposition Summary: 03/16/23 09:34 Discharge Ordered Location: Home sb4 Problem: new sb4 Symptoms: have improved sb4 Condition: Stable sb4 Diagnosis - Acute upper respiratory infection, unspecified sb4 Followup: sb4 - With: Private Physician - When: As needed - Reason: Recheck today's complaints, Continuance of care, Re-evaluation by your physician Discharge Instructions: - Discharge Summary Sheet sb4 - Upper Respiratory Infection, Adult, [id number] sb4 Forms: - Work release form sb4 - Medication Reconciliation Form sb4 - Thank You Letter sb4 - Antibiotic Education sb4 - Prescription Opioid Use sb4 - Patient Portal Instructions sb4 - Leadership Thank You Letter sb4 Prescriptions: - Augmentin 875-125 mg Oral Tablet - take 1 tablet by ORAL route every 12 hours for 10 days; 20 tablet; Refills: 0, sb4 Product Selection Permitted - Medrol (Medhat) 4 mg Oral Tablets, Dose Pack - take 1 tablet by ORAL route as directed - follow package instructions; 1 sb4 packet; Refills: 0, Product Selection Permitted Signatures: Dispatcher [employer] EDSuma Diaz, JULIA RN Molly Perez, JULIA RN Jess Leone, PA-C PAReeseC sb4 Shivam Marie MD MD rt
[2023-03-16 09:55] VITALS: TEMP 98.6
[2023-03-16 10:00] VITALS: BP 136/97; O2SAT 100
== END 2023-03-16 09:50 | disposition home or self-care (01) ==
LOC: ER 08:00
DX: J06.9 Acute upper respiratory infection, unspecified (principal); F17.210 Nicotine dependence, cigarettes, uncomplicated; Z20.822 Contact with and (suspected) exposure to COVID-19
CPT/HCPCS: 36415; 87804; 87811; 99284

== ENCOUNTER 2023-05-17 08:07 | Emergency (ER) | payer OTHER ==
--- NOTE | 2023-05-17 08:21 | EDPHYS ---
Physician Documentation [facility] Name: Bucky Norton Jr Age: 38 yrs Sex: Male : 1985 Arrival Date: 05/17/2023 Time: 08:07 Bed 11 Private MD: ED Physician Harmony Bernal HPI: 05/17 09:39 This 38 yrs old Black Male presents to ER via Ambulatory with complaints of Body aches, snw Fatigue. 09:39 The patient has not experienced similar symptoms in the past, but family has similar snw symptoms, Children with influenza last week. Historical: - Allergies: 08:14 No Known Allergies; ll1 - PMHx: 08:14 Hypertension; Diabetes - NIDDM; neuropathy; ll1 - PSHx: 08:14 None; ll1 - Immunization history:: Adult Immunizations up to date. - Social history:: Smoking status: Patient reports the use of cigarette tobacco products, smokes one pack cigarettes per day. ROS: 09:37 Constitutional: Negative for fever, chills, and weight loss, Eyes: Negative for injury, snw pain, redness, and discharge, ENT: Negative for injury, pain, and discharge, Neck: Negative for injury, pain, and swelling, Cardiovascular: Negative for chest pain, palpitations, and edema, Respiratory: Negative for shortness of breath, cough, wheezing, and pleuritic chest pain, Abdomen/GI: Negative for abdominal pain, nausea, vomiting, diarrhea, and constipation, Back: Negative for injury and pain, : Negative for injury, bleeding, discharge, and swelling, Skin: Negative for injury, rash, and discoloration, 09:37 MS/extremity: Positive for pain, of the generalized, 09:37 Neuro: Positive for fatigue, malaise, Exam: 09:37 Head/Face: Normocephalic, atraumatic. Eyes: Pupils equal round and reactive to light, snw extra-ocular motions intact. Lids and lashes normal. Conjunctiva and sclera are non-icteric and not injected. Cornea within normal limits. Periorbital areas with no swelling, redness, or edema. 09:37 Neck: Trachea midline, no thyromegaly or masses palpated, and no cervical lymphadenopathy. Supple, full range of motion without nuchal rigidity, or vertebral point tenderness. No Meningismus. Chest/axilla: Normal chest wall appearance and motion. Nontender with no deformity. No lesions are appreciated. Cardiovascular: Regular rate and rhythm with a normal S1 and S2. No gallops, murmurs, or rubs. Normal PMI, no JVD. No pulse deficits. Respiratory: Lungs have equal breath sounds bilaterally, clear to auscultation and percussion. No rales, rhonchi or wheezes noted. No increased work of breathing, no retractions or nasal flaring. Abdomen/GI: Soft, non-tender, with normal bowel sounds. No distension or tympany. No guarding or rebound. No evidence of tenderness throughout. Back: No spinal tenderness. No costovertebral tenderness. Full range of motion. Skin: Warm, dry with normal turgor. Normal color with no rashes, no lesions, and no evidence of cellulitis. MS/ Extremity: Pulses equal, no cyanosis. Neurovascular intact. Full, normal range of motion. Neuro: Awake and alert, GCS 15, oriented to person, place, time, and situation. Cranial nerves II-XII grossly intact. Motor strength 5/5 in all extremities. Sensory grossly intact. Cerebellar exam normal. Normal gait. Psych: Awake, alert, with orientation to person, place and time. Behavior, mood, and affect are within normal limits. 09:37 Constitutional: The patient appears alert, awake, uncomfortable, 09:37 ENT: External ear(s): are unremarkable, Ear canal(s): are normal, TM's: erythema, that is mild, bilaterally, Nose: is normal, Mouth: is normal, Posterior pharynx: erythema, that is moderate, Voice: is normal, Vital Signs: 08:14 BP 168 / 94; Pulse 89; Resp 17; Temp 97.8; Pulse Ox 99% ; Weight 120.2 kg; Height 6 ft. ll1 0 in. ; Pain 6/10; 08:14 Body Mass Index 35.94 (120.20 kg, 182.88 cm) ll1 08:14 Pain Scale: Adult ll1 MDM: 08:16 Patient medically screened. snw 09:39 Differential diagnosis: viral Infection, bacterial infection. Data reviewed: vital snw signs, nurses notes. I considered the following discharge prescriptions or medication management in the emergency department Medications were administered in the Emergency Department. See MAR. Counseling: I had a detailed discussion with the patient and/or guardian regarding the historical points, exam findings, and any diagnostic results supporting the discharge/admit diagnosis, the need for outpatient follow up, for definitive care, to return to the emergency department if symptoms worsen or persist or if there are any questions or concerns that arise at home. Special discussion: Based on the history and exam findings, there is no indication for further emergent testing or inpatient evaluation. I discussed with the patient/guardian the need to see the primary care provider for further evaluation of the symptoms. Administered Medications: 08:35 Drug: Lortab PO Liquid 15 ml PO once Route: PO; ll1 09:39 Follow up: Response: No adverse reaction ll1 08:35 Drug: Aspirin PO 325 mg PO once Route: PO; ll1 09:39 Follow up: Response: No adverse reaction ll1 08:35 Drug: ZyrTEC - Cetirizine PO 10 mg PO once Route: PO; ll1 09:39 Follow up: Response: No adverse reaction ll1 08:35 Drug: Famotidine PO 20 mg PO once Route: PO; ll1 09:39 Follow up: Response: No adverse reaction ll1 08:41 Drug: Decadron - Dexamethasone IVP 10 mg IVP once; in Lortab {Note: Given PO in ll1 Lortab.} Route: IVP; Site: Other; 09:39 Follow up: Response: No adverse reaction ll1 Disposition Summary: 05/17/23 08:20 Discharge Ordered Notes: Location: Home snw Condition: Stable snw Diagnosis - Viral infection, unspecified snw Followup: snw - With: Emergency Department - When: As needed - Reason: Worsening of condition Followup: snw - With: Private Physician - When: 2 - 3 days - Reason: Recheck today's complaints, Continuance of care, Re-evaluation by your physician Discharge Instructions: - Viral Respiratory Infection snw - Rehydration, Adult snw - Discharge Summary Sheet ll1 Forms: - Medication Reconciliation Form snw - Thank You Letter snw - Antibiotic Education snw - Prescription Opioid Use snw - Patient Portal Instructions snw - Leadership Thank You Letter snw - Work release form ll1 Prescriptions: - Tramadol 50 mg Oral Tablet - take 1 tablet ORAL route every 8 hours as needed; 12 tablet; Refills: 0, snw Product Selection Permitted - promethazine 25 mg Oral Tablet - take 1 tablet ORAL route every 6 hours As needed; 20 tablet; Refills: 0, snw Product Selection Permitted Signatures: Sherie Dowell FNP-C FNP-Rosanna Ashby, RN RN ll1
--- NOTE | 2023-05-17 08:21 | ER ---
Nurse's Notes [facility] Name: Bucky Norton Jr Age: 38 yrs Sex: Male : 1985 Arrival Date: 05/17/2023 Time: 08:07 Bed 11 Private MD: Diagnosis: Viral infection, unspecified Presentation: 05/17 08:14 Chief complaint: Patient states: Body aches, fatigue for 2 days. No known fever. Guero ll1 N/V/D. Kids had the flu last week. Coronavirus screen: Vaccine status: Patient reports being unvaccinated. Client denies travel out of the [place] in the last 14 days. fatigue, muscle pain, Client presents with at least one sign or symptom that may indicate coronavirus-19. Standard/surgical mask placed on the client. Ebola Screen: Patient denies travel to an Ebola-affected area in the 21 days before illness onset. Initial Sepsis Screen: Does the patient meet any 2 criteria? No. Patient's initial sepsis screen is negative. Does the patient have a suspected source of infection? No. Patient's initial sepsis screen is negative. Risk Assessment: Do you want to hurt yourself or someone else? Patient reports no desire to harm self or others. Onset of symptoms was May 16, 2023. 08:14 Method Of Arrival: Ambulatory ll1 08:14 Acuity: RICHY 4 ll1 Triage Assessment: 08:15 General: Appears ill, Behavior is calm, cooperative, appropriate for age. General: ll1 Reports feeling ill for fatigue for. Pain: Complains of pain in body Quality of pain is described as aching. EENT: nasal congestion noted. Musculoskeletal: Reports body aches. Historical: - Allergies: 08:14 No Known Allergies; ll1 - PMHx: 08:14 Hypertension; Diabetes - NIDDM; neuropathy; ll1 - PSHx: 08:14 None; ll1 - Immunization history:: Adult Immunizations up to date. - Social history:: Smoking status: Patient reports the use of cigarette tobacco products, smokes one pack cigarettes per day. Screenin:52 [facility] ED Fall Risk Assessment (Adult) Score/Fall Risk Level 0 - 2 = Low Risk ll1 Oriented to surroundings, Maintained a safe environment, Educated pt \T\ family on fall prevention, incl call for assistance when getting out of bed, Hourly rounding (assess needs \T\ fall precautionary measures) done. Abuse screen: Denies threats or abuse. Nutritional screening: No deficits noted. Tuberculosis screening: No symptoms or risk factors identified. Assessment: 08:52 Reassessment: No changes from previously documented assessment. Patient and/or family ll1 updated on plan of care and expected duration. Pain level reassessed. Patient is alert, oriented x 3, equal unlabored respirations, skin warm/dry/pink. Vital Signs: 08:14 BP 168 / 94; Pulse 89; Resp 17; Temp 97.8; Pulse Ox 99% ; Weight 120.2 kg; Height 6 ft. ll1 0 in. ; Pain 6/10; 08:14 Body Mass Index 35.94 (120.20 kg, 182.88 cm) ll1 08:14 Pain Scale: Adult ll1 ED Course: 08:11 Patient arrived in ED. rg4 08:15 Sherie Dowell F[facility]-C [facility] snw 08:15 Harmony Bernal MD is Attending Physician. snw 08:15 Triage completed. ll1 08:15 Arm band placed on. ll1 08:24 Rosanna Elliott, JULIA is Primary Nurse. ll1 08:52 Patient has correct armband on for positive identification. Call light in reach. ll1 Provided Education on: n/a. 08:52 No provider procedures requiring assistance completed. Patient did not have IV access ll1 during this emergency room visit. Administered Medications: 08:35 Drug: Lortab PO Liquid 15 ml PO once Route: PO; ll1 09:39 Follow up: Response: No adverse reaction ll1 08:35 Drug: Aspirin PO 325 mg PO once Route: PO; ll1 09:39 Follow up: Response: No adverse reaction ll1 08:35 Drug: ZyrTEC - Cetirizine PO 10 mg PO once Route: PO; ll1 09:39 Follow up: Response: No adverse reaction ll1 08:35 Drug: Famotidine PO 20 mg PO once Route: PO; ll1 09:39 Follow up: Response: No adverse reaction ll1 08:41 Drug: Decadron - Dexamethasone IVP 10 mg IVP once; in Lortab {Note: Given PO in ll1 Lortab.} Route: IVP; Site: Other; 09:39 Follow up: Response: No adverse reaction ll1 Medication: 08:52 VIS not applicable for this client. ll1 Outcome: 08:20 Discharge ordered by MD. shah 08:52 Patient left the ED. ll1 08:52 Discharged to home ambulatory, ll1 08:52 Condition: stable 08:52 Discharge instructions given to patient, Instructed on discharge instructions, follow up and referral plans. no driving heavy equipment, medication usage, Demonstrated understanding of instructions, follow-up care, medications, Prescriptions given X 2, Signatures: Sherie Dowell, HOUSE CARPENTER HELPER-C HOUSE CARPENTER HELPER-Cait Stanton rg4 Rosanna Elliott, RN RN ll1
[2023-05-17] MEDS ORDERED: CETIRIZINE HCL 5 MG TABLET ONE (08:40)
[2023-05-17] MEDS ORDERED: HYDROCOD 2.5mg-ACETAMIN 108mg/5mL Soln ONE (08:40)
[2023-05-17] MEDS ORDERED: dexAMETHasone 10 MG/ML VIAL ONE (08:40)
[2023-05-17] MEDS ORDERED: FAMOTIDINE 20 MG TAB ONE (08:41)
[2023-05-17] MEDS ORDERED: ASPIRIN 325 MG TAB ONE (08:41)
[2023-05-17 16:27] VITALS: BP 168/94; TEMP 97.8; O2SAT 99
== END 2023-05-17 08:52 | disposition home or self-care (01) ==
LOC: ER 08:07
DX: B34.9 Viral infection, unspecified (principal); I10 Essential (primary) hypertension; E11.9 Type 2 diabetes mellitus without complications; F17.210 Nicotine dependence, cigarettes, uncomplicated
CPT/HCPCS: 96374; 99284; J1100

== ENCOUNTER 2023-11-07 12:18 | Emergency (ER) | payer OTHER ==
[2023-11-07] MEDS ORDERED: AMOX/K CLAV 875 MG TAB ONE (12:56)
[2023-11-07] MEDS ORDERED: KETOROLAC 30 MG/ML INJ ONE (12:56)
--- NOTE | 2023-11-07 13:03 | ER ---
Nurse's Notes [facility] Name: Bucky Norton Jr Age: 38 yrs Sex: Male : 1985 Arrival Date: 11/07/2023 Time: 12:18 Bed 10 Private MD: Diagnosis: Dental pain, dental abscess Presentation: 11/06 12:23 Chief complaint: Patient states: right side of face started swelling yesterday, up into ko1 right eye. No dental problems prior to this. Patient states it is more on the inside of the right upper teeth area. Coronavirus screen: At this time, the client does not indicate any symptoms associated with coronavirus-19. Ebola Screen: No symptoms or risks identified at this time. Initial Sepsis Screen: Does the patient meet any 2 criteria? No. Patient's initial sepsis screen is negative. Does the patient have a suspected source of infection? No. Patient's initial sepsis screen is negative. Risk Assessment: Do you want to hurt yourself or someone else? Patient reports no desire to harm self or others. Onset of symptoms was November 07, 2023. 12:23 Method Of Arrival: Ambulatory ko1 12:23 Acuity: RICHY 4 ko1 Triage Assessment: 12:25 General: Appears in no apparent distress. uncomfortable, Behavior is calm, cooperative, ko1 appropriate for age. Pain: Complains of pain in right cheek. Historical: - Allergies: 12:25 No Known Allergies; ko1 - PMHx: 12:25 Diabetes - NIDDM; Hypertension; neuropathy; ko1 - PSHx: 12:25 None; ko1 - Immunization history:: Adult Immunizations unknown. - Infectious Disease History:: Denies. - Social history:: Smoking status: Patient reports the use of cigarette tobacco products, cigars. Screenin:31 [facility] ED Fall Risk Assessment (Adult) History of falling in the last 3 months, as6 including since admission No falls in past 3 months (0 pts) Confusion or Disorientation No (0 pts) Intoxicated or Sedated No (0 pts) Impaired Gait No (0 pts) Mobility Assist Device Used No (0 pt) Altered Elimination No (0 pt) Score/Fall Risk Level 0 - 2 = Low Risk Oriented to surroundings, Maintained a safe environment, Educated pt \T\ family on fall prevention, incl call for assistance when getting out of bed, Assessed \T\ reinforced patient's understanding of fall precautions. Abuse screen: Denies threats or abuse. Denies injuries from another. Nutritional screening: No deficits noted. Tuberculosis screening: No symptoms or risk factors identified. Assessment: 13:08 General: Appears in no apparent distress. uncomfortable, Behavior is calm, cooperative. as6 Pain: Complains of pain in mouth and right cheek. Neuro: Level of Consciousness is awake, alert, obeys commands, Oriented to person, place, time, situation. Cardiovascular: Capillary refill < 3 seconds Patient's skin is warm and dry. Respiratory: Respiratory effort is even, unlabored, Respiratory pattern is regular, symmetrical. GI: No deficits noted. No signs and/or symptoms were reported involving the gastrointestinal system. : No deficits noted. No signs and/or symptoms were reported regarding the genitourinary system. EENT: Poor dentition noted. Derm: Skin is intact, is healthy with good turgor. Musculoskeletal: Circulation, motion, and sensation intact. Vital Signs: 12:23 BP 147 / 95; Pulse 87; Resp 16; Temp 97; Pulse Ox 98% on R/A; ko1 ED Course: 12:21 Patient arrived in ED. mg5 12:21 Harmony Bernal MD is Attending Physician. sp3 12:25 Triage completed. ko1 12:25 Arm band placed on right wrist. Patient placed in an exam room, on a stretcher, on ko1 pulse oximetry, Patient notified of wait time. 12:31 Miller Kay, JULIA is Primary Nurse. as6 13:08 Bed in low position. Call light in reach. Provided Education on: follow up with dental .as6 13:09 No provider procedures requiring assistance completed. Patient did not have IV access as6 during this emergency room visit. Administered Medications: 13:03 Drug: Ketorolac IM 60 mg IM once Route: IM; Site: left ventrogluteal; as6 13:07 Follow up: Response: No adverse reaction as6 13:03 Drug: Amoxicillin-Clavulanate PO 875 mg PO once Route: PO; as6 13:07 Follow up: Response: No adverse reaction as6 Medication: 12:31 VIS not applicable for this client. as6 Outcome: 13:02 Discharge ordered by . sp3 13:09 Discharged to home ambulatory, as6 13: Condition: stable 13: Discharge instructions given to patient, Instructed on discharge instructions, follow up and referral plans. medication usage, Demonstrated understanding of instructions, follow-up care, medications, Prescriptions given X 2, :09 Patient left the ED. as6 Signatures: Harmoyn Bernal MD MD sp3 Miller Kay, RN RN as6 Kenzie Nunez RN RN ko1 Ese Guerrero mg5
--- NOTE | 2023-11-07 13:03 | EDPHYS ---
Physician Documentation [facility] Name: Bucky Norton Jr Age: 38 yrs Sex: Male : 1985 Arrival Date: 11/07/2023 Time: 12:18 Bed 10 Private MD: ED Physician Harmony Bernal HPI: 11/06 12:59 This 38 yrs old Black Male presents to ER via Ambulatory with complaints of Facial sp3 Swelling. 12:59 38-year-old male with history of diabetes, hypertension presents with right sided sp3 facial swelling and dental pain for 2 to 3 days. Patient does not have a dentist. He denies any difficulty swallowing, fever, throat pain, or any other signs or symptoms on ROS at this time.. Historical: - Allergies: 12:25 No Known Allergies; ko1 - PMHx: 12:25 Diabetes - NIDDM; Hypertension; neuropathy; ko1 - PSHx: 12:25 None; ko1 - Immunization history:: Adult Immunizations unknown. - Infectious Disease History:: Denies. - Social history:: Smoking status: Patient reports the use of cigarette tobacco products, cigars. ROS: 13:00 Constitutional: Negative for fever, chills, and weight loss, Eyes: Negative for injury, sp3 pain, redness, and discharge, Neck: Negative for injury, pain, and swelling, Cardiovascular: Negative for chest pain, palpitations, and edema, Respiratory: Negative for shortness of breath, cough, wheezing, and pleuritic chest pain, Abdomen/GI: Negative for abdominal pain, nausea, vomiting, diarrhea, and constipation, Back: Negative for injury and pain, MS/Extremity: Negative for injury and deformity, Skin: Negative for injury, rash, and discoloration, Neuro: Negative for headache, weakness, numbness, tingling, and seizure, Psych: Negative for depression, anxiety, suicide ideation, homicidal ideation, and hallucinations, Allergy/Immunology: Negative for hives, rash, and allergies, Endocrine: Negative for neck swelling, polydipsia, polyuria, polyphagia, and marked weight changes, 13:00 All other systems are negative, Exam: 13:00 Constitutional: This is a well developed, well nourished patient who is awake, alert, sp3 and in no acute distress. Eyes: Pupils equal round and reactive to light, extra-ocular motions intact. Lids and lashes normal. Conjunctiva and sclera are non-icteric and not injected. Cornea within normal limits. Periorbital areas with no swelling, redness, or edema. Neck: Trachea midline, no thyromegaly or masses palpated, and no cervical lymphadenopathy. Supple, full range of motion without nuchal rigidity, or vertebral point tenderness. No Meningismus. Chest/axilla: Normal chest wall appearance and motion. Nontender with no deformity. No lesions are appreciated. Cardiovascular: Regular rate and rhythm with a normal S1 and S2. No gallops, murmurs, or rubs. Normal PMI, no JVD. No pulse deficits. Respiratory: Lungs have equal breath sounds bilaterally, clear to auscultation and percussion. No rales, rhonchi or wheezes noted. No increased work of breathing, no retractions or nasal flaring. Abdomen/GI: Soft, non-tender, with normal bowel sounds. No distension or tympany. No guarding or rebound. No evidence of tenderness throughout. Back: No spinal tenderness. No costovertebral tenderness. Full range of motion. Skin: Warm, dry with normal turgor. Normal color with no rashes, no lesions, and no evidence of cellulitis. MS/ Extremity: Pulses equal, no cyanosis. Neurovascular intact. Full, normal range of motion. Neuro: Awake and alert, GCS 15, oriented to person, place, time, and situation. Cranial nerves II-XII grossly intact. Motor strength 5/5 in all extremities. Sensory grossly intact. Cerebellar exam normal. Normal gait. Psych: Awake, alert, with orientation to person, place and time. Behavior, mood, and affect are within normal limits. 13:00 ENT: Poor dentition including likely cavitary disease in the right maxilla in the molar area. . Vital Signs: 12:23 BP 147 / 95; Pulse 87; Resp 16; Temp 97; Pulse Ox 98% on R/A; ko1 MDM: 12:50 Patient medically screened. sp3 13:01 Data reviewed: vital signs, nurses notes. ED course: 38-year-old male with facial sp3 swelling likely from dental etiology/origin. Will place patient on Augmentin and give first dose in the ED as well as ketorolac IM. I have urged him to follow-up with dentistry soon as possible.. Administered Medications: 13:03 Drug: Ketorolac IM 60 mg IM once Route: IM; Site: left ventrogluteal; as6 13:07 Follow up: Response: No adverse reaction as6 13:03 Drug: Amoxicillin-Clavulanate PO 875 mg PO once Route: PO; as6 13:07 Follow up: Response: No adverse reaction as6 Disposition Summary: 11/07/23 13:02 Discharge Ordered Notes: Location: Home sp3 Condition: Stable sp3 Diagnosis - Dental pain, dental abscess sp3 Followup: sp3 - With: Private Physician - When: Upon discharge from the Emergency Department - Reason: Continuance of care Discharge Instructions: - Discharge Summary Sheet sp3 - Dental Abscess sp3 Forms: - Medication Reconciliation Form sp3 - Thank You Letter sp3 - Antibiotic Education sp3 - Prescription Opioid Use sp3 - Patient Portal Instructions sp3 - Leadership Thank You Letter sp3 - Work release form as6 Prescriptions: - Augmentin 875-125 mg Oral Tablet - take 1 tablet ORAL route every 12 hours for 10 days; 20 tablet; Refills: 0, sp3 Product Selection Permitted - Tramadol 50 mg Oral Tablet - take 1 tablet ORAL route every 8 hours as needed; 12 tablet; Refills: 0, sp3 Product Selection Permitted Signatures: Harmony Bernal MD MD sp3 Miller Kay RN RN as6 Kenzie Nunez RN RN ko1
[2023-11-07 21:23] VITALS: BP 147/95; TEMP 97; O2SAT 98
== END 2023-11-07 13:09 | disposition home or self-care (01) ==
LOC: ER 12:18
DX: K04.7 Periapical abscess without sinus (principal); Z72.0 Tobacco use

== ENCOUNTER 2024-05-05 08:23 | Emergency (ER) | payer BC ==
[2024-05-05 09:06] LABS: SARS-CoV-2 Antigen CONTROL BLUE LINE VIS/BG OK; SARS-CoV-2 Antigen Rapid Res Negative (Negative)
--- NOTE | 2024-05-05 09:20 | ER ---
Nurse's Notes [facility] Name: Bucky Norton Jr Age: 39 yrs Sex: Male : 1985 Arrival Date: 05/05/2024 Time: 08:23 Bed 15 Private MD: Diagnosis: Streptococcal pharyngitis Presentation: 05/05 08:41 Chief complaint: Sinus congestion, runny nose, headache, sore throat, and cough x 3 hb days, diarrhea this morning. Coronavirus screen: Client presents with at least one sign or symptom that may indicate coronavirus-19. Standard/surgical mask placed on the client. Provider contacted for isolation considerations. Ebola Screen: No symptoms or risks identified at this time. Initial Sepsis Screen: Does the patient meet any 2 criteria? No. Patient's initial sepsis screen is negative. Does the patient have a suspected source of infection? No. Patient's initial sepsis screen is negative. Risk Assessment: Do you want to hurt yourself or someone else? Patient reports no desire to harm self or others. Onset of symptoms was May 03, 2024. 08:41 Method Of Arrival: Ambulatory hb 08:41 Acuity: RICHY 4 hb Historical: - Allergies: 08:47 No Known Allergies; hb - PMHx: 08:47 Diabetes - NIDDM; Hypertension; neuropathy; hb - Immunization history:: Adult Immunizations up to date. - Infectious Disease History:: Denies. - Social history:: Smoking status: Patient denies any tobacco usage or history of. Screenin:11 [facility] ED Fall Risk Assessment (Adult) History of falling in the last 3 months, kc6 including since admission No falls in past 3 months (0 pts) Confusion or Disorientation No (0 pts) Intoxicated or Sedated No (0 pts) Impaired Gait No (0 pts) Mobility Assist Device Used No (0 pt) Altered Elimination No (0 pt) Score/Fall Risk Level 0 - 2 = Low Risk Oriented to surroundings. Abuse screen: Denies threats or abuse. Denies injuries from another. Nutritional screening: No deficits noted. Tuberculosis screening: No symptoms or risk factors identified. Assessment: 09:12 General: Appears in no apparent distress. comfortable, well groomed, well developed, kc6 Behavior is calm, cooperative, appropriate for age. Neuro: Level of Consciousness is awake, alert, obeys commands, Oriented to person, place, time, situation, Appropriate for age Reports headache. Cardiovascular: Capillary refill < 3 seconds. Respiratory: Reports cough that is Airway is patent Trachea midline Respiratory effort is even, unlabored, Respiratory pattern is regular, symmetrical. GI: Reports diarrhea, Patient currently denies abdominal pain, nausea, vomiting. : No signs and/or symptoms were reported regarding the genitourinary system. EENT: Reports nasal congestion pain when swallowing. Derm: No signs and/or symptoms reported regarding the dermatologic system. Skin is intact, is healthy with good turgor, Skin is pink, warm \T\ dry. Musculoskeletal: No signs and/or symptoms reported regarding the musculoskeletal system. Circulation, motion, and sensation intact. Capillary refill < 3 seconds, Range of motion: intact in all extremities. Vital Signs: 08:41 BP 149 / 109; Pulse 89; Resp 18; Temp 98.3(O); Pulse Ox 100% on R/A; Weight 108.86 kg; hb Height 6 ft. 0 in. ; Pain 5/10; 09:34 BP 139 / 88; Pulse 85; Resp 19 S; Pulse Ox 99% on R/A; kc6 08:41 Body Mass Index 32.55 (108.86 kg, 182.88 cm) hb 08:41 Pain Scale: Adult hb ED Course: 08:26 Patient arrived in ED. im 08:26 Elizabeth Valentine FNP-C is PHCP. kb 08:26 Trevin Macario MD is Attending Physician. kb 08:47 Triage completed. hb 08:47 Arm band placed on. hb 09:11 Denice Rothman, RN is Primary Nurse. kc6 09:11 Patient has correct armband on for positive identification. Bed in low position. Call kc6 light in reach. Side rails up X 1. Pulse ox on. NIBP on. Door closed. Noise minimized. Pillow given. 09:11 Patient maintains SpO2 saturation greater than 95% on room air. kc6 09:34 No provider procedures requiring assistance completed. Patient did not have IV access kc6 during this emergency room visit. Administered Medications: 09:34 Drug: Amoxicillin-Clavulanate PO 875 mg PO once Route: PO; kc6 09:34 Drug: Dexamethasone IM 10 mg IM once Route: IM; Site: right deltoid; kc6 Medication: 09:34 VIS not applicable for this client. kc6 Outcome: 09:20 Discharge ordered by . gianni 09:34 Discharged to home ambulatory, kc6 09:34 Condition: good 09:34 Discharge instructions given to patient, Instructed on discharge instructions, follow up and referral plans. medication usage, Demonstrated understanding of instructions, follow-up care, medications, Prescriptions given X 1, 09:35 Patient left the ED. kc6 Signatures: Elizabeth Valentine, [employer] SHRUTHI-Suma Hernandez RN RN Denice Rothman RN RN kc6 Daksha Martínez
--- NOTE | 2024-05-05 09:21 | EDPHYS ---
Physician Documentation [facility] Name: Bucky Norton Jr Age: 39 yrs Sex: Male : 1985 Arrival Date: 05/05/2024 Time: 08:23 Bed 15 Private MD: ED Physician Trevin Macario HPI: 05/05 09:17 This 39 yrs old Black Male presents to ER via Ambulatory with complaints of Flu kb Symptoms. 09:17 Pt is a 39 year old male who presents for severe congestion and mild cough that started kb 3 days ago. Denies fever, nausea, vomiting. Reports some diarrhea this morning. denies abd pain. No aggravating or alleviating factors. No relief with otc medications. Historical: - Allergies: 08:47 No Known Allergies; hb - PMHx: 08:47 Diabetes - NIDDM; Hypertension; neuropathy; hb - Immunization history:: Adult Immunizations up to date. - Infectious Disease History:: Denies. - Social history:: Smoking status: Patient denies any tobacco usage or history of. ROS: 09:17 Constitutional: As per HPI kb Exam: 09:17 Constitutional: This is a well developed, well nourished patient who is awake, alert, kb and in no acute distress. Head/Face: Normocephalic, atraumatic. Cardiovascular: Regular rate Respiratory: Respirations even and unlabored. No increased work of breathing. Talking in full sentences Abdomen/GI: Soft, non-tender. No distention Skin: Warm, dry with normal turgor. Normal color. MS/ Extremity: Pulses equal, no cyanosis. Neurovascular intact. Full, normal range of motion. Neuro: Awake and alert, GCS 15, oriented to person, place, time, and situation. Moves all extremities. Normal gait. 09:17 ENT: External ear(s): are unremarkable, Ear canal(s): are normal, TM's: are normal, Posterior pharynx: Tonsils: bilaterally enlarged, with erythema, with exudate, swelling, that is mild, that is moderate, erythema, that is moderate, Vital Signs: 08:41 BP 149 / 109; Pulse 89; Resp 18; Temp 98.3(O); Pulse Ox 100% on R/A; Weight 108.86 kg; hb Height 6 ft. 0 in. ; Pain 5/10; 09:34 BP 139 / 88; Pulse 85; Resp 19 S; Pulse Ox 99% on R/A; kc6 08:41 Body Mass Index 32.55 (108.86 kg, 182.88 cm) hb 08:41 Pain Scale: Adult hb MDM: 08:26 Patient medically screened. kb 09:18 Differential diagnosis: flu, covid, uri, strep, sinusitis. Data reviewed: vital signs, kb nurses notes. Test considered but Not performed: X-ray: CXR considered but lungs clear bilaterally, resp even and unlabored. . Counseling: I had a detailed discussion with the patient and/or guardian regarding the historical points, exam findings, and any diagnostic results supporting the discharge/admit diagnosis, lab results, the need for outpatient follow up, a family practitioner, to return to the emergency department if symptoms worsen or persist or if there are any questions or concerns that arise at home. 05/05 08:43 Order name: Flu kb 05/05 08:43 Order name: SARS-COV-2 Antigen Rapid; Complete Time: 09:16 kb 05/05 08:43 Order name: Strep; Complete Time: 09:16 kb Administered Medications: 09:34 Drug: Amoxicillin-Clavulanate PO 875 mg PO once Route: PO; kc6 09:34 Drug: Dexamethasone IM 10 mg IM once Route: IM; Site: right deltoid; kc6 Disposition: 09:41 Co-signature as Attending Physician, Trevin Macario MD I reviewed the patient's care rn provided by the Advanced Practice Provider and agree with the diagnosis and treatment plan. Disposition Summary: 05/05/24 09:20 Discharge Ordered Notes: Location: Home kb Condition: Stable kb Diagnosis - Streptococcal pharyngitis kb Followup: kb - With: Emergency Department - When: As needed - Reason: Worsening of condition Followup: kb - With: Private Physician - When: 2 - 3 days - Reason: Recheck today's complaints, Continuance of care, Re-evaluation by your physician Discharge Instructions: - Discharge Summary Sheet kb - Strep Throat, Adult, [id number] kb Forms: - Work release form kb - Medication Reconciliation Form kb - Antibiotic Education kb - Prescription Opioid Use kb - Patient Portal Instructions kb - Leadership Thank You Letter kb Prescriptions: - Augmentin 875-125 mg Oral Tablet - take 1 tablet ORAL route every 12 hours for 10 days; 20 tablet; Refills: 0, kb Product Selection Permitted Signatures: Dispatcher [employer] Elizabeth Daley, GUIDE ESCORT-C GUIDE ESCORT-CkTrevin Miller MD MD rn Baxter, Heather RN RN Denice Treadwell RN RN kc6
[2024-05-05] MEDS ORDERED: AMOX/K CLAV 875 MG TAB ONE (09:29)
[2024-05-05] MEDS ORDERED: dexAMETHasone 10 MG/ML VIAL ONE (09:29)
[2024-05-05 10:51] VITALS: TEMP 98.3
[2024-05-05 10:52] VITALS: BP 139/88; O2SAT 99
== END 2024-05-05 09:35 | disposition home or self-care (01) ==
LOC: ER 08:23
DX: J02.0 Streptococcal pharyngitis (principal); Z11.52 Encounter for screening for COVID-19
CPT/HCPCS: 36415; 87081; 87804 ×2; 87811; J1100; 96372; 99284

== ENCOUNTER 2024-05-07 19:06 | Emergency (ER) | payer BC ==
[2024-05-07] MEDS ORDERED: CEFTRIAXONE 1000 MG/VIAL ONE (20:28)
[2024-05-07] MEDS ORDERED: LIDOCAINE 1% MPF 2 ML AMPULE ONE (20:28)
[2024-05-07] MEDS ORDERED: METHYLPREDNISOLONE 125 MG INJ ONE (20:28)
--- NOTE | 2024-05-07 21:34 | ER ---
Nurse's Notes [facility] Name: Bucky Norton Jr Age: 39 yrs Sex: Male : 1985 Arrival Date: 05/07/2024 Time: 19:06 Bed 12 Private MD: Diagnosis: Nasal congestion;Candidiasis of other sites Presentation: 05/07 19:22 Chief complaint: Patient states: here Sunday and diagnosed with strep. since then i now lg3 have sinus congestion and cant breathe through my nose. Coronavirus screen: Client denies travel out of the [place] in the last 14 days. Client presents with at least one sign or symptom that may indicate coronavirus-19. Standard/surgical mask placed on the client. Ebola Screen: No symptoms or risks identified at this time. Initial Sepsis Screen: Does the patient meet any 2 criteria? No. Patient's initial sepsis screen is negative. Does the patient have a suspected source of infection? No. Patient's initial sepsis screen is negative. Risk Assessment: Do you want to hurt yourself or someone else? Patient reports no desire to harm self or others. Onset of symptoms is unknown. 19:22 Method Of Arrival: Ambulatory lg3 19:22 Acuity: RICHY 4 lg3 Triage Assessment: 19:25 General: Appears in no apparent distress. uncomfortable, Behavior is calm, cooperative. lg3 Pain: Denies pain. EENT: Reports nasal congestion nasal discharge. Neuro: No deficits noted. Still Agitation-Sedation Scale (RASS): 0 - Alert and Calm Level of Consciousness is awake, alert, obeys commands, Oriented to person, place, time, situation. Cardiovascular: No deficits noted. Denies chest pain, shortness of breath, Capillary refill < 3 seconds Clubbing of nail beds is absent JVD is absent Patient's skin is warm and dry. Respiratory: Reports cough that is Breath sounds are clear bilaterally. GI: No deficits noted. No signs and/or symptoms were reported involving the gastrointestinal system. : No deficits noted. No signs and/or symptoms were reported regarding the genitourinary system. Derm: No deficits noted. No signs and/or symptoms reported regarding the dermatologic system. Skin is intact, is healthy with good turgor, Skin is dry, Skin is normal, Skin temperature is warm. Musculoskeletal: No deficits noted. No signs and/or symptoms reported regarding the musculoskeletal system. Circulation, motion, and sensation intact. Range of motion: intact in all extremities. Historical: - Allergies: 19:25 No Known Allergies; lg3 - Home Meds: 19:25 None [Active]; lg3 - PMHx: 19:25 Diabetes - NIDDM; Hypertension; neuropathy; lg3 - PSHx: 19:25 None; lg3 - Immunization history:: Adult Immunizations up to date. - Infectious Disease History:: Denies. - Social history:: Smoking status: Patient reports the use of cigarette tobacco products, smokes one-half pack cigarettes per day, Patient/guardian denies using alcohol, street drugs. Screenin:47 [facility] ED Fall Risk Assessment (Adult) History of falling in the last 3 months, cm10 including since admission No falls in past 3 months (0 pts) Confusion or Disorientation No (0 pts) Intoxicated or Sedated No (0 pts) Impaired Gait No (0 pts) Mobility Assist Device Used No (0 pt) Altered Elimination No (0 pt) Score/Fall Risk Level 0 - 2 = Low Risk Oriented to surroundings, Maintained a safe environment, Hourly rounding (assess needs \T\ fall precautionary measures) done. Abuse screen: Denies threats or abuse. Denies injuries from another. Nutritional screening: No deficits noted. Tuberculosis screening: No symptoms or risk factors identified. Assessment: 20:46 General: Appears in no apparent distress. uncomfortable, Behavior is calm, cooperative. cm10 Neuro: No deficits noted. Level of Consciousness is awake, alert, obeys commands, Oriented to person, place, time, situation, Appropriate for age. Cardiovascular: No deficits noted. Heart tones present Patient's skin is warm and dry. Respiratory: No deficits noted. Airway is patent Respiratory effort is even, unlabored, Respiratory pattern is regular, symmetrical, Breath sounds are clear bilaterally. Respiratory:. EENT: Throat is reddened has patchy exudate has enlarged tonsils Reports nasal congestion pain when swallowing. Vital Signs: 19:22 BP 152 / 106; Pulse 95; Resp 17 S; Temp 99(O); Weight 108.86 kg (R); Height 6 ft. 0 in. lg3 (R); 20:15 BP 138 / 98; Pulse 92; Resp 18; Pulse Ox 98% ; cm10 19:22 Body Mass Index 32.55 (108.86 kg, 182.88 cm) lg3 ED Course: 19:10 Patient arrived in ED. mg5 19:25 Triage completed. lg3 19:25 Arm band placed on right wrist. lg3 19:28 Dylan Pascal PA is PHCP. cp 19:28 Dylan Bettencourt MD is Attending Physician. cp 20:03 Saskia Cobian, RN is Primary Nurse. cm10 20:47 Patient has correct armband on for positive identification. Bed in low position. Call cm10 light in reach. Side rails up X 1. Provided Education on: ER process and procedures.. 21:41 No provider procedures requiring assistance completed. Patient did not have IV access cm10 during this emergency room visit. Administered Medications: 20:46 Drug: Rocephin (cefTRIAXone) IM 1 grams IM once Route: IM; Site: right vastus lateralis;cm10 21:41 Follow up: Response: No adverse reaction cm10 20:46 Drug: MethylPREDNISolone Sodium Succinate IM 125 mg IM once Route: IM; Site: left cm10 vastus lateralis; 21:41 Follow up: Response: No adverse reaction cm10 Medication: 20:47 VIS not applicable for this client. cm10 Outcome: 21:14 Discharge ordered by MD. cp 21:42 Discharged to home ambulatory, cm10 21:42 Condition: good 21:42 Discharge instructions given to patient, Instructed on discharge instructions, follow up and referral plans. medication usage, Demonstrated understanding of instructions, follow-up care, medications, Prescriptions given X 2, 21:42 Patient left the ED. cm10 Signatures: Dylan Pascal PA PA cp Able, Lacie, RN RN lg3 Saskia Cobian, JULIA RN cm10 Ese Guerrero [facility]
--- NOTE | 2024-05-07 21:34 | EDPHYS ---
Physician Documentation [facility] Name: Bucky Norton Jr Age: 39 yrs Sex: Male : 1985 Arrival Date: 05/07/2024 Time: 19:06 Bed 12 Private MD: ED Physician Dylan Bettencourt HPI: 05/07 19:40 This 39 yrs old Black Male presents to ER via Ambulatory with complaints of Congestion. cp 19:40 The patient presents with nasal congestion. cp 19:40 Onset: The symptoms/episode began/occurred 3 day(s) ago. cp 19:40 Associated signs and symptoms: Pertinent positives: cough, sore throat, Pertinent cp negatives: fever. Severity of symptoms: in the emergency department the symptoms are unchanged despite home interventions, has been using Afrin nasal spray and Flonase nasal spray for past 3 days. Reports seen in this ED this past Sunday and diagnosed with strep throat. Currently taking prescribed Amoxicillin. Historical: - Allergies: 19:25 No Known Allergies; lg3 - Home Meds: 19:25 None [Active]; lg3 - PMHx: 19:25 Diabetes - NIDDM; Hypertension; neuropathy; lg3 - PSHx: 19:25 None; lg3 - Immunization history:: Adult Immunizations up to date. - Infectious Disease History:: Denies. - Social history:: Smoking status: Patient reports the use of cigarette tobacco products, smokes one-half pack cigarettes per day, Patient/guardian denies using alcohol, street drugs. ROS: 19:45 ENT: Positive for nasal congestion, sore throat, cp 19:45 Eyes: Negative for injury, pain, redness, and discharge, cp 19:45 Constitutional: Negative for body aches, chills, fever, poor PO intake, 19:45 Respiratory: Positive for cough, 19:45 Neuro: Negative for altered mental status, dizziness, headache, weakness, 19:45 All other systems are negative, Exam: 19:50 Constitutional: The patient appears in no acute distress, alert, awake, non-toxic, well cp developed, well nourished, uncomfortable, 19:50 Head/Face: Normocephalic, atraumatic. cp 19:50 Eyes: Periorbital structures: appear normal, Conjunctiva: normal, no exudate, no injection, Sclera: no appreciated abnormality, Lids and lashes: appear normal, bilaterally, 19:50 ENT: External ear(s): are unremarkable, Ear canal(s): are normal, clear, TM's: bulging, is not appreciated, bilaterally, dullness, bilaterally, erythema, is not appreciated, bilaterally, Nose: is normal, Mouth: Lips: moist, Oral mucosa: moist, Posterior pharynx: Airway: no evidence of obstruction, patent, erythema, that is marked, exudate, that is marked, upper palate and uvula and posterior oralpharynx, 19:50 Neck: ROM/movement: is normal, is supple, no meningismus, no nuchal rigidity, 19:50 Chest/axilla: Inspection: normal, 19:50 Cardiovascular: Rate: normal, Rhythm: regular, 19:50 Respiratory: the patient does not display signs of respiratory distress, Respirations: normal, no use of accessory muscles, no retractions, labored breathing, is not present, Breath sounds: are clear throughout, no decreased breath sounds, no stridor, no wheezing, 19:50 Abdomen/GI: Exam negative for discomfort, distension, guarding, Inspection: abdomen appears normal, Vital Signs: 19:22 BP 152 / 106; Pulse 95; Resp 17 S; Temp 99(O); Weight 108.86 kg (R); Height 6 ft. 0 in. lg3 (R); 20:15 BP 138 / 98; Pulse 92; Resp 18; Pulse Ox 98% ; cm10 19:22 Body Mass Index 32.55 (108.86 kg, 182.88 cm) lg3 MDM: 19:28 Medical Screening Exam initiated cp 20:00 Differential diagnosis: congestion, sinusitis, rebound congestion from use of Afrin, cp tonsillitis, oral candidiasis. 21:13 Data reviewed: vital signs, nurses notes, and as a result, I will discharge patient. 21:13 I considered the following discharge prescriptions or medication management in the emergency department Medications were administered in the Emergency Department. See MAR. Care significantly affected by the following chronic conditions: Diabetes, Hypertension. Counseling: I had a detailed discussion with the patient and/or guardian regarding the historical points, exam findings, and any diagnostic results supporting the discharge/admit diagnosis, the need for outpatient follow up, a family practitioner, to return to the emergency department if symptoms worsen or persist or if there are any questions or concerns that arise at home. Administered Medications: 20:46 Drug: Rocephin (cefTRIAXone) IM 1 grams IM once Route: IM; Site: right vastus lateralis;cm10 21:41 Follow up: Response: No adverse reaction cm10 20:46 Drug: MethylPREDNISolone Sodium Succinate IM 125 mg IM once Route: IM; Site: left cm10 vastus lateralis; 21:41 Follow up: Response: No adverse reaction cm10 Disposition Summary: 05/07/24 21:14 Discharge Ordered Notes: Location: Home cp Problem: new cp Symptoms: have improved cp Condition: Stable cp Diagnosis - Nasal congestion cp - Candidiasis of other sites cp Followup: cp - With: Private Physician - When: 2 - 3 days - Reason: Recheck today's complaints Discharge Instructions: - Discharge Summary Sheet cp - Skin Yeast Infection cp Forms: - Medication Reconciliation Form cp - Antibiotic Education cp - Prescription Opioid Use cp - Patient Portal Instructions cp - Leadership Thank You Letter cp - Work release form cm10 Prescriptions: - Bromfed DM 2-30-10 mg/5 mL Oral syrup - administer 10 milliliter ORAL route every 6 hours as needed for cold symptoms; cp 240 milliliter; Refills: 0, Product Selection Permitted - clotrimazole 10 mg Mucous Membrane Jacinto - dissolve 1 tablet MUCOUS MEMBRANE route 5 times per day for 10 days; 50 tablet; cp Refills: 0, Product Selection Permitted Signatures: Dylan Pascal PA PA cp Able, Lacie, RN RN lg3 Saskia Cobian RN RN cm10
[2024-05-08 00:58] VITALS: TEMP 99
[2024-05-08 00:59] VITALS: BP 138/98; O2SAT 98
== END 2024-05-07 21:42 | disposition home or self-care (01) ==
LOC: ER 19:06
DX: R09.81 Nasal congestion (principal); B37.89 Other sites of candidiasis; E11.9 Type 2 diabetes mellitus without complications; I10 Essential (primary) hypertension; F17.210 Nicotine dependence, cigarettes, uncomplicated
CPT/HCPCS: 96372; 99284; J2919; J0696